=== PATIENT | female | born 1985 | race Two or more races ===

== ENCOUNTER 2017-11-27 10:20 | Emergency (ER) | payer MEDICAID ==
[~2017-11-27] VITALS: Ht 160 cm; Wt 77.1 kg
[2017-11-27 10:36] VITALS: BP 131/73
== END 2017-11-27 11:14 | disposition home or self-care (01) ==
LOC: ER 10:20
DX: N39.0 Urinary tract infection, site not specified (principal)
CPT/HCPCS: 81002

== ENCOUNTER 2022-09-22 18:03 | Emergency (ER) | payer MEDICAID ==
[~2022-09-22] VITALS: Ht 162.6 cm; Wt 77.3 kg
[~2022-09-22 18:03] MED LIST: PREN-96 PO
[2022-09-22 21:05] LABS: Urine Bacteria NONE SEEN /hpf (None Seen); Urine Blood Negative /uL (Negative); Urine Hyaline Cast FEW /lpf (0 - 2); Urine Mucus FEW (None Seen); Urine Specific Gravity 1.022 (1.001-1.035); Urine WBC 39 /hpf (0 - 5)
[2022-09-22] MEDS ORDERED: SULF400T11 PO ×3 (21:14→21:15)
[2022-09-22] MEDS ORDERED: cefTRIAXone SOD 1,000 MG VL IM ONE (21:30)
[2022-09-22] MEDS ORDERED: KETOROLAC TROMETH 60MG/2ML VIAL IM ONE (21:30)
[2022-09-22] MEDS ORDERED: SULFAMETHOX W/TRIMETH(800/160MG) DS TAB PO ONE (21:30)
[2022-09-22 21:49] VITALS: BP 137/86
== END 2022-09-22 21:59 | disposition home or self-care (01) ==
LOC: ER 18:03
DX: N39.0 Urinary tract infection, site not specified (principal); I10 Essential (primary) hypertension
CPT/HCPCS: 81001; 96372; 99284; J0696; J1885

== ENCOUNTER 2024-06-19 01:08 | Emergency (ER) | payer MEDICAID ==
[~2024-06-19] VITALS: Ht 160 cm; Wt 78.7 kg
[~2024-06-19 01:08] MED LIST changes: +SULF400T11 PO
[2024-06-19 02:30] VITALS: BP 148/84; PULSE 94; RESP 16; TEMP 98.1; O2SAT 97
--- NOTE | 2024-06-19 02:58 | ED.PDOC ---
Musculoskeletal HPI Comments 38-year-old female presents to ER with complaints of left knee pain x1 month. Patient with no PMH reports that she tripped and fell and landed on her left knee on cement one month ago and has since been experiencing pain/swelling /bruising to left knee with associated swelling/bruising to left lower leg. Den ies ever seeing a provider with regards to her symptoms. She rates her current pain a 10/10 to left anterior knee with radiation down posterior left leg. Denies use of medications for current symptoms. Patient presents to ER ambulatory on arrival, favoring right leg on ambulation with vitals stable. She states that bruising to left lower leg has improved but the swelling has not. Denies fever, body aches, chills, numbness/tingling, shortness of breath, calf pain, chest pain or any further symptoms/complaints Chief Complaint: Lower Extremity Time Seen by MD: 01:53 Primary Care Provider: UNKNOWN Reviewed Notes: Nurses Notes, Medications, Allergies Allergies: Coded Allergies: NO KNOWN ALLERGIES (Unverified , 11/27/17) Home Meds Active Scripts Sulfamethoxazole-Trimethoprim (Bactrim) 1 Tab Tab, 1 TAB PO BID for 5 Days, #10 TAB 0 Refills Prov:JUAN HAN 09/22/22 Reported Medications Vit W/ Ferrous Fumara ( One Daily) Daily Tab, 1 TAB PO DAILY, #90 TAB 3 Refills 04/01/19 Information Source: Patient Mode of Arrival: Ambulatory Past Medical History PAST MEDICAL HISTORY: HTN Surgical History: Denies all surgeries 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 [facility] 06-19-24 Family History Family History: Unknown Social History Smoker: Non-Smoker Alcohol: Denies ETOH Use Drugs: Denies Drug Use Lives In: Home Constitutional: denies: chills, diaphoresis, fatigue, fever, malaise, sweats, weakness, others EENTM: denies: blurred vision, double vision, ear bleeding, ear discharge, ear drainage, ear pain, ear ringing, eye pain, eye redness, hearing loss, mouth pain, mouth swelling, nasal discharge, nose bleeding, nose congestion, nose pain, photophobia, tearing, throat pain, throat swelling, voice changes, others Respiratory: denies: cough, hemoptysis, orthopnea, SOB at rest, shortness of breath, SOB with excertion, stridor, wheezing, others Cardiovascular: denies: chest pain, dizzy spells, diaphoresis, Dyspnea on exertion, edema, irregular heart beat, left arm pain, lightheadedness, palpitations, PND, syncope, others Gastrointestinal: denies: abdomen distended, abdominal pain, blood streaked bowels, constipated, diarrhea, dysphagia, difficulty swallowing, hematemesis, melena, nausea, poor appetite, poor fluid intake, rectal bleeding, rectal pain, vomiting, others Genitourinary: denies: abnormal vagina bleeding, burning, dyspareunia, dysuria, flank pain, frequency, hematuria, incontinence, pain, , vagina discharge, urgency, others Neurological: denies: dizziness, fainting, headache, left sided numbness, left sided weakness, numbness, paresthesia, pre-existing deficit, right sided numbness, right sided weakness, seizure, speech problems, tingling, tremors, weakness, others Musculoskeletal: reports: others (As stated in HPI) Integumetry: reports: others (As stated in HPI) Allergic/Immunocompromised: denies: Difficulty Healing, Frequent Infections, Hives, Itching, others Hematologic/Lymphatic: denies: anemia, blood clots, easy bleeding, easy bruising, swollen glands, others Endocrine: denies: excessive hunger, excessive sweating, excessive thirst, excessive urination, flushing, intolerance to cold, intolerance to heat, unexplained weight gain, unexplained weight loss, others Psychiatric: denies: anxiety, bipolar disorder, depression, hopeless, panic disorder, schizophrenia, sleepless, suicidal, others Physical Exam General Appearance: Mild Distress (Due to pain), Obese HEENT: PERRL/EOMI Neck: Full Range of Motion, Non-Tender, Normal Respiratory: Chest Non-Tender, Lungs Clear, No Accessory Muscle Use, No Respiratory Distress, Normal Breath Sounds Cardiovascular: No Murmur, No Gallop, Regular Rate/Rhythm Breast Exam: Deferred Gastrointestinal: NOT DONE Genitalia: Deferred Pelvic: Deferred Rectal: Deferred Extremities: Calf tenderness (Slight TTP to left posterior calf noted), Normal capillary refill, Normal range of motion, No pedal edema Musculoskeletal : Extremity Location: Knee (TTP/mild swelling/ecchymosis noted to left anterior knee. Positive anterior drawer test left knee. Negative Luis Miguel's test left knee. Slight swelling/ecchymosis also noted to left mid tib-fib. No deformities appreciated. Pulses intact. Patient favors right leg on ambulation due to pain localized to left anterior knee) Neurologic: Alert, No Motor Deficits, No Sensory Deficits Cerebellar Function: Normal Reflexes: Normal Skin: Dry, Warm Peripheral Pulses: 2+ femoral (R), 2+ femoral (L), 2+ dorsalis pedis (R), 2+ dorsalis pedis (L) Lymphatic: Inguinal Node Tender (L) Was a procedure done? Was a procedure done?: No Sedation Sedation?: No Differential Diagnosis EXT Differential Diagnosis: Deep Vein Thrombosis, Fracture, Dislocation, Neurovascular injury X-Ray, Labs, Meds, VS Vital Signs Date Time Temp Pulse Resp B/P (MAP) Pulse Ox O2 Delivery O2 Flow Rate FiO2 06/19/24 02:30 94 16 97 Room Air* 0 21 06/19/24 02:30 98.1 94 16 148/84 (105) 97 98.1 06/19/24 01:25 98.1 94 16 156/94 (114) 100 Current Medications Medications (Trade) Dose Ordered Sig/Dom Route Start Time Stop Time Status Last Admin Ketorolac Tromethamine (Toradol Injection) 60 mg ONCE ONCE IM 06/19/24 03:00 06/19/24 03:01 DC 06/19/24 03:18 PATIENT: MOLLY AJ ACCT: [id number] UNIT: [id number] : 1985 LOC: ER ROOM / BED: / AGE / SEX: 38 / F ADM STATUS: REG ER SERVICE 0151 ORDERING PHYSICIAN: KYM DE LA TORRE PROCEDURE(s): LLDVT - LT Lower DVT REASON: left leg pain ORDER NUMBER(s): [id number], ACCESSION NUMBER(s): [id number] Examination: LLDVT CLINICAL INDICATION: left leg pain COMPARISON: None. TECHNIQUE: Using real-time ultrasonic imaging and color Doppler, the deep venous system of the left lower extremity was studied carefully. FINDINGS: Examination of the left common femoral vein, deep femoral vein, proximal, middle and distal segments of the left superficial femoral vein, popliteal vein and left posterior tibial vein reveal normal phasicity, full compression and augmentation. No thrombus is visualized in the images submitted. An enlarged reactive left inguinal lymph node is identified 4.1 x 3.4 X 1.0 cm with a well-defined fatty hilum. IMPRESSION: 1. No evidence of deep venous thrombosis left lower extremity could be identified. 2. Mildly enlarged reactive left inguinal lymph node is identified. Electronically Signed 06/19/2024 03:09 Shimon Mcduffie ATED BY: RACHAEL SANCHEZ MD DICTATED DATE/TIME: 06/19/24308 SIGNED BY: RACHAEL SANCHEZ MD SIGNED DATE/TIME: 06/19/24308 CC: PATIENT: MOLLY AJ ACCT: [id number] UNIT: [id number] : 1985 LOC: ER ROOM / BED: / AGE / SEX: 38 / F ADM STATUS: REG ER SERVICE 4 ORDERING PHYSICIAN: KYM DE LA TORRE PROCEDURE(s): LKNE3 - L KNEE 3V XRAY REASON: left knee pain ORDER NUMBER(s): [id number], ACCESSION NUMBER(s): [id number] CLINICAL INDICATION: left knee pain TECHNIQUE: XY L KNEE 3V XRAY Comparison: None FINDINGS/IMPRESSION: There is no evidence of acute fracture or dislocation. Mild osteoarthrtiis. The alignment is anatomical. There is no radiopaque foreign body. ATED BY: KELBY NG MD DICTATED DATE/TIME: 06/19/24354 SIGNED BY: KELBY NG MD SIGNED DATE/TIME: 06/19/24354 CC: Left lower DVT ultrasound reviewed Left knee x-ray reviewed Patient neurovascularly intact Left knee immobilizer applied Crutches ordered, patient educated on proper use. Was advised to use at all times Toradol 60 mg IM ordered Advised on rest/ no strenuous activity, elevation and alternate ice on/off as needed for pain/swelling Patient provided information with regards to local PCPs and orthopedics and advised to follow up in 1-2 days Patient verbalized understanding and agreeable with current plan of care Advised to return to ER immediately if symptoms worsen Images Reviewed?: Images reviewed and evaluated by me Time of 1ST Reevaluation: 02:24 Reevaluation 1ST: N/A Patient Education/Counseling: Diagnosis, Treatment, Prognosis, Need For Follow Up Family Education/Counseling: No Family Present Departure 1 Departure Time of Disposition: 02:52 Impression: Primary Impression: Left knee sprain Qualified Codes: S83.92XA - Sprain of unspecified site of left knee, initial encounter Additional Impression: Contusion of lower limb, left Qualified Codes: S80.12XA - Contusion of left lower leg, initial encounter Disposition: 01 HOME / SELF CARE / HOMELESS Condition: Stable Discharged With: Friend Critical Care Note Critical Care Time?: No Stability Stability form required: No Heart Score Heart Score: Heart Score Response (Comments) Value History N/A 0 EKG N/A 0 Age N/A 0 Risk Factors N/A 0 Troponin N/A 0 Total 0 KYM DE LA TORRE Jun 19, 2024 02:58
[2024-06-19] MEDS: KETOROLAC TROMETH 60MG/2ML VIAL IM ONE (03:18)
--- NOTE | 2024-06-19 03:18 | DVH ---
Examination: LLDVT CLINICAL INDICATION: left leg pain COMPARISON: None. TECHNIQUE: Using real-time ultrasonic imaging and color Doppler, the deep venous system of the left lower extremity was studied carefully. FINDINGS: Examination of the left common femoral vein, deep femoral vein, proximal, middle and dista l segments of the left superficial femoral vein, popliteal vein and left posterior tibial vein reveal normal phasicity, full compression and augmentation. No thrombus is visualized in the images submit leonard. An enlarged reactive left inguinal lymph node is identified 4.1 x 3.4 X 1.0 cm with a well-defined fa tty hilum. IMPRESSION: 1. No evidence of deep venous thrombosis left lower extremity could be identified. 2. Mildly enlarged reactive left inguinal lymph node is identified. Electronically Signed 06/19/2024 03:09 Shimon Mcduffie
--- NOTE | 2024-06-19 03:57 | DVH ---
CLINICAL INDICATION: left knee pain TECHNIQUE: XY L KNEE 3V XRAY Comparison: None FINDINGS/IMPRESSION: There is no evidence of acute fracture or dislocation. Mild osteoarthrtiis. The alignment is anatomical. There is no radiopaque foreign body.
== END 2024-06-19 04:05 | disposition home or self-care (01) ==
LOC: ER 01:08
DX: S83.92XA Sprain of unspecified site of left knee, initial encounter (principal); S80.12XA Contusion of left lower leg, initial encounter; I10 Essential (primary) hypertension; W01.0XXA Fall on same level from slipping, tripping and stumbling without subsequent striking against object, initial encounter; Y93.89 Activity, other specified; Y92.89 Other specified places as the place of occurrence of the external cause; Y99.8 Other external cause status
CPT/HCPCS: 29505; 73562; 93971; 96372; 99285; J1885

== ENCOUNTER 2025-04-23 13:07 | Inpatient (IN) | payer SELFPAY ==
[~2025-04-23] VITALS: Ht 160 cm; Wt 67.8 kg
--- NOTE | 2025-04-23 13:48 | ED.PDOC ---
GI ASSESSMENT HPI Comments 39 y/o F, with PMHx of liver cirrhosis presents to the ED for CC of abdominal pain and distension. Patient states, that she has been experiencing abdominal pain with associated distension [id number]. Patient reports, that she has received x2 paracentesis in the past with the most recent being [id number] ago. Patient denies nausea, vomiting, diarrhea, constipation, or fever. No other symptoms or modifying factors are present at this time. Chief Complaint: Abdominal Pain Time Seen by MD: 13:40 Primary Care Provider: UNKNOWN Reviewed Notes: Nurses Notes, Medications, Allergies Allergies: Coded Allergies: NO KNOWN ALLERGIES (Unverified , 11/27/17) Home Meds Active Scripts Sulfamethoxazole-Trimethoprim (Bactrim) 1 Tab Tab, 1 TAB PO BID for 5 Days, #10 TAB 0 Refills Prov:JUAN HAN 09/22/22 Reported Medications Vit W/ Ferrous Fumara ( One Daily) Daily Tab, 1 TAB PO DAILY, #90 TAB 3 Refills 04/01/19 Information Source: Patient Mode of Arrival: Ambulatory Timing: Months Duration: Since onset Prehospital treatment: None Vomitus: None Stool: Normal Severity: Moderate Recent: None Recent Hx of: None Pain Location: Diffuse Modifying Factors: Nothing Associated sign and symptoms: Abdominal Pain Past Medical History PAST MEDICAL HISTORY: HTN, Liver Surgical History: Denies all surgeries BOTTOM FINISHER History: No Pertinent BOTTOM FINISHER History Family History Family History: Unknown Social History Smoker: Non-Smoker Alcohol: Denies ETOH Use Drugs: Denies Drug Use Lives In: Home Constitutional: denies: chills, diaphoresis, fatigue, fever, malaise, sweats, weakness, others EENTM: denies: blurred vision, double vision, ear bleeding, ear discharge, ear drainage, ear pain, ear ringing, eye pain, eye redness, hearing loss, mouth pain, mouth swelling, nasal discharge, nose bleeding, nose congestion, nose bailey n, photophobia, tearing, throat pain, throat swelling, voice changes, others Respiratory: denies: cough, hemoptysis, orthopnea, SOB at rest, shortness of breath, SOB with excertion, stridor, wheezing, others Cardiovascular: denies: chest pain, dizzy spells, diaphoresis, Dyspnea on exertion, edema, irregular heart beat, left arm pain, lightheadedness, palpitations, PND, syncope, others Gastrointestinal: reports: abdomen distended; denies: abdominal pain, blood streaked bowels, constipated, diarrhea, dysphagia, difficulty swallowing, hematemesis, melena, nausea, poor appetite, poor fluid intake, rectal bleeding, rectal pain, vomiting, others Genitourinary: denies: abnormal vagina bleeding, burning, dyspareunia, dysuria, flank pain, frequency, hematuria, incontinence, pain, , vagina discharge, urgency, others Neurological: denies: dizziness, fainting, headache, left sided numbness, left sided weakness, numbness, paresthesia, pre-existing deficit, right sided numbness, right sided weakness, seizure, speech problems, tingling, tremors, weakness, others Musculoskeletal: denies: back pain, gout, joint pain, joint swelling, muscle pain, muscle stiffness, neck pain, others Integumetry: denies: bruises, change in color, change in hair/nails, dryness, laceration, lesions, lumps, rash, wounds, others Allergic/Immunocompromised: denies: Difficulty Healing, Frequent Infections, Hives, Itching, others Hematologic/Lymphatic: denies: anemia, blood clots, easy bleeding, easy bruising, swollen glands, others Endocrine: denies: excessive hunger, excessive sweating, excessive thirst, excessive urination, flushing, intolerance to cold, intolerance to heat, unexplained weight gain, unexplained weight loss, others Psychiatric: denies: anxiety, bipolar disorder, depression, hopeless, panic disorder, schizophrenia, sleepless, suicidal, others All Other Systems: Reviewed and Negative Physical Exam General Appearance: No Apparent Distress, Normal HEENT: Normal ENT Inspection, Pharynx Normal Neck: Full Range of Motion, Non-Tender, Normal, Normal Inspection Respiratory: Chest Non-Tender, Lungs Clear, No Accessory Muscle Use, No Respiratory Distress, Normal Breath Sounds Cardiovascular: No Edema, No Murmur, No Gallop, Normal Peripheral Pulses, Regular Rate/Rhythm Breast Exam: Deferred Gastrointestinal: No Organomegaly, No Pulsatile Mass, Normal Bowel Sounds, Other (abdominal distension, purtubadent abdomine) Genitalia: Deferred Pelvic: Deferred Rectal: Deferred Extremities: No calf tenderness, Normal capillary refill, Normal inspection, Normal range of motion, Non-tender, No pedal edema Musculoskeletal : Apperance: Normal Neurologic: Alert, tube and rod straightener II-XII nml as Tested, No Motor Deficits, Normal Affect, Normal Mood, No Sensory Deficits Cerebellar Function: Normal Reflexes: Normal Skin: Dry, Normal Color, Warm Lymphatic: No Adenopathy Was a procedure done? Was a procedure done?: No GI differential Dx Differential Diagnosis: Gastritis/PUD, Gastroenteritis, Dehydration, Electrolyte Imbalance, Other (abdominal ascites, liver cirrhosis) X-Ray, Labs, Meds, VS Vital Signs Date Time Temp Pulse Resp B/P (MAP) Pulse Ox O2 Delivery O2 Flow Rate FiO2 04/23/25 13:08 97.7 100 18 127/74 100 97.7 Lab Test 04/23/25 13:57 Range/Units White Blood Count 3.4 L 4.4-10.8 10^3/uL Red Blood Count 3.46 L 4.0-5.20 10^6/uL Hemoglobin 8.5 L 12.2-16.2 g/dL Hematocrit 25.9 L 36.0-46.0 % Mean Corpuscular Volume 74.8 L 80.0-100.0 fL Mean Corpuscular Hemoglobin 24.5 L 28.0-32.0 pg Mean Corpuscular Hemoglobin Concent 32.7 32.0-36.0 g/dL Red Cell Distribution Width 24.9 H 11.8-14.3 % Platelet Count 123 L 140-450 10^3/uL Mean Platelet Volume 8.2 6.9-10.8 fL Neutrophils (%) (Auto) 60.9 37.0-80.0 % Lymphocytes (%) (Auto) 30.0 10.0-50.0 % Monocytes (%) (Auto) 5.9 0.0-12.0 % Eosinophils (%) (Auto) 2.4 0.0-7.0 % Basophils (%) (Auto) 0.8 0.0-2.0 % Neutrophils # (Auto) 2.1 1.6-8.6 10 ^3/uL Lymphocytes # (Auto) 1.0 0.4-5.4 10 ^3/uL Monocytes # (Auto) 0.2 0-1.3 10 ^3/uL Eosinophils # (Auto) 0.1 0-0.8 10 ^3/uL Basophils # (Auto) 0 0-0.2 10 ^3/uL Nucleated Red Blood Cells 0.1 % Prothrombin Time 11.9 H 9.3-11.8 sec Prothrombin Time INR 1.14 0.9-1.15 Activated Partial Thromboplast Time 29.0 24.5-34.5 SEC Sodium Level 137 136-145 mmol/L Potassium Level 3.7 3.5-5.1 mmol/L Chloride Level 106 98-107 mmol/L Carbon Dioxide Level 22 20-31 mmol/L Anion Gap 9 5-15 Blood Urea Nitrogen 10 9-23 mg/dL Creatinine 0.51 L 0.550-1.02 mg/dL Glomerular Filtration Rate Calc 120 >90 mL/min BUN/Creatinine Ratio 19.6 10.0-20.0 Serum Glucose 97 74-106 mg/dL Calcium Level 7.8 L 8.7-10.4 mg/dL Total Bilirubin 1.0 0.2-1.0 mg/dL Aspartate Amino Transferase (AST) 73 H 13-40 U/L Alanine Aminotransferase (ALT) 24 7-40 U/L Alkaline Phosphatase 190 H 46-116 U/L Ammonia < 10 L 11-32 umol/L Total Protein 7.7 5.7-8.2 g/dL Albumin 2.4 L 3.2-4.8 g/dL [place] [address] Ph: [phone] DIAGNOSTIC IMAGING Diagnostic Imaging Report : [id number] Signed PATIENT: MOLLY AJ ACCT: [id number] UNIT: [id number] : 1985 LOC: ER ROOM / BED: / AGE / SEX: 39 / F ADM STATUS: REG ER SERVICE 1343 ORDERING PHYSICIAN: TRINIDAD SPEAR MD PROCEDURE(s): ABPLIV - CT AB PEL WITH IV CON ONLY REASON: abdominal pain, cirrhosis ORDER NUMBER(s): [id number], ACCESSION NUMBER(s): [id number] Indication: abdominal pain, cirrhosis Technique: CT axial images of the abdomen and pelvis are obtained with intravenous contrast. Coronal and sagittal reformats were obtained. Radiation Dose Information: CTDI volume is 19.1 mGy. Dose-length product is 986 mGy*cm Comparison: CT ABD/PEL W - IV on DOS: 03/20/25 FINDINGS: Lung bases demonstrate atelectasis. Small right pleural effusion. Adrenal glands unremarkable. Spleen is enlarged measuring 15 cm AP hypodense lesions measuring up to 3 cm. Splenic varices. Pancreas unremarkable. Cirrhotic morphology liver. Numerous hepatic hypodensities. 2.2 cm left hepatic lobe hypervascular lesion. Mesenteric lymphadenopathy of the 2.[address] evidence for cholelithiasis. No hydronephrosis. Nonobstructing left renal calculi up to 3 mm. Moderate gastric distention. Small bowel loops are normal in caliber. Moderate volume stool in the colon. Normal appendix. Moderate volume of ascites fluid. Paraumbilical hernia containing ascites fluid and fat measuring 4.9 x 3.4 cm. Retroperitoneal lymphadenopathy up to 1.6 cm. Bladder partially distended. Soft tissue edema/anasarca. There is no aggressive osseous process. [id number] thoracolumbar degenerative disc disease most pronounced at L5-S1. Hypodense lesion in the uterus measuring 1.4 cm. IMPRESSION: Cirrhotic morphology liver with Massive splenomegaly. Volume ascites fluid. Splenic hypodense lesions up to 3 cm could represent infarcts. Recommend multiphasic MRI abdomen with and without contrast to further evaluate. 2.2 cm left hepatic lobe hypervascular lesion. Recommend multiphasic MRI abdomen with and without contrast to evaluate. Considerations including hepatic mass/neoplasm, portosystemic shunt. Numerous hepatic hypodensities, possibly regenerative nodules. Recommend correlation with alpha fetoprotein levels to exclude diffuse HCC. Multiphasic MRI abdomen with and without contrast can also be obtained to further evaluate. Paraumbilical hernia containing ascites fluid and fat measuring 4.9 cm. Mesenteric, retroperitoneal lymphadenopathy. Small right pleural effusion. Nonobstructing left renal calculi. 1.4 cm uterine hypodense lesion which can be further characterized with pelvic ultrasound. Other findings as detailed above. ATED BY: BOBBY MIDDLETON MD DICTATED DATE/TIME: 04/23/251617 SIGNED BY: BOBBY MIDDLETON MD SIGNED DATE/TIME: 04/23/251617 CC: Time of 1ST Reevaluation: 14:10 Reevaluation 1ST: Unchanged Patient Education/Counseling: Diagnosis, Treatment Family Education/Counseling: No Family Present SEPSIS Sepsis Screen Date sepsis recognized/suspect: Apr 23, 2025 Time Sepsis recognized/suspect: 1310 Recent Procedure: No On Antibiotic Therapy: No Respiratory Rate >20: No Heart Rate >90: Yes Temp<36 C (96.8 F) or >38.3 C: No SBP <90 or MAP <65 mmHG: No New Acute Mental Status Change: No Is the patient on CPAP, BIPAP,: No Physician Orders Ct Ab Pel With Iv Con Only (04/23/25 13:43) Vital Signs Date Time Temp Pulse Resp B/P (MAP) Pulse Ox O2 Delivery O2 Flow Rate FiO2 04/23/25 13:08 97.7 100 18 127/74 100 97.7 Laboratory Tests Test 04/23/25 13:57 White Blood Count 3.4 10^3/uL (4.4-10.8) L Departure 1 Departure Time of Disposition: 16:55 (Patient presented with abdominal pain that was concerning for possible appendicits, gastritis, cholecystitis, colitis, gastroenteritis, sbo, or orther possible surgical emergency. Data: 1. I ordered and reviewed the result of at least 3 labs including a CBC, BMP, and Urinalysis. 2. I independently interpreted the following tests: CT Abdomen and Pelvis is concerning for malignancy, cirrhosis, worsening ascites.Risk:This patient has a high risk of morbidity due to further diagnostic testing or treatment and may suffer from an acute abdominal process disorder. Workup reveals some for malignancy and worsening ascites with a intractable abdominal pain and patient should be admitted for further workup. and possible expert consultation. ) Impression: Primary Impression: Intractable abdominal pain Additional Impressions: Cirrhosis Qualified Codes: K74.60 - Unspecified cirrhosis of liver; R18.8 - Other ascites Ascites Qualified Codes: R18.8 - Other ascites Disposition: 09 ADMITTED INPATIENT Admit to: Med Surg Condition: Guarded Critical Care Note Critical Care Time?: Yes Critical care comment: Intractable abdominal pain Authorized and Performed by: Trinidad Spear MD Total critical care time: Approximately 38 minutes Due to a high probability of clinically significant, life threatening deterioration, the patient required my highest level of preparedness to intervene emergently and I personally spent this critical care time directly and personally managing the patient. This critical care time included obtaining a history; examining the patient; pulse oximetry; ordering and review of studies; arranging urgent treatment with development of a management plan; evaluation of patient's response to treatment; frequent reassessment; and, discussions with other providers. This critical care time was performed to assess and manage the high probability of imminent, life-threatening deterioration that could result in multi-organ failure. It was exclusive of separately billable procedures and treating other patients and teaching time. Please see my other sections and the rest of the note for further information on patient assessment and treatment. Stability Stability form required: No Heart Score Heart Score: Heart Score Response (Comments) Value History N/A 0 EKG N/A 0 Age N/A 0 Risk Factors N/A 0 Troponin N/A 0 Total 0 I personally scribed for TRINIDAD SPEAR MD ([email or web address]) on 04/23/25 at 13:48. Electronically submitted by Jagruti Brownlee ([email or web address]). I personally scribed for TRINIDAD SPEAR MD ([email or web address]) on 04/23/25 at 16:50. Electronically submitted by Jagruti Brownlee ([email or web address]). TRINIDAD SPEAR MD Apr 23, 2025 13:48
[2025-04-23 14:07] LABS: Hematocrit 25.9 % (36.0-46.0); Mean Corpuscular Volume 74.8 fL (80.0-100.0); Nucleated Red Blood Cells % 0.1 %
[2025-04-23 14:09] LABS: Hemoglobin 8.5 g/dL (12.2-16.2); Mean Corpuscular Hemoglobin 24.5 pg (28.0-32.0)
[2025-04-23 14:21] LABS: Alanine Aminotransferase 24 U/L (7-40); Anion Gap 9 (5-15); BUN/Creatinine Ratio 19.6 (10.0-20.0); Bilirubin, Total 1.0 mg/dL (0.2-1.0); Blood Urea Nitrogen 10 mg/dL (9-23); Carbon Dioxide 22 mmol/L (20-31); Chloride 106 mmol/L (98-107); Glucose 97 mg/dL (74-106); Potassium 3.7 mmol/L (3.5-5.1); Sodium 137 mmol/L (136-145); Total Protein 7.7 g/dL (5.7-8.2)
[2025-04-23 14:23] LABS: Albumin 2.4 g/dL (3.2-4.8); Alkaline Phosphatase 190 U/L (46-116); Calcium 7.8 mg/dL (8.7-10.4)
[2025-04-23 14:24] LABS: INR 1.14 (0.9-1.15); Partial Thromboplastin Time 29.0 SEC (24.5-34.5); Prothrombin Time 11.9 sec (9.3-11.8)
[2025-04-23] MEDS: IOHEXOL 300 MG/ML 100ML BOTTLE IJ ONE (15:33)
--- NOTE | 2025-04-23 16:17 | DVH ---
Indication: abdominal pain, cirrhosis Technique: CT axial images of the abdomen and pelvis are obtained with intravenous contrast. Coronal and sagittal reformats were obtained. Radiation Dose Information: CTDI volume is 19.1 mGy. Dose-length product is 986 mGy*cm Comparison: CT ABD/PEL W - IV on DOS: 03/20/25 FINDINGS: Lung bases demonstrate atelectasis. Small right pleural effusion. Adrenal glands unremarkable. Spleen is enlarged measuring 15 cm AP hypodense lesions measuring up to 3 cm. Splenic varices. Pancreas unremarkable. Cirrhotic morphology liver. Numerous hepatic hypodensities. 2.2 cm left hepatic lobe hypervascular l esion. Mesenteric lymphadenopathy of the 2.[address] evidence for cholelithiasis. No hydronephrosis. Nonobstructing left renal calculi up to 3 mm. Moderate gastric distention. Small bowel loops are normal in caliber. Moderate volume stool in the colon. Normal appendix. Moderate volume of ascites fluid. Paraumbilical hernia containing ascites fluid and fat measuring 4.9 x 3.4 cm. Retroperitoneal lymphadenopathy up to 1.6 cm. Bladder partially distended. Soft tissue edema/anasarca. There is no aggressive osseous process. [id number] thoracolumbar degenerative disc disease most pronounced at L5-S1. Hypodense lesion in the uterus measuring 1.4 cm. IMPRESSION: Cirrhotic morphology liver with Massive splenomegaly. Volume ascites fluid. Splenic hypodense lesions up to 3 cm could represent infarcts. Recommend multiphasic MRI abdomen wit h and without contrast to further evaluate. 2.2 cm left hepatic lobe hypervascular lesion. Recommend multiphasic MRI abdomen with and without co ntrast to evaluate. Considerations including hepatic mass/neoplasm, portosystemic shunt. Numerous hepatic hypodensities, possibly regenerative nodules. Recommend correlation with alpha feto protein levels to exclude diffuse HCC. Multiphasic MRI abdomen with and without contrast can also be obtained to further evaluate. Paraumbilical hernia containing ascites fluid and fat measuring 4.9 cm. Mesenteric, retroperitoneal lymphadenopathy. Small right pleural effusion. Nonobstructing left renal calculi. 1.4 cm uterine hypodense lesion which can be further characterized with pelvic ultrasound. Other findings as detailed above.
[2025-04-23] MEDS: CEFEPIME 2GM/50ML NS 50 ML IV ONE (18:13)
[2025-04-23] MEDS: MORPHINE SULFATE 4 MG/ML SYR/VIAL IV ONE (18:16)
[2025-04-23] MEDS: ONDANSETRON HCL 4 MG/2 ML VIAL IV ONE (18:16)
--- NOTE | 2025-04-23 19:10 | DVHHP2 ---
Admitting Diagnosis: Abdominal pain History of Present Illness 39 y/o F, with PMHx of liver cirrhosis presents to the ED for CC of abdominal pain and distension. Patient states, that she has been experiencing abdominal pain with associated distension [id number]. Patient reports, that she has received x2 paracentesis in the past with the most recent being g0daves ago. Patient denies nausea, vomiting, diarrhea, constipation, or fever. No other symptoms or modifying factors are present at this time. PAST MEDICAL HISTORY: HTN, Liver Surgical History: Denies all surgeries MARKETING OPERATIONS MANAGER History: No Pertinent MARKETING OPERATIONS MANAGER History Family History Family History: Unknown Social History Smoker: Non-Smoker Alcohol: Denies ETOH Use Drugs: Denies Drug Use Lives In: Home Patient Family History: Patient reports no known family medical history. Allergies: Coded Allergies: NO KNOWN ALLERGIES (Unverified , 11/27/17) Home Meds Active Scripts Sulfamethoxazole-Trimethoprim (Bactrim) 1 Tab Tab, 1 TAB PO BID for 5 Days, #10 TAB 0 Refills Prov:JUAN HAN 09/22/22 Reported Medications Vit W/ Ferrous Fumara ( One Daily) Daily Tab, 1 TAB PO DAILY, #90 TAB 3 Refills 04/01/19 Vital Signs Vital Signs Date Time Temp Pulse Resp B/P (MAP) Pulse Ox O2 Delivery O2 Flow Rate FiO2 04/23/25 18:16 94 16 123/123 04/23/25 18:00 100 04/23/25 13:08 97.7 97.7 Physical Exam Generally-39 years old woman, well nourished well developed. Mild distress HEENT-atraumatic normocephalic Heart-regular rate and rhythm Lungs clear to auscultate bilaterally Abdomen soft nontender nondistended Abdomen soft, tender to palpate, nondistended Musculoskeletal-plus two pedal edema Neuro-AO three, no focal deficits SEPSIS Sepsis Screen Date sepsis recognized/suspect: Apr 23, 2025 Time Sepsis recognized/suspect: 1310 Recent Procedure: No On Antibiotic Therapy: No Respiratory Rate >20: No Heart Rate >90: Yes Temp<36 C (96.8 F) or >38.3 C: No SBP <90 or MAP <65 mmHG: No New Acute Mental Status Change: No Is the patient on CPAP, BIPAP,: No Physician Orders Ct Ab Pel With Iv Con Only (04/23/25 13:43) Cefepime 2gm/50ml Ns (Maxipime 2gm/50ml) (04/23/25 17:00) Blood Culture (04/23/25 16:57) Erythrocyte Sedimentation Rate (04/23/25 19:04) Procalcitonin (04/23/25 19:04) Carcinoembryonic Antigen (04/23/25 19:04) Mri Abd & Plevis W/Wo Cont (04/23/25 19:04) (Nf) Vit W/ Ferrous Fumara (Pre (04/24/25 10:00) Furosemide Injection (Lasix Injection) (04/24/25 06:00) Comprehensive Metabolic Panel (04/24/25 05:00) Comprehensive Metabolic Panel (04/25/25 05:00) Comprehensive Metabolic Panel (04/26/25 05:00) Comprehensive Metabolic Panel (04/27/25 05:00) Comprehensive Metabolic Panel (04/28/25 05:00) Complete Blood Count (04/24/25 05:00) Complete Blood Count (04/25/25 05:00) Complete Blood Count (04/26/25 05:00) Complete Blood Count (04/27/25 05:00) Complete Blood Count (04/28/25 05:00) *Consult / (04/23/25 19:04) Afp Serum Tumor Marker (04/23/25 19:06) Vital Signs Date Time Temp Pulse Resp B/P (MAP) Pulse Ox O2 Delivery O2 Flow Rate FiO2 04/23/25 18:16 94 16 123/123 04/23/25 18:00 94 16 123/68 (86) 100 04/23/25 13:08 97.7 100 18 127/74 100 97.7 Laboratory Tests Test 04/23/25 13:57 04/23/25 17:06 White Blood Count 3.4 10^3/uL (4.4-10.8) L Lactic Acid Level 1.4 mmol/L (0.4-2.0) Medications Medications Dose Ordered Sig/Dom Route Start Time Stop Time Status Last Admin Dose Admin Cefepime HCl 50 ml @ 12.5 mls/hr ONCE ONCE IV 04/23/25 17:00 04/23/25 20:59 04/23/25 18:13 Morphine Sulfate 4 mg ONCE ONCE IV 04/23/25 17:00 04/23/25 17:18 DC 04/23/25 18:16 Ondansetron HCl 4 mg ONCE ONCE IV 04/23/25 17:00 04/23/25 17:18 DC 04/23/25 18:16 Results Labs Test 04/23/25 17:06 04/23/25 13:57 Range/Units Lactic Acid Level 1.4 0.4-2.0 mmol/L White Blood Count 3.4 L 4.4-10.8 10^3/uL Red Blood Count 3.46 L 4.0-5.20 10^6/uL Hemoglobin 8.5 L 12.2-16.2 g/dL Hematocrit 25.9 L 36.0-46.0 % Mean Corpuscular Volume 74.8 L 80.0-100.0 fL Mean Corpuscular Hemoglobin 24.5 L 28.0-32.0 pg Mean Corpuscular Hemoglobin Concent 32.7 32.0-36.0 g/dL Red Cell Distribution Width 24.9 H 11.8-14.3 % Platelet Count 123 L 140-450 10^3/uL Mean Platelet Volume 8.2 6.9-10.8 fL Neutrophils (%) (Auto) 60.9 37.0-80.0 % Lymphocytes (%) (Auto) 30.0 10.0-50.0 % Monocytes (%) (Auto) 5.9 0.0-12.0 % Eosinophils (%) (Auto) 2.4 0.0-7.0 % Basophils (%) (Auto) 0.8 0.0-2.0 % Neutrophils # (Auto) 2.1 1.6-8.6 10 ^3/uL Lymphocytes # (Auto) 1.0 0.4-5.4 10 ^3/uL Monocytes # (Auto) 0.2 0-1.3 10 ^3/uL Eosinophils # (Auto) 0.1 0-0.8 10 ^3/uL Basophils # (Auto) 0 0-0.2 10 ^3/uL Nucleated Red Blood Cells 0.1 % Prothrombin Time 11.9 H 9.3-11.8 sec Prothrombin Time INR 1.14 0.9-1.15 Activated Partial Thromboplast Time 29.0 24.5-34.5 SEC Sodium Level 137 136-145 mmol/L Potassium Level 3.7 3.5-5.1 mmol/L Chloride Level 106 98-107 mmol/L Carbon Dioxide Level 22 20-31 mmol/L Anion Gap 9 5-15 Blood Urea Nitrogen 10 9-23 mg/dL Creatinine 0.51 L 0.550-1.02 mg/dL Glomerular Filtration Rate Calc 120 >90 mL/min BUN/Creatinine Ratio 19.6 10.0-20.0 Serum Glucose 97 74-106 mg/dL Calcium Level 7.8 L 8.7-10.4 mg/dL Total Bilirubin 1.0 0.2-1.0 mg/dL Aspartate Amino Transferase (AST) 73 H 13-40 U/L Alanine Aminotransferase (ALT) 24 7-40 U/L Alkaline Phosphatase 190 H 46-116 U/L Ammonia < 10 L 11-32 umol/L Total Protein 7.7 5.7-8.2 g/dL Albumin 2.4 L 3.2-4.8 g/dL Primary Diagnosis Liver cirrhosis alcoholic Ascites Liver nodules Spleen lesion Uterine lesion Paramedial hernia Nonobstructing renal calculus Plan IV Lasix 40 mg b.i.d. Potassium greater than four, magnesium greater than two MRI abdomen and pelvis to assess for spine lesion and liver lesion and uterine lesion Check AFP, CEA Alcohol cessation Daily weight Fluid restriction Consult Otto for paracentesis. Medication reconciliation by pharmacy Full code SCD for DVT prophylaxis No GI prophylaxis needed Plan discussed with: Patient Date of Service: Apr 23, 2025 Billing Provider: CATRINA WEBB MD Common Visit Codes: [id number] INP/OBS CARE (HIGH) CATRINA WEBB MD Apr 23, 2025 19:10
[2025-04-23] MEDS ORDERED: ONDANSETRON HCL 4 MG/2 ML VIAL IV PRN (19:15)
[2025-04-23] MEDS ORDERED: ACETAMINOPHEN 325 MG TAB PO PRN (19:15)
[2025-04-23] MEDS: SODIUM CHLOR 0.9% PF (SALINE LOCK) 10ML VIAL/SYR IV SCH (21:39)
[2025-04-23] MEDS: HYDROcodone-ACET 5/325MG TAB PO PRN (22:04)
[2025-04-24] VITALS (9 sets, daily range): BP systolic 108–126; BP diastolic 72–85; PULSE 19–98; RESP 15–93; TEMP 97.3–98.7; O2SAT 94–97
[2025-04-24 04:44] LABS: Hematocrit 22.8 % (36.0-46.0); Hemoglobin 7.7 g/dL (12.2-16.2); Mean Corpuscular Hemoglobin 27.0 pg (28.0-32.0); Mean Corpuscular Volume 80.1 fL (80.0-100.0); Nucleated Red Blood Cells % 0.2 %
[2025-04-24 04:49] LABS: Alanine Aminotransferase 21 U/L (7-40); Anion Gap 8 (5-15); BUN/Creatinine Ratio 21.6 (10.0-20.0); Blood Urea Nitrogen 11 mg/dL (9-23); Carbon Dioxide 21 mmol/L (20-31); Chloride 106 mmol/L (98-107); Glucose 75 mg/dL (74-106); Potassium 4.1 mmol/L (3.5-5.1); Total Protein 6.9 g/dL (5.7-8.2)
[2025-04-24 04:51] LABS: Bilirubin, Total 0.9 mg/dL (0.2-1.0)
[2025-04-24 04:54] LABS: Albumin 2.1 g/dL (3.2-4.8); Alkaline Phosphatase 154 U/L (46-116); Calcium 7.7 mg/dL (8.7-10.4); Sodium 135 mmol/L (136-145)
[2025-04-24] MEDS: FUROSEMIDE 40 MG/4 ML VIAL IV SCH (05:21)
[2025-04-24] MEDS: diphenhdrAMINE HCL 50 MG/1 ML VL IV PRN (05:21)
[2025-04-24] MEDS: DOCUSATE SOD 100 MG CAP PO PRN (05:21)
[2025-04-24] MEDS: PRENATAL VITAMIN TAB PO SCH (09:18)
--- NOTE | 2025-04-24 11:56 | DVHPN2 ---
Subjective The patient is seen and examined at bedside. The patient complained of abdominal pain. Reviewed: Care Plan, H&P, Labs, Medications, Previous Orders Changes from previous H/P or p: No Changes Objective Vitals Vital Signs Date Time Temp Pulse Resp B/P (MAP) Pulse Ox O2 Delivery O2 Flow Rate FiO2 04/24/25 08:41 98.3 19 93 116/73 (87) 95 98.3 04/24/25 08:00 Room Air* 0 21 Intake/Output Intake and Output 04/24/25 06:59 Intake Total 0 ml Balance 0 ml Intake Oral 0 ml General Appearance: Alert, No acute distress HEENT: Atraumatic, PERRLA, EOMI, Mucous membr. moist/pink Neck: Supple Lungs: Clear to auscultation, Normal air movement Cardiovascular: Regular rate, Normal S1, Normal S2, No murmurs, Gallops, Rubs Abdomen: Normal bowel sounds, Other (Ascites, distended) Neuro: Cranial nerves 3-12 NL Psych/Mental Status: Mental status NL Medications Current Medications Medications Dose Ordered Sig/Dom Route Start Time Stop Time Status Last Admin Dose Admin Prenat Multivit/ [place]/Iron/Folic Ac 1 DAILY PO 04/24/25 10:00 04/24/25 09:18 1 Furosemide 40 mg BIDD IV 04/24/25 06:00 04/24/25 05:21 40 MG Ceftriaxone Sodium 50 ml @ 100 mls/hr DAILY@09 IV 04/24/25 09:00 04/24/25 09:17 100 MLS/HR Sodium Chloride 10 ml Q8HR IV 04/23/25 22:00 04/24/25 05:38 10 ML Docusate Sodium 100 mg BIDPRN PRN PO 04/23/25 19:15 04/24/25 05:21 100 MG Acetaminophen 650 mg Q6HP PRN PO 04/23/25 19:15 Acetaminophen/ Hydrocodone Bitart 1 tab Q4HP PRN PO 04/23/25 19:15 04/24/25 04:51 1 TAB Ondansetron HCl 4 mg Q4HP PRN IV 04/23/25 19:15 Diphenhydramine HCl 25 mg Q4HP PRN IV 04/24/25 05:15 04/24/25 09:39 25 MG Laboratory Results Laboratory Tests 04/24/25 04:07 Chemistry Test 04/23/25 13:57 04/24/25 04:07 Albumin 2.4 g/dL (3.2-4.8) L 2.1 g/dL (3.2-4.8) L Calcium Level 7.8 mg/dL (8.7-10.4) L 7.7 mg/dL (8.7-10.4) L Total Protein 7.7 g/dL (5.7-8.2) 6.9 g/dL (5.7-8.2) Coagulation Test 04/23/25 13:57 Prothrombin Time 11.9 sec (9.3-11.8) H Prothrombin Time INR 1.14 (0.9-1.15) Activated Partial Thromboplast Time 29.0 SEC (24.5-34.5) LFT Test 04/23/25 13:57 04/24/25 04:07 Alanine Aminotransferase (ALT) 24 U/L (7-40) 21 U/L (7-40) Alkaline Phosphatase 190 U/L (46-116) H 154 U/L (46-116) H Aspartate Amino Transferase (AST) 73 U/L (13-40) H 63 U/L (13-40) H Total Bilirubin 1.0 mg/dL (0.2-1.0) 0.9 mg/dL (0.2-1.0) Labs and/or images reviewed: Labs reviewed by me Assessment/Plan Assessment/Plan Liver cirrhosis alcoholic Ascites Liver nodules Spleen lesion Uterine lesion Paramedial hernia Nonobstructing renal calculus Plan IV Lasix 40 mg b.i.d. Potassium greater than four, magnesium greater than two MRI abdomen and pelvis to assess for spine lesion and liver lesion and uterine lesion Check AFP, CEA Alcohol cessation Daily weight Fluid restriction Consult Dr. Otto for paracentesis. This medical document was created using an electronic medical record system with [employer] direct computerized dictation system. Although this document has been carefully reviewed, there may still be some phonetic and typographical errors. These areas are purely typographical due to imperfections of the software programs, and do not reflect any compromise in the patient's medical care. Plan discussed with: Patient Date of Service: Apr 24, 2025 Billing Provider: EDDIE TO MD Common Visit Codes: [id number] INP/OBS CARE(HIGH) EDDIE TO MD Apr 24, 2025 11:56
--- NOTE | 2025-04-24 23:50 | DVHINCON2 ---
Date Seen: Apr 24, [address] Pennie Phelan Reason for Consultation Ascites History of Present Illness A 39-year-old woman with past medical history of liver cirrhosis and hypertension who presented to the ED on 04/23/25 with chief complaint of abdominal pain and distension. Patient stated that she has been experiencing abdominal pain with associated distension [id number]. Patient has received x2 paracenteses in the past with the most recent being 1 month ago. Patient denied nausea, vomiting, diarrhea, constipation, or fever. No other symptoms or modifying factors reported. Patient was admitted for further care. Pulmonary consultation is requested for evaluation and management due to ascites, for possible paracentesis. Review of Systems: 14-point review of systems negative unless otherwise noted above. Past Medical History: Liver cirrhosis and hypertension. Past Surgical History: Denies Medications: Reviewed. Allergies: No known drug allergies. Family History: No family history of premature CAD. No family history of lung disorders. Social History: Nonsmoker. No alcohol or illicit drug use. Family History: FH: CHF (congestive heart failure) G8 FATHER FH: heart attack G8 FATHER FH: prostate cancer G8 FATHER Hypertension G8 MOTHER Allergies: Coded Allergies: NO KNOWN ALLERGIES (Unverified , 11/27/17) Home Meds Active Scripts Sulfamethoxazole-Trimethoprim (Bactrim) 1 Tab Tab, 1 TAB PO BID for 5 Days, #10 TAB 0 Refills Prov:JUAN HAN 09/22/22 Reported Medications Vit W/ Ferrous Fumara ( One Daily) Daily Tab, 1 TAB PO DAILY, #90 TAB 3 Refills 04/01/19 Current Medications Current Medications Medications (Trade) Dose Ordered Sig/Dom Route PRN Reason Start Time Stop Time Status Last Admin Prenat Multivit/ [place]/Iron/Folic Ac (Prenavite Tablet) 1 DAILY PO 04/24/25 10:00 04/24/25 09:18 Furosemide (Lasix Injection) 40 mg BIDD IV 04/24/25 06:00 04/24/25 17:58 Ceftriaxone Sodium 50 ml @ 100 mls/hr DAILY@09 IV 04/24/25 09:00 04/24/25 09:17 Diphenhydramine HCl (Benadryl Injection) 25 mg Q4HP PRN IV FOR ITCHING 04/24/25 05:15 04/24/25 20:35 Vital Signs Vital Signs Date Time Temp Pulse Resp B/P (MAP) Pulse Ox O2 Delivery O2 Flow Rate FiO2 04/24/25 21:00 98.2 98 18 121/73 (89) 96 98.2 04/24/25 20:00 Room Air* 0 21 Physical Exam Gen.: Patient lying in bed in no apparent distress. Breathing on room air. Head: Normocephalic, atraumatic. Eyes: EOMI/PERRLA. Ears: Normal hearing. Normal anatomy. Neck/trachea: Trachea midline, supple. Nose: Normal external anatomy. Mouth: Moist mucous membranes. Chest: Decreased air entry bilaterally. No wheezing or rhonchi. Cardiovascular: Positive S1, positive S2. Regular rate and rhythm. Abdomen: Positive bowel sounds in all 4 quadrants. Soft, non-tender, non- distended. : Deferred. Rectal: Deferred. Skin: Warm, dry. Intact. Extremities: 2+ radial pulses bilaterally. No lower extremity edema. Neuro: Awake, alert, oriented x3. No gross motor or sensory deficits. Cranial nerves II through XII intact. Gait not assessed. Labs/Diagnostic Data Labs Test 04/24/25 04:07 04/23/25 17:06 04/23/25 13:57 Range/Units White Blood Count 2.9 L 4.4-10.8 10^3/uL Red Blood Count 2.85 L 4.0-5.20 10^6/uL Hemoglobin 7.7 L 12.2-16.2 g/dL Hematocrit 22.8 #L 36.0-46.0 % Mean Corpuscular Volume 80.1 # 80.0-100.0 fL Mean Corpuscular Hemoglobin 27.0 L 28.0-32.0 pg Mean Corpuscular Hemoglobin Concent 33.7 32.0-36.0 g/dL Red Cell Distribution Width 24.6 H 11.8-14.3 % Platelet Count 101 L 140-450 10^3/uL Mean Platelet Volume 8.3 6.9-10.8 fL Neutrophils (%) (Auto) 57.0 37.0-80.0 % Lymphocytes (%) (Auto) 32.3 10.0-50.0 % Monocytes (%) (Auto) 6.4 0.0-12.0 % Eosinophils (%) (Auto) 3.5 0.0-7.0 % Basophils (%) (Auto) 0.8 0.0-2.0 % Neutrophils # (Auto) 1.6 1.6-8.6 10 ^3/uL Lymphocytes # (Auto) 0.9 0.4-5.4 10 ^3/uL Monocytes # (Auto) 0.2 0-1.3 10 ^3/uL Eosinophils # (Auto) 0.1 0-0.8 10 ^3/uL Basophils # (Auto) 0 0-0.2 10 ^3/uL Nucleated Red Blood Cells 0.2 % Sodium Level 135 L 136-145 mmol/L Potassium Level 4.1 3.5-5.1 mmol/L Chloride Level 106 98-107 mmol/L Carbon Dioxide Level 21 20-31 mmol/L Anion Gap 8 5-15 Blood Urea Nitrogen 11 9-23 mg/dL Creatinine 0.51 L 0.550-1.02 mg/dL Glomerular Filtration Rate Calc 120 >90 mL/min BUN/Creatinine Ratio 21.6 H 10.0-20.0 Serum Glucose 75 74-106 mg/dL Calcium Level 7.7 L 8.7-10.4 mg/dL Total Bilirubin 0.9 0.2-1.0 mg/dL Aspartate Amino Transferase (AST) 63 H 13-40 U/L Alanine Aminotransferase (ALT) 21 7-40 U/L Alkaline Phosphatase 154 H 46-116 U/L Total Protein 6.9 5.7-8.2 g/dL Albumin 2.1 L 3.2-4.8 g/dL Lactic Acid Level 1.4 0.4-2.0 mmol/L Erythrocyte Sedimentation Rate 101 H 0-20 mm/hr Prothrombin Time 11.9 H 9.3-11.8 sec Prothrombin Time INR 1.14 0.9-1.15 Activated Partial Thromboplast Time 29.0 24.5-34.5 SEC Ammonia < 10 L 11-32 umol/L Carcinoembryonic Antigen < 0.50 <=5.0 ng/mL Microbiology Date/Time Source Procedure Growth Status 04/23/25 17:06 Blood Blood Culture - Preliminary NO GROWTH AFTER 24 HOURS OF INCUBATION. Resulted Assessment Impression: Liver cirrhosis Ascites Liver nodules Nephrolithiasis Plan: On room air Supplemental oxygen PRN. Titrate to keep O2 sats above 92%. Continue antibiotics Plan for limited abdominal ultrasound to assess for amenability for paracentesis. Diurese with Lasix as tolerated Follow up Nephrology recommendations Monitor renal function. Monitor electrolytes. Supplement as necessary. Monitor ins and outs. Pain control Avoid oversedation DVT prophylaxis. Prognosis: Poor given patient's multiple co-morbidities. Rest of plan per hospitalist and other consultants. Thank you, Dr. Phelan, for allowing me to participate in this patient's care. Further recommendations will depend on the patient's clinical course. Please do not hesitate to contact me if you have any questions or concerns. This medical document was created using an electronic medical record system with [employer] dictation system. Although these documentations are being carefully reviewed, there may still be some phonetic and typographical changes. The errors are purely typographical, due to imperfection on the software program, and do not reflect any compromise in the patient's medical care. Plan discussed with: Patient, Other (RN/Dr. Phelan) Date of Service: Apr 24, 2025 Billing Provider: KARIS FUNES MD Common Visit Codes: [id number] INP/OBS CARE (HIGH) KARIS FUNES MD Apr 24, 2025 23:50
[2025-04-25] VITALS (8 sets, daily range): BP systolic 106–127; BP diastolic 70–76; PULSE 89–101; RESP 16–18; TEMP 98.1–98.7; O2SAT 93–100
[2025-04-25 07:47] LABS: Hemoglobin 7.4 g/dL (12.2-16.2)
[2025-04-25 07:51] LABS: Hematocrit 21.7 % (36.0-46.0); Mean Corpuscular Hemoglobin 26.7 pg (28.0-32.0); Mean Corpuscular Volume 78.5 fL (80.0-100.0); Nucleated Red Blood Cells % 0.6 %
[2025-04-25 08:10] LABS: Alanine Aminotransferase 18 U/L (7-40); Anion Gap 8 (5-15); BUN/Creatinine Ratio 29.5 (10.0-20.0); Blood Urea Nitrogen 13 mg/dL (9-23); Carbon Dioxide 23 mmol/L (20-31); Chloride 105 mmol/L (98-107); Glucose 81 mg/dL (74-106); Potassium 4.0 mmol/L (3.5-5.1); Sodium 136 mmol/L (136-145); Total Protein 6.7 g/dL (5.7-8.2)
[2025-04-25 08:11] LABS: Bilirubin, Total 0.6 mg/dL (0.2-1.0)
[2025-04-25 08:14] LABS: Albumin 2.0 g/dL (3.2-4.8); Alkaline Phosphatase 158 U/L (46-116); Calcium 7.6 mg/dL (8.7-10.4)
[2025-04-25 09:27] LABS: Anisocytosis Slight
[2025-04-25 09:28] LABS: Ovalocytes FEW
[2025-04-25] MEDS ORDERED: GADOTERATE MEG 10 MMOL/20ml INJ (0.5MMOL/ml) IV ONE (14:19)
--- NOTE | 2025-04-25 14:21 | DVHPN2 ---
Subjective The patient is seen and examined at bedside. The patient complained of abdominal pain. Reviewed: Care Plan, H&P, Labs, Medications, Previous Orders Changes from previous H/P or p: No Changes Objective Vitals Vital Signs Date Time Temp Pulse Resp B/P (MAP) Pulse Ox O2 Delivery O2 Flow Rate FiO2 04/25/25 13:00 98.6 91 16 116/76 (89) 93 98.6 04/25/25 08:00 Room Air* 0 21 Intake/Output Intake and Output 04/25/25 07:00 Intake Total 1464 ml Balance 1464 ml Intake Oral 1464 ml # Voids 10 General Appearance: Alert, No acute distress HEENT: Atraumatic, PERRLA, EOMI, Mucous membr. moist/pink Neck: Supple Lungs: Clear to auscultation, Normal air movement Cardiovascular: Regular rate, Normal S1, Normal S2, No murmurs, Gallops, Rubs Abdomen: Normal bowel sounds, Other (Ascites, distended) Neuro: Cranial nerves 3-12 NL Psych/Mental Status: Mental status NL Medications Current Medications Medications Dose Ordered Sig/Dom Route Start Time Stop Time Status Last Admin Dose Admin Prenat Multivit/ [place]/Iron/Folic Ac 1 DAILY PO 04/24/25 10:00 04/25/25 08:42 1 Furosemide 40 mg BIDD IV 04/24/25 06:00 04/24/25 17:58 40 MG Ceftriaxone Sodium 50 ml @ 100 mls/hr DAILY@09 IV 04/24/25 09:00 04/25/25 08:42 100 MLS/HR Sodium Chloride 10 ml Q8HR IV 04/23/25 22:00 04/25/25 06:00 10 ML Docusate Sodium 100 mg BIDPRN PRN PO 04/23/25 19:15 04/24/25 18:38 100 MG Acetaminophen 650 mg Q6HP PRN PO 04/23/25 19:15 Acetaminophen/ Hydrocodone Bitart 1 tab Q4HP PRN PO 04/23/25 19:15 04/25/25 03:52 1 TAB Ondansetron HCl 4 mg Q4HP PRN IV 04/23/25 19:15 Diphenhydramine HCl 25 mg Q4HP PRN IV 04/24/25 05:15 04/25/25 08:42 25 MG Laboratory Results Laboratory Tests 04/25/25 05:27 Chemistry Test 04/25/25 05:27 Albumin 2.0 g/dL (3.2-4.8) L Calcium Level 7.6 mg/dL (8.7-10.4) L Total Protein 6.7 g/dL (5.7-8.2) LFT Test 04/25/25 05:27 Alanine Aminotransferase (ALT) 18 U/L (7-40) Alkaline Phosphatase 158 U/L (46-116) H Aspartate Amino Transferase (AST) 51 U/L (13-40) H Total Bilirubin 0.6 mg/dL (0.2-1.0) Microbiology Microbiology Date/Time Source Procedure Growth Status 04/23/25 17:06 Blood Blood Culture - Preliminary NO GROWTH AFTER 24 HOURS OF INCUBATION. Resulted Assessment/Plan Assessment/Plan Liver cirrhosis alcoholic Ascites Liver nodules Spleen lesion Uterine lesion Paramedial hernia Nonobstructing renal calculus Uterus lesion Plan IV Lasix 40 mg b.i.d. Potassium greater than four, magnesium greater than two Still waiting for MRI abdomen and pelvis to assess for spine lesion and liver lesion and uterine lesion Check AFP, CEA Alcohol cessation Daily weight Fluid restriction Consult Dr. Otto for thoracocentesis. will order US pelvis to further study of the uterus lesion. Will order US guide paracentesis if lots of ascites fluid This medical document was created using an electronic medical record system with [employer] direct computerized dictation system. Although this document has been carefully reviewed, there may still be some phonetic and typographical errors. These areas are purely typographical due to imperfections of the software programs, and do not reflect any compromise in the patient's medical care. Plan discussed with: Patient My Orders Orders - EDDIE TO MD Procedure Category Date Status Time Pelvic US 04/25/25 Verified 14:20 Date of Service: Apr 25, 2025 Billing Provider: EDDIE TO MD Common Visit Codes: [id number] INP/OBS CARE(HIGH) EDDIE TO MD Apr 25, 2025 14:21
[2025-04-25 14:57] LABS: Alanine Aminotransferase 21.0 U/L (7-40); Bilirubin, Total 0.5 mg/dL (0.2-1.0); Total Protein 6.4 g/dL (5.7-8.2)
[2025-04-25 15:04] LABS: Albumin 1.9 g/dL (3.2-4.8); Alkaline Phosphatase 160.0 U/L (46-116); Bilirubin, Direct 0.3 mg/dL (<0.3)
--- NOTE | 2025-04-25 16:09 | DVH ---
PROCEDURE: MRI MRI ABD PLEVIS W/WO CONT Indication: Evaluation COMPARISON: 04/23/2025 TECHNIQUE: Multiplanar multisequence images of the abdomen pelvis were obtained with and without cont rast. FINDINGS: Adrenal glands unremarkable. Spleen is enlarged measuring 15.4 cm AP. Small bilateral pleural effusions, [id number]. Left axillary nodes measuring up to 11 mm right axillary lymph nodes measuring up to 18 mm No evidence for cholelithiasis. No T2 hyperintense lesions in the liver. Left hepatic lobe portosystemic shunt measuring 1.9 cm betwe en the left portal vein in the left hepatic vein. No other enhancing lesion seen within the liver. Li jackson is enlarged measuring 19 cm craniocaudal. No hydronephrosis. Stomach is relatively nondistended. Small bowel wall edema. Cirrhotic morphology liver. Cervical nabothian cysts measures 15 mm. Other smaller nabothian cysts are noted. Retroperitoneal lymph nodes measuring up to 17 mm. Large volume ascites fluid. Paraumbilical hernia measuring 5.7 x 3.6 cm. IMPRESSION: Cirrhotic morphology liver with sequela of portal hypertension including hepatosplenomegaly, large vo lume ascites fluid. Left hepatic lobe portosystemic shunt measuring up to 1.9 cm in diameter. Small bowel wall edema which can be secondary to enteritis, inflammatory disease, portal hypertension . Small bilateral pleural effusions. Retroperitoneal lymphadenopathy. Axillary lymphadenopathy. Periumbilical hernia containing fat and fluid measuring 5.7 x 3.6 cm. Cervical nabothian cyst measuring 15 mm.
--- NOTE | 2025-04-25 16:45 | DVH ---
Technique: Real-time ultrasound images through the pelvis using a transabdominal transducer. Indication: uterus lesion Comparison: MRI abdomen/ pelvis from today. Findings: The uterus measures 7.7 cm. The endometrial stripe measures 6 mm. There are no focal masses. There is no abnormal flow in the endometrium. Cervical nabothian cyst measuring 2.2 cm. Right ovary measures 3 x 2 x 2.1 cm. Normal flow on color doppler images. No focal masses are identif ied. Left ovary measures 2.7 x 2.1 x 1.8 cm. Normal flow on color doppler images. No focal masses are nelda ntified. Large volume of ascites fluid extending to the pelvis. Impression: 2.2 cm cervical nabothian cysts. Large volume of ascites fluid.
--- NOTE | 2025-04-25 18:41 | DVHNC2 ---
Other Procedure Procedure Paracentesis Indication Ascites secondary to liver cirrhosis Anesthetic Lidocaine 1 % Informed consent obtained: Yes Risks, benefits, and alternati: Yes Notes Paracentesis Procedure Note INDICATION: Ascites secondary to liver cirrhosis PROCEDURE FOOD SANITARIAN: Dr Bolaños ATTENDING PHYSICIAN: Dr Otto Ultrasound used to [place] location: Y CONSENT: During the informed consent discussion regarding the procedure, or treatment, I explained the following to the patient a. Nature of the procedure or treatment and who will perform the procedure or treatment. b. Necessity for procedure and the possible benefits. c. Risks and complications (most common and serious). d. Alternative treatments and the risks, benefits and side effects of each (including no treatment). e. Likelihood of the patient achieving his/her goals without this procedure and surgery treatment. f. Problems that might occur during the recuperation. g. Conflicts of interest, if any PROCEDURE SUMMARY: A time-out was performed. My hands were washed immediately prior to the procedure. I wore a surgical cap, mask with protective eyewear, sterile gown and sterile gloves throughout the procedure. The area was cleansed and draped in usual sterile fashion using chlorhexidine scrub. Anesthesia was achieved with 1% lidocaine. The Rt of the abdomen was prepped and draped in a sterile fashion using chlorhexidine scrub. 1% lidocaine was used to numb the skin, soft tissue and peritoneum. The paracentesis catheter was inserted and advanced with negative pressure until straw colored fluid was aspirated. Approximately 60 mL of ascitic fluid was collected and sent for laboratory analysis. The catheter was then connected to the vaccutainer and 3.1L liters of additional ascitic fluid were drained. The catheter was removed and no leaking was noted. A bandaid was placed over the puncture wound. The patient tolerated the procedure well without any immediate complications. Estimated blood loss was <1ml. Date of Service: Apr 25, 2025 Billing Provider: KARIS OTTO MD Common Visit Codes: PROCEDURE ONLY VERONIQUE BOLAÑOS RESIDENT Apr 25, 2025 18:41
--- NOTE | 2025-04-25 19:58 | DVHPN2 ---
Subjective DOS: 04/25/2025 Patient seen and examined at bedside. Breathing comfortably on room air. Overnight events reviewed. Reviewed: Care Plan, H&P, Labs, Medications, Previous Orders Changes from previous H/P or p: No Changes Objective Vitals Vital Signs Date Time Temp Pulse Resp B/P (MAP) Pulse Ox O2 Delivery O2 Flow Rate FiO2 04/25/25 18:00 127/72 04/25/25 17:00 98.6 89 18 100 98.6 04/25/25 08:00 Room Air* 0 21 Intake/Output Intake and Output 04/25/25 07:00 Intake Total 1464 ml Balance 1464 ml Intake Oral 1464 ml # Voids 10 General Appearance: Alert, No acute distress HEENT: Atraumatic, PERRLA, EOMI, Mucous membr. moist/pink Neck: Supple Lungs: Clear to auscultation, Normal air movement Cardiovascular: Regular rate, Normal S1, Normal S2, No murmurs, Gallops, Rubs Abdomen: Normal bowel sounds, Other (Ascites, distended) Neuro: Cranial nerves 3-12 NL Psych/Mental Status: Mental status NL Medications Current Medications Medications Dose Ordered Sig/Dom Route Start Time Stop Time Status Last Admin Dose Admin Prenat Multivit/ [place]/Iron/Folic Ac 1 DAILY PO 04/24/25 10:00 04/25/25 08:42 1 Furosemide 40 mg BIDD IV 04/24/25 06:00 04/25/25 18:00 40 MG Ceftriaxone Sodium 50 ml @ 100 mls/hr DAILY@09 IV 04/24/25 09:00 04/25/25 08:42 100 MLS/HR Sodium Chloride 10 ml Q8HR IV 04/23/25 22:00 04/25/25 14:00 10 ML Docusate Sodium 100 mg BIDPRN PRN PO 04/23/25 19:15 04/24/25 18:38 100 MG Acetaminophen 650 mg Q6HP PRN PO 04/23/25 19:15 Acetaminophen/ Hydrocodone Bitart 1 tab Q4HP PRN PO 04/23/25 19:15 04/25/25 03:52 1 TAB Ondansetron HCl 4 mg Q4HP PRN IV 04/23/25 19:15 Diphenhydramine HCl 25 mg Q4HP PRN IV 04/24/25 05:15 04/25/25 08:42 25 MG Laboratory Results Laboratory Tests 04/25/25 05:27 Chemistry Test 04/25/25 05:27 Albumin 1.9 g/dL (3.2-4.8) L Calcium Level 7.6 mg/dL (8.7-10.4) L Total Protein 6.4 g/dL (5.7-8.2) LFT Test 04/25/25 05:27 Alanine Aminotransferase (ALT) 21 U/L (7-40) Alkaline Phosphatase 160 U/L (46-116) H Aspartate Amino Transferase (AST) 53 U/L (13-40) H Direct Bilirubin 0.3 mg/dL (<0.3) Total Bilirubin 0.5 mg/dL (0.2-1.0) Microbiology Microbiology Date/Time Source Procedure Growth Status 04/23/25 17:06 Blood Blood Culture - Preliminary NO GROWTH AFTER 48 HOURS OF INCUBATION. Resulted Assessment/Plan Assessment/Plan Impression: Liver cirrhosis Ascites Liver nodules Nephrolithiasis Events: Breathing on room air Supplemental oxygen PRN Patient is s/p paracentesis today - drained 3.1 liters of ascitic fluid Improved symptoms, breathing comfortably. Follow up ascitic fluid cultures Continue antibiotics Continue diuresis with Lasix Monitor renal function. Monitor electrolytes. Supplement as necessary Labs and imaging reviewed. Rest of plan as noted below. Plan: Supplemental oxygen PRN. Titrate to keep O2 sats above 92%. Continue antibiotics Diurese with Lasix as tolerated Follow up Nephrology recommendations Monitor renal function. Monitor electrolytes. Supplement as necessary. Monitor ins and outs. Pain control Avoid oversedation DVT prophylaxis. Prognosis: Poor given patient's multiple co-morbidities. Rest of plan per hospitalist and other consultants. Thank you, Dr. Phelan, for allowing me to participate in this patient's care. Further recommendations will depend on the patient's clinical course. Please do not hesitate to contact me if you have any questions or concerns. This medical document was created using an electronic medical record system with [employer] system. Although these documentations are being carefully reviewed, there may still be some phonetic and typographical changes. The errors are purely typographical, due to imperfection on the software program, and do not reflect any compromise in the patient's medical care. Plan discussed with: Patient, Other (RN) My Orders Orders - KARIS FUNES MD Procedure Category Date Status Time Obtain Consent For: ORDERS 04/25/25 Transmitted 16:58 Obtain Consent For JONATHAN 04/25/25 In Process Anesthesia 16:58 Body Fluid Culture W/ KINJAL 04/25/25 Logged GS 19:55 Body Fluid Ph LAB 04/25/25 Logged 19:55 Body Fluids, Diff. LAB 04/25/25 Logged Cell Count 19:55 Glucose Body Fluid LAB 04/25/25 Logged 19:55 Protein, Body Fluid LAB 04/25/25 Logged 19:55 Albumin; Body Fluid LAB 04/25/25 Logged 19:55 Date of Service: Apr 25, 2025 Billing Provider: KARIS FUNES MD Common Visit Codes: [id number] INP/OBS CARE(HIGH) Procedure Codes: [id number] W/IMAGING KARIS FUNES MD Apr 25, 2025 19:58
[2025-04-26 01:00] VITALS: BP 114/75; PULSE 101; RESP 16; TEMP 98.6; O2SAT 96
[2025-04-26 05:00] VITALS: BP 105/69; PULSE 86; RESP 17; TEMP 98.3; O2SAT 96
[2025-04-26 05:38] LABS: Hemoglobin 7.6 g/dL (12.2-16.2); Mean Corpuscular Hemoglobin 27.0 pg (28.0-32.0)
[2025-04-26 05:41] LABS: Hematocrit 22.3 % (36.0-46.0); Mean Corpuscular Volume 78.9 fL (80.0-100.0); Nucleated Red Blood Cells % 0.4 %
[2025-04-26 05:50] LABS: Alanine Aminotransferase 19 U/L (7-40); Anion Gap 8 (5-15); BUN/Creatinine Ratio 27.1 (10.0-20.0); Bilirubin, Total 0.5 mg/dL (0.2-1.0); Blood Urea Nitrogen 13 mg/dL (9-23); Carbon Dioxide 24 mmol/L (20-31); Chloride 106 mmol/L (98-107); Glucose 84 mg/dL (74-106); Potassium 3.8 mmol/L (3.5-5.1); Sodium 138 mmol/L (136-145); Total Protein 6.6 g/dL (5.7-8.2)
[2025-04-26 05:52] LABS: Albumin 2.0 g/dL (3.2-4.8); Alkaline Phosphatase 164 U/L (46-116); Calcium 7.7 mg/dL (8.7-10.4)
[2025-04-26 09:00] VITALS: BP 103/65; PULSE 90; RESP 19; TEMP 98.2; O2SAT 97
--- NOTE | 2025-04-26 12:11 | DVHPN2 ---
Subjective The patient is seen and examined at bedside. The patient complained of abdominal pain. Reviewed: Care Plan, H&P, Labs, Medications, Previous Orders Objective Vitals Vital Signs Date Time Temp Pulse Resp B/P (MAP) Pulse Ox O2 Delivery O2 Flow Rate FiO2 04/26/25 09:00 98.2 90 19 103/65 (78) 97 98.2 04/26/25 08:05 Room Air* 0 21 Intake/Output Intake and Output 04/26/25 07:00 Intake Total 1325 ml Balance 1325 ml Intake Oral 1275 ml IV Total 50 ml # Voids 9 General Appearance: Alert, No acute distress HEENT: Atraumatic, PERRLA, EOMI, Mucous membr. moist/pink Neck: Supple Lungs: Clear to auscultation, Normal air movement Cardiovascular: Regular rate, Normal S1, Normal S2, No murmurs, Gallops, Rubs Abdomen: Normal bowel sounds, Other (Ascites, distended) Neuro: Cranial nerves 3-12 NL Psych/Mental Status: Mental status NL Medications Current Medications Medications Dose Ordered Sig/Dom Route Start Time Stop Time Status Last Admin Dose Admin Prenat Multivit/ [place]/Iron/Folic Ac 1 DAILY PO 04/24/25 10:00 04/26/25 09:50 1 Furosemide 40 mg BIDD IV 04/24/25 06:00 04/26/25 05:17 40 MG Ceftriaxone Sodium 50 ml @ 100 mls/hr DAILY@09 IV 04/24/25 09:00 04/26/25 09:51 100 MLS/HR Sodium Chloride 10 ml Q8HR IV 04/23/25 22:00 04/26/25 05:16 10 ML Docusate Sodium 100 mg BIDPRN PRN PO 04/23/25 19:15 04/24/25 18:38 100 MG Acetaminophen 650 mg Q6HP PRN PO 04/23/25 19:15 Acetaminophen/ Hydrocodone Bitart 1 tab Q4HP PRN PO 04/23/25 19:15 04/26/25 05:16 1 TAB Ondansetron HCl 4 mg Q4HP PRN IV 04/23/25 19:15 Diphenhydramine HCl 25 mg Q4HP PRN IV 04/24/25 05:15 04/26/25 09:59 25 MG Laboratory Results Laboratory Tests 04/26/25 05:02 Chemistry Test 04/26/25 05:02 Albumin 2.0 g/dL (3.2-4.8) L Calcium Level 7.7 mg/dL (8.7-10.4) L Total Protein 6.6 g/dL (5.7-8.2) LFT Test 04/26/25 05:02 Alanine Aminotransferase (ALT) 19 U/L (7-40) Alkaline Phosphatase 164 U/L (46-116) H Aspartate Amino Transferase (AST) 59 U/L (13-40) H Total Bilirubin 0.5 mg/dL (0.2-1.0) Microbiology Microbiology Date/Time Source Procedure Growth Status 04/25/25 19:08 Peritoneal Fluid Gram Stain Pending Resulted 04/25/25 19:08 Peritoneal Fluid Body Fluid Culture - Preliminary Resulted 04/23/25 17:06 Blood Blood Culture - Preliminary NO GROWTH AFTER 48 HOURS OF INCUBATION. Resulted Assessment/Plan Assessment/Plan Liver cirrhosis alcoholic Ascites Liver nodules Spleen lesion Uterine lesion Paramedial hernia Nonobstructing renal calculus Uterus lesion Plan IV Lasix 40 mg b.i.d. Potassium greater than four, magnesium greater than two Still waiting for MRI abdomen and pelvis to assess for spine lesion and liver lesion and uterine lesion Check AFP, CEA Alcohol cessation Daily weight Fluid restriction Consult Dr. Otto for thoracocentesis. will order US pelvis to further study of the uterus lesion. Will order US guide paracentesis if lots of ascites fluid This medical document was created using an electronic medical record system with [employer] direct computerized dictation system. Although this document has been carefully reviewed, there may still be some phonetic and typographical errors. These areas are purely typographical due to imperfections of the software programs, and do not reflect any compromise in the patient's medical care. My Orders Orders - EDDIE TO MD Procedure Category Date Status Time Pelvic US 04/25/25 Resulted 14:20 Comprehensive LAB 04/25/25 In Process Hepatitis Panel 14:31 EDDIE TO MD Apr 26, 2025 12:11
[2025-04-26 13:00] VITALS: BP 112/74; PULSE 95; RESP 19; TEMP 98.3; O2SAT 96
[2025-04-26 13:44] VITALS: BP 105/69
--- NOTE | 2025-04-26 14:20 | DVH ---
Left lower extremity venous duplex Clinical History: R/O DVT Comparison: US PELVIC on DOS: 04/25/25, MRI MRI ABD PLEVIS W/WO CONT on DOS: 04/25/25, CT CT AB PEL W ITH IV CON ONLY on DOS: 04/23/25, CT ABD/PEL on DOS: 03/30/25, CT ABD/PEL W - IV on DOS: 03/20/25 Findings: Duplex Doppler evaluation of the deep venous system of the left lower extremity from the common femor al vein to the popliteal vein including color Doppler and spectral/pulsed waveform analysis was perfo rmed. The common femoral vein demonstrates appropriate compressibility and waveform variability. There is compressibility/patency of the great saphenous vein at the proximal thigh. The femoral vein demonstrates appropriate compressibility and waveform variability. The deep femoral vein demonstrates appropriate compressibility and waveform variability. The popliteal vein demonstrates appropriate compressibility and waveform variability. There is normal compressibility at the tibioperoneal trunk. Incidental note is made of a 3 cm left groin lymph node. Impression: 1. No left femoropopliteal venous thrombosis. 2. If clinical concern/symptoms persist or worsen, short-interval follow-up study is suggested.
--- NOTE | 2025-04-27 01:17 | DVHDS2 ---
Discharge Summary Date of Admission Apr 23, 2025 at 19:10 Date of Discharge: Apr 26, 2025 Admitting Diagnosis Liver cirrhosis alcoholic Ascites Liver nodules Spleen lesion Uterine lesion Paramedial hernia Nonobstructing renal calculus Labs/Diagnostic Data: Laboratory Results Test 04/26/25 05:02 04/25/25 19:08 04/25/25 05:27 04/23/25 17:06 White Blood Count 3.3 10^3/uL (4.4-10.8) Red Blood Count 2.82 10^6/uL (4.0-5.20) Hemoglobin 7.6 g/dL (12.2-16.2) Hematocrit 22.3 % (36.0-46.0) Mean Corpuscular Volume 78.9 fL (80.0-100.0) Mean Corpuscular Hemoglobin 27.0 pg (28.0-32.0) Mean Corpuscular Hemoglobin Concent 34.3 g/dL (32.0-36.0) Red Cell Distribution Width 25.1 % (11.8-14.3) Platelet Count 94 10^3/uL (140-450) Mean Platelet Volume 8.5 fL (6.9-10.8) Neutrophils (%) (Auto) 60.4 % (37.0-80.0) Lymphocytes (%) (Auto) 31.8 % (10.0-50.0) Monocytes (%) (Auto) 4.6 % (0.0-12.0) Eosinophils (%) (Auto) 2.3 % (0.0-7.0) Basophils (%) (Auto) 0.9 % (0.0-2.0) Neutrophils # (Auto) 2.0 10 ^3/uL (1.6-8.6) Lymphocytes # (Auto) 1.0 10 ^3/uL (0.4-5.4) Monocytes # (Auto) 0.2 10 ^3/uL (0-1.3) Eosinophils # (Auto) 0.1 10 ^3/uL (0-0.8) Basophils # (Auto) 0 10 ^3/uL (0-0.2) Nucleated Red Blood Cells 0.4 % Sodium Level 138 mmol/L (136-145) Potassium Level 3.8 mmol/L (3.5-5.1) Chloride Level 106 mmol/L (98-107) Carbon Dioxide Level 24 mmol/L (20-31) Anion Gap 8 (5-15) Blood Urea Nitrogen 13 mg/dL (9-23) Creatinine 0.48 mg/dL (0.550-1.02) Glomerular Filtration Rate Calc 122 mL/min (>90) BUN/Creatinine Ratio 27.1 (10.0-20.0) Serum Glucose 84 mg/dL (74-106) Calcium Level 7.7 mg/dL (8.7-10.4) Total Bilirubin 0.5 mg/dL (0.2-1.0) Aspartate Amino Transferase (AST) 59 U/L (13-40) Alanine Aminotransferase (ALT) 19 U/L (7-40) Alkaline Phosphatase 164 U/L (46-116) Total Protein 6.6 g/dL (5.7-8.2) Albumin 2.0 g/dL (3.2-4.8) Body Fluid Source Peritoneal fluid Body Fluid pH 8.0 Body Fluid WBC (Manual) 142 CUMM (0-200) Body Fluid RBC (Manual) 152 CUMM (0-2000) Body Fluid Mononuclear Cells 95 % Body Fluid Polymorphonuclear Cells 5 % (0-25) Platelet Estimate Decreased Anisocytosis (manual) Slight Microcytosis Slight Ovalocytes Few Oj Cells Direct Bilirubin 0.3 mg/dL (<0.3) Lactic Acid Level 1.4 mmol/L (0.4-2.0) Test 04/23/25 13:57 Erythrocyte Sedimentation Rate 101 mm/hr (0-20) Prothrombin Time 11.9 sec (9.3-11.8) Prothrombin Time INR 1.14 (0.9-1.15) Activated Partial Thromboplast Time 29.0 SEC (24.5-34.5) Ammonia < 10 umol/L (11-32) Tumor Marker Alpha Fetoprotein 3.9 ng/mL (0.0-6.4) Carcinoembryonic Antigen < 0.50 ng/mL (<=5.0) Other Laboratory Tests 04/26/25 05:02 Brief Hx & Hospital Course: This is a 39 years old female with past medical history of liver cirrhosis come to emergency department with chief complaint of severe abdominal pain and distention. The patient stated that she had experience abdominal pain associated with distention for one month. She reports that she received two paracentesis. The most recent one was one month ago. Patient denied any nausea, vomiting, diarrhea, constipation. The patient was admitted. Paracentesis was done yesterday. 3.1 L of peritoneal fluid removed. CT abdomen and pelvis showed: Cirrhotic morphology liver with Massive splenomegaly.Volume ascites fluid.Splenic hypodense lesions up to 3 cm could represent infarcts. Recommend multiphasic MRI abdomen with and without contrast to further evaluate. 2.2 cm left hepatic lobe hypervascular lesion. Recommend multiphasic MRI abdomen with and without contrast to evaluate. Considerations including hepatic mass/neoplasm, portosystemic shunt. Numerous hepatic hypodensities, possibly regenerative nodules. Recommend correlation with alpha fetoprotein levels to exclude diffuse HCC. Multiphasic MRI abdomen with and without contrast can also be obtained to further evaluate. Paraumbilical hernia containing ascites fluid and fat measuring 4.9 cm. Mesenteric, retroperitoneal lymphadenopathy. Small right pleural effusion. Nonobstructing left renal calculi. 1.4 cm uterine hypodense lesion which can be further characterized with pelvic ultrasound. Subsequently, she has a pelvic US done, which showed: 2.2 cm cervical nabothian cysts. Large volume of ascites fluid. The patient subsequently had MRI of abdomen pelvis done which showed Cirrhotic morphology liver with sequela of portal hypertension including hepatosplenomegaly, large volume ascites fluid.Left hepatic lobe portosystemic shunt measuring up to 1.9 cm in diameter. No T2 hyperintense lesions in the liver. Left hepatic lobe portosystemic shunt measuring 1.9 cm between the left portal vein in the left hepatic vein. No other enhancing lesion seen within the liver. Liver is enlarged measuring 19 cm craniocaudal. Small bowel wall edema which can be secondary to enteritis, inflammatory disease, portal hypertension.Small bilateral pleural effusions.Retroperitoneal lymphadenopathy.Axillary lymphadenopathy.Periumbilical hernia containing fat and fluid measuring 5.7 x 3.6 cm. Cervical nabothian cyst measuring 15 mm. The patient doing better today. Less abdominal pain. Advised the patient to follow up with primary care physician 1- 2 weeks. The patient may need the repeat MRI of abdomen with and without contrast in within six months to one year to re-evaluate lymphadenopathy. The patient verbally understand and she will discussed the matter with her primary care physician. Follow up with primary care physician 1-2 weeks. Activity as tolerated. Diet low protein low-salt diet. Paracentesis PRN when patient had ascites. Physical exam: HEENT: Normocephalic atraumatic pupils equal react to light and accommodation. Extraocular muscles intact, conjunctiva pink, oropharynx moist, no thrush, no exudate. Lymphatic: No lymphadenopathy Cardiovascular exam: S1, S2 was heard. No murmurs, rubs, gallops Lung: Clear on auscultation bilaterally, no wheeze, rale, rhonchi. GI: Abdominal soft, nondistended, nontenderness, positive bowel sounds. Extremity: No crepitus, cyanosis, edema. Pedal pulses present bilateral. Full range of motion. Skin: Normal turgor, no rash. Psych: Alert, oriented x3. Neurology: No focal deficits, cranial nerve II to XII grossly intact. This medical document was created using an electronic medical record system with [employer] direct computerized dictation system. Although this document has been carefully reviewed, there may still be some phonetic and typographical errors. These areas are purely typographical due to imperfections of the software programs, and do not reflect any compromise in the patient's medical care. Condition at Discharge: Stable Final Diagnosis/Problems List Liver cirrhosis alcoholic Ascites Liver nodules Spleen lesion Uterine lesion Paramedial hernia Nonobstructing renal calculus Uterus lesion, ultrasound of pelvis showed :2.2 cm cervical nabothian cysts Discharge Disposition: Home Discharge Instruct/Medications Diet: Regular Activity: No Restrictions, As Tolerated Follow Up/Referral: pcp 1-2 weeks Medications: resume home meds Levaquin 500mg PO qday x 10 days Scheduled Vit W/ Ferrous Fumara ( One Daily), 1 TAB PO DAILY, (Reported) Sulfamethoxazole-Trimethoprim (Bactrim), 1 TAB PO BID Discharge Statement: "Patient was advised to return to the ER or call 911 if any headaches, dizziness, shortness of breath, chest pain, abdominal pain, bleeding, fevers, or worsening of medical condition. Patient was counseled about treatment plan, medications, possible side effects, patientverbalized understanding. All questions were answered to the best of my ability. This discharge took greater then 30 minutes in planning, reviewing documentation, counseling the patient, and discussing with other team members." ASSESSMENT ASSESSMENT Assessment ascites Date of Service: Apr 26, 2025 Billing Provider: EDDIE TO MD Common Visit Codes: [id number] DISCH DAY >30min EDDIE TO MD Apr 27, 2025 01:17
--- NOTE | 2025-04-27 08:20 | DVHPN2 ---
Subjective DOS: 04/26/2025 Patient seen and examined at bedside. Breathing comfortably on room air. Overnight events reviewed. Reviewed: Care Plan, H&P, Labs, Medications, Previous Orders Changes from previous H/P or p: No Changes Objective Vitals Vital Signs Date Time Temp Pulse Resp B/P (MAP) Pulse Ox O2 Delivery O2 Flow Rate FiO2 04/26/25 13:00 98.3 95 19 112/74 (87) 96 98.3 04/26/25 08:05 Room Air* 0 21 Intake/Output Intake and Output 04/27/25 07:00 Intake Total 100 ml Balance 100 ml IV Total 100 ml General Appearance: Alert, No acute distress HEENT: Atraumatic, PERRLA, EOMI, Mucous membr. moist/pink Neck: Supple Lungs: Clear to auscultation, Normal air movement Cardiovascular: Regular rate, Normal S1, Normal S2, No murmurs, Gallops, Rubs Abdomen: Normal bowel sounds, Other (Ascites, distended) Neuro: Cranial nerves 3-12 NL Psych/Mental Status: Mental status NL Laboratory Results Laboratory Tests 04/26/25 05:02 Microbiology Microbiology Date/Time Source Procedure Growth Status 04/25/25 19:08 Peritoneal Fluid Gram Stain - Final Resulted 04/25/25 19:08 Peritoneal Fluid Body Fluid Culture - Preliminary Resulted 04/23/25 17:06 Blood Blood Culture - Preliminary NO GROWTH AFTER 72 HOURS OF INCUBATION. Resulted Assessment/Plan Assessment/Plan Impression: Liver cirrhosis Ascites Liver nodules Nephrolithiasis Events: Breathing on room air Supplemental oxygen PRN Patient is s/p paracentesis on 04/25/25 - drained 3.1 liters of ascitic fluid Improved symptoms, breathing comfortably. Follow up ascitic fluid cultures Continue antibiotics Continue diuresis with Lasix Monitor renal function. Monitor electrolytes. Supplement as necessary Patient is stable for discharge from the pulmonary standpoint. Labs and imaging reviewed. Rest of plan as noted below. Plan: Supplemental oxygen PRN. Titrate to keep O2 sats above 92%. Continue antibiotics Diurese with Lasix as tolerated Follow up Nephrology recommendations Monitor renal function. Monitor electrolytes. Supplement as necessary. Monitor ins and outs. Pain control Avoid oversedation DVT prophylaxis. Prognosis: Guarded given patient's multiple co-morbidities. Rest of plan per hospitalist and other consultants. Thank you, Dr. Phelan, for allowing me to participate in this patient's care. Further recommendations will depend on the patient's clinical course. Please do not hesitate to contact me if you have any questions or concerns. This medical document was created using an electronic medical record system with [email or web address] dictation system. Although these documentations are being carefully reviewed, there may still be some phonetic and typographical changes. The errors are purely typographical, due to imperfection on the software program, and do not reflect any compromise in the patient's medical care. Plan discussed with: Patient, Other (RN) Date of Service: Apr 26, 2025 Billing Provider: KARIS FUNES MD Common Visit Codes: [id number] INP/OBS CARE(HIGH) KARIS FUNES MD Apr 27, 2025 08:19
[2025-04-27 17:25] LABS: Hepatitis A Total Antibody Positive (Negative)
[2025-04-27 17:26] LABS: Hepatitis B Surface Antigen Negative (Negative); Hepatitis C Antibody Negative (Negative)
== END 2025-04-26 16:20 | disposition home or self-care (01) | DRG 433 ==
LOC: ER 13:09 → OVERFLOW 19:10 → EAST 04-24 04:28
PROVIDERS: ADMIT Internal Medicine; ATTEND Internal Medicine
PROC: 0W9G3ZX Drainage of Peritoneal Cavity, Percutaneous Approach, Diagnostic (ICD-10-PCS; principal; 2025-04-25)
DX: K70.31 Alcoholic cirrhosis of liver with ascites (principal); K76.6 Portal hypertension; I10 Essential (primary) hypertension; D73.89 Other diseases of spleen; N88.8 Other specified noninflammatory disorders of cervix uteri; N20.0 Calculus of kidney; R16.2 Hepatomegaly with splenomegaly, not elsewhere classified; K42.9 Umbilical hernia without obstruction or gangrene; Z82.49 Family history of ischemic heart disease and other diseases of the circulatory system; Z79.899 Other long term (current) drug therapy; Z80.42 Family history of malignant neoplasm of prostate
CPT/HCPCS: 36415; 49083; 72195; 74177; 74181; 76856; 80053; 80076; 82105; 82140; 82378; 83605; 83986; 85025; 85610; 85652; 85730; 86704; 86706; 86708; 86803; 87040; 87071; 87205; 87340; 89051; 93971; 96374; 99291; G0378; J0692; J2405

== ENCOUNTER 2025-05-06 10:58 | Emergency (ER) | payer MEDICAID, OTHER ==
[~2025-05-06] VITALS: Ht 30.5 cm; Wt 69.7 kg
[2025-05-06 10:59] VITALS: TEMP 98.6
--- NOTE | 2025-05-06 11:28 | ED.PDOC ---
GI ASSESSMENT HPI Comments 39y F who presents to the ED for chief complaint of abdominal pain. Pt states she was at PCP office today and told to come to the ED for further evaluation of her abdominal pain. Pt states she has history of liver cirrhosis dx in March 2025 and states since, she has had 1x paracentesis procedure at 2x weeks prior and sent now today for the same. Pt states she was heavy ETOH drinker and states last drink was in March 2025 Pt states in the ED, states she is having diffuse abdominal pain, rating the pain 7/10, constant, with no noted exacerbating or relieving factors. Pt otherwise denies any other symptoms at this time. Chief Complaint: Abdominal Pain Time Seen by MD: 11:22 Primary Care Provider: UNKNOWN Reviewed Notes: Medications, Allergies Allergies: Coded Allergies: NO KNOWN ALLERGIES (Unverified , 11/27/17) Home Meds Active Scripts Sulfamethoxazole-Trimethoprim (Bactrim) 1 Tab Tab, 1 TAB PO BID for 5 Days, #10 TAB 0 Refills Prov:JUAN HAN 09/22/22 Reported Medications Vit W/ Ferrous Fumara ( One Daily) Daily Tab, 1 TAB PO DAILY, #90 TAB 3 Refills 04/01/19 Information Source: Patient, Relative Mode of Arrival: Ambulatory Brought in by: daughter Timing: Hours Duration: Since onset Prehospital treatment: None Quality: None (fullness) Vomitus: None Stool: Normal Severity: Moderate Recent: Ingestion of ETOH Recent Hx of: Liver Disease Pain Location: Diffuse Modifying Factors: Nothing Associated sign and symptoms: Abdominal Pain Past Medical History PAST MEDICAL HISTORY: HTN, Liver Surgical History (Other): ruptured ovarian cyst L ovary MANAGER FORMS History: No Pertinent MANAGER FORMS History Family History Family History: Family hx of heart monica Social History Smoker: Non-Smoker Alcohol: Heavy Drugs: Denies Drug Use Lives In: Home Constitutional: denies: chills, diaphoresis, fatigue, fever, malaise, sweats, weakness, others EENTM: denies: blurred vision, double vision, ear bleeding, ear discharge, ear drainage, ear pain, ear ringing, eye pain, eye redness, hearing loss, mouth pain, mouth swelling, nasal discharge, nose bleeding, nose congestion, nose pain, photophobia, tearing, throat pain, throat swelling, voice changes, others Respiratory: denies: cough, hemoptysis, orthopnea, SOB at rest, shortness of breath, SOB with excertion, stridor, wheezing, others Cardiovascular: denies: chest pain, dizzy spells, diaphoresis, Dyspnea on exertion, edema, irregular heart beat, left arm pain, lightheadedness, palpitations, PND, syncope, others Gastrointestinal: reports: abdominal pain; denies: abdomen distended, blood streaked bowels, constipated, diarrhea, dysphagia, difficulty swallowing, hematemesis, melena, nausea, poor appetite, poor fluid intake, rectal bleeding, rectal pain, vomiting, others Genitourinary: denies: abnormal vagina bleeding, burning, dyspareunia, dysuria, flank pain, frequency, hematuria, incontinence, pain, , vagina discharge, urgency, others Neurological: denies: dizziness, fainting, headache, left sided numbness, left sided weakness, numbness, paresthesia, pre-existing deficit, right sided numbness, right sided weakness, seizure, speech problems, tingling, tremors, weakness, others Musculoskeletal: denies: back pain, gout, joint pain, joint swelling, muscle pain, muscle stiffness, neck pain, others Integumetry: denies: bruises, change in color, change in hair/nails, dryness, laceration, lesions, lumps, rash, wounds, others Allergic/Immunocompromised: denies: Difficulty Healing, Frequent Infections, H rika, Itching, others Hematologic/Lymphatic: denies: anemia, blood clots, easy bleeding, easy bruising, swollen glands, others Endocrine: denies: excessive hunger, excessive sweating, excessive thirst, excessive urination, flushing, intolerance to cold, intolerance to heat, unexplained weight gain, unexplained weight loss, others Psychiatric: denies: anxiety, bipolar disorder, depression, hopeless, panic disorder, schizophrenia, sleepless, suicidal, others All Other Systems: Reviewed and Negative Physical Exam General Appearance: Moderate Distress HEENT: Pharynx Normal, Scleral Icterus (L), Scleral Icterus (R), TMs Normal Neck: Full Range of Motion, Non-Tender, Normal, Normal Inspection Respiratory: Chest Non-Tender, Lungs Clear, No Accessory Muscle Use, No Respiratory Distress, Normal Breath Sounds Cardiovascular: No Edema, No JVD, No Murmur, No Gallop, Normal Peripheral Pulses, Regular Rate/Rhythm Breast Exam: Deferred Gastrointestinal: Distended, Hepatomegaly, No Pulsatile Mass, Normal Bowel Sounds Genitalia: Deferred Pelvic: Deferred Rectal: Deferred Extremities: No calf tenderness, Normal capillary refill, No pedal edema Musculoskeletal : Apperance: Normal Neurologic: Alert, gse mechanic II-XII nml as Tested, Motor Weakness, Normal Affect, Normal Mood, No Sensory Deficits Cerebellar Function: Normal Reflexes: Normal Skin: Dry, Jaundice, Warm Lymphatic: No Adenopathy Was a procedure done? Was a procedure done?: No GI differential Dx Differential Diagnosis: Pancreatitis, Dehydration, Food Poisoning, Stress Ulcer Other Differential Diagnosis liver disease, cirrhosis, ascites, X-Ray, Labs, Meds, VS Vital Signs Date Time Temp Pulse Resp B/P (MAP) Pulse Ox O2 Delivery O2 Flow Rate FiO2 05/06/25 16:27 94 17 124/78 05/06/25 14:23 91 14 129/78 (95) 98 05/06/25 10:59 98.6 97 18 136/88 98 98.6 Lab Test 05/06/25 15:15 05/06/25 11:25 Range/Units Body Fluid Source Pending Body Fluid pH Pending Body Fluid WBC (Manual) Pending Body Fluid RBC (Manual) Pending Body Fluid Mononuclear Cells Pending Body Fluid Polymorphonuclear Cells Pending Body Fluid Glucose Pending Body Fluid Total Protein Pending Body Fluid Lactate Dehydrogenase Pending White Blood Count 3.4 L 4.4-10.8 10^3/uL Red Blood Count 3.49 L 4.0-5.20 10^6/uL Hemoglobin 9.3 L 12.2-16.2 g/dL Hematocrit 27.5 L 36.0-46.0 % Mean Corpuscular Volume 78.9 L 80.0-100.0 fL Mean Corpuscular Hemoglobin 26.7 L 28.0-32.0 pg Mean Corpuscular Hemoglobin Concent 33.8 32.0-36.0 g/dL Red Cell Distribution Width 25.3 H 11.8-14.3 % Platelet Count 105 L 140-450 10^3/uL Mean Platelet Volume 8.3 6.9-10.8 fL Neutrophils (%) (Auto) 55.7 37.0-80.0 % Lymphocytes (%) (Auto) 33.3 10.0-50.0 % Monocytes (%) (Auto) 6.4 0.0-12.0 % Eosinophils (%) (Auto) 3.4 0.0-7.0 % Basophils (%) (Auto) 1.2 0.0-2.0 % Neutrophils # (Auto) 1.9 1.6-8.6 10 ^3/uL Lymphocytes # (Auto) 1.1 0.4-5.4 10 ^3/uL Monocytes # (Auto) 0.2 0-1.3 10 ^3/uL Eosinophils # (Auto) 0.1 0-0.8 10 ^3/uL Basophils # (Auto) 0 0-0.2 10 ^3/uL Nucleated Red Blood Cells 0.3 % Platelet Estimate Decreased Large Platelets Few Anisocytosis (manual) Moderate Microcytosis Slight Ovalocytes Schistocytes Few Prothrombin Time 11.9 H 9.3-11.8 sec Prothrombin Time INR 1.14 0.9-1.15 Activated Partial Thromboplast Time 30.0 24.5-34.5 SEC Sodium Level 137 136-145 mmol/L Potassium Level 3.4 L 3.5-5.1 mmol/L Chloride Level 105 98-107 mmol/L Carbon Dioxide Level 22 20-31 mmol/L Anion Gap 10 5-15 Blood Urea Nitrogen 10 9-23 mg/dL Creatinine 0.59 0.550-1.02 mg/dL Glomerular Filtration Rate Calc 116 >90 mL/min BUN/Creatinine Ratio 16.9 10.0-20.0 Serum Glucose 84 74-106 mg/dL Calcium Level 7.9 L 8.7-10.4 mg/dL Total Bilirubin 1.0 0.2-1.0 mg/dL Aspartate Amino Transferase (AST) 77 H 13-40 U/L Alanine Aminotransferase (ALT) 21 7-40 U/L Alkaline Phosphatase 185 H 46-116 U/L Ammonia 11 11-32 umol/L Total Protein 8.2 5.7-8.2 g/dL Albumin 2.5 L 3.2-4.8 g/dL Current Medications Medications (Trade) Dose Ordered Sig/Dom Route Start Time Stop Time Status Last Admin Ondansetron HCl (Zofran) 4 mg ONCE ONCE IV 05/06/25 14:45 05/06/25 14:46 DC 05/06/25 16:27 Morphine Sulfate 2 mg ONCE ONCE IV 05/06/25 16:15 101/25 16:16 DC 05/06/25 16:27 PROCEDURE(s): ABDL - ABDOMEN LIMITED FINDINGS:/IMPRESSION: 1. Large volume ascites. The patient had the procedure done where approximately 4.2 L removed by paracentesis. The patient tolerated the procedure well. The patient did have some abdominal pain so was given morphine 2 mg IV push for the pain The patient was also given Zofran 4 mg IV push for the nausea Patient's CBC shows anemia with a hemoglobin of 9.3 and hematocrit of 27.5 The chemistry panel is within normal limits except for hypocalcemia 7.9 After the procedure, the patient is being given morphine 2 mg IV push for the pain and the patient is being discharged Images Reviewed?: Images reviewed and evaluated by me Time of 1ST Reevaluation: 12:00 Reevaluation 1ST: Unchanged Patient Education/Counseling: Diagnosis, Treatment, Prognosis Family Education/Counseling: Diagnosis, Treatment, Prognosis SEPSIS Sepsis Screen Date sepsis recognized/suspect: May 06, 2025 Time Sepsis recognized/suspect: 1101 Recent Procedure: No On Antibiotic Therapy: No Respiratory Rate >20: No Heart Rate >90: Yes Temp<36 C (96.8 F) or >38.3 C: No SBP <90 or MAP <65 mmHG: No New Acute Mental Status Change: No Is the patient on CPAP, BIPAP,: No Physician Orders Heplock Iv (05/06/25 11:15) Paracentesis (05/06/25 11:15) Paracentesis (05/06/25 11:15) Abdomen Limited (05/06/25 ) Lactate Dehydrogenase, Fluid (05/06/25 15:30) Protein, Body Fluid (05/06/25 15:30) Body Fluid Culture W/ Gs (05/06/25 15:30) Glucose Body Fluid (05/06/25 15:30) Body Fluid Ph (05/06/25 15:30) Gram Stain (05/06/25 15:30) Body Fluids, Diff. Cell Count (05/06/25 15:30) Vital Signs Date Time Temp Pulse Resp B/P (MAP) Pulse Ox O2 Delivery O2 Flow Rate FiO2 05/06/25 16:27 94 17 124/78 05/06/25 14:23 91 14 129/78 (95) 98 05/06/25 10:59 98.6 97 18 136/88 98 98.6 Laboratory Tests Test 05/06/25 11:25 White Blood Count 3.4 10^3/uL (4.4-10.8) L Medications Medications Dose Ordered Sig/Dom Route Start Time Stop Time Status Last Admin Dose Admin Morphine Sulfate 2 mg ONCE ONCE IV 05/06/25 16:15 05/06/25 16:16 DC 05/06/25 16:27 Ondansetron HCl 4 mg ONCE ONCE IV 05/06/25 14:45 05/06/25 14:46 DC 05/06/25 16:27 Departure 1 Departure Time of Disposition: 17:11 Impression: Primary Impression: Ascites Qualified Codes: K70.31 - Alcoholic cirrhosis of liver with ascites Additional Impression: Cirrhosis Qualified Codes: K70.31 - Alcoholic cirrhosis of liver with ascites Disposition: 01 HOME / SELF CARE / HOMELESS Condition: Fair Discharged With: Self Critical Care Note Critical Care Time?: No Stability Stability form required: No Heart Score Heart Score: Heart Score Response (Comments) Value History N/A 0 EKG N/A 0 Age N/A 0 Risk Factors N/A 0 Troponin N/A 0 Total 0 I personally scribed for SOLANGE VILLARREAL MD ([email or web address]) on 05/06/25 at 11:28. Electronically submitted by Lucy Guerra ([email or web address]). I personally scribed for SOLANGE VILLARREAL MD ([email or web address]) on 05/06/25 at 13:29. Electronically submitted by Lucy Guerra ([email or web address]). SOLANGE VILLARREAL MD May 06, 2025 11:28
--- NOTE | 2025-05-06 11:44 | DVH ---
[employer]. INDICATION: ASCITES TECHNIQUE: Targeted multiple real-time sonographic images of the abdomen for ascites were obtained. COMPARISON: None. FINDINGS:/IMPRESSION: 1. Large volume ascites.
[2025-05-06 11:48] LABS: Hemoglobin 9.3 g/dL (12.2-16.2)
[2025-05-06 11:50] LABS: Hematocrit 27.5 % (36.0-46.0); Mean Corpuscular Hemoglobin 26.7 pg (28.0-32.0); Mean Corpuscular Volume 78.9 fL (80.0-100.0); Nucleated Red Blood Cells % 0.3 %
[2025-05-06 12:04] LABS: INR 1.14 (0.9-1.15); Partial Thromboplastin Time 30.0 SEC (24.5-34.5); Prothrombin Time 11.9 sec (9.3-11.8)
[2025-05-06 12:07] LABS: Alanine Aminotransferase 21 U/L (7-40); Anion Gap 10 (5-15); BUN/Creatinine Ratio 16.9 (10.0-20.0); Bilirubin, Total 1.0 mg/dL (0.2-1.0); Blood Urea Nitrogen 10 mg/dL (9-23); Carbon Dioxide 22 mmol/L (20-31); Chloride 105 mmol/L (98-107); Glucose 84 mg/dL (74-106); Sodium 137 mmol/L (136-145); Total Protein 8.2 g/dL (5.7-8.2)
[2025-05-06 12:09] LABS: Albumin 2.5 g/dL (3.2-4.8); Alkaline Phosphatase 185 U/L (46-116); Calcium 7.9 mg/dL (8.7-10.4); Potassium 3.4 mmol/L (3.5-5.1)
[2025-05-06 12:26] LABS: Anisocytosis Moderate
[2025-05-06 15:34] VITALS: PULSE 88; RESP 18; O2SAT 98
--- NOTE | 2025-05-06 15:44 | DVH ---
US PARACENTESIS, HISTORY: pain PROCEDURE: Informed consent was obtained. The patient was placed in supine position. A limited locali zation ultrasound of the abdomen was obtained, and the skin site over the largest pocket of fluid was marked and entry site was prepped with chlorhexidine which was allowed to dry and draped in the usua l sterile fashion. Time out was performed. Following administration of 1% lidocaine local anesthetic, a 5 Danish centesis needle catheter was percutaneously inserted into the peritoneal collection until fluid was aspirated. The catheter was advanced into the fluid collection and the needle removed. Abo ut 4000 cc of fluid was aspirated and specimen sent for appropriate cultures/cytology/cultures and cy tology. The catheter was then removed and a sterile dressing applied. No immediate complication was identified. FINDINGS: Limited ultrasound imaging demonstrates moderate ascites. Aspirated fluid was clear and ser ous. IMPRESSION: US-guided paracentesis with approximately 4L removed.
[2025-05-06 16:00] VITALS: O2SAT 97
[2025-05-06] MEDS: MORPHINE SULFATE INJ 2 MG/ml SYRG IV ONE (16:26)
[2025-05-06] MEDS: MORPHINE SULFATE 4 MG/ML SYR/VIAL IV ONE ×2 (16:27→18:30)
[2025-05-06] MEDS: ONDANSETRON HCL 4 MG/2 ML VIAL IV ONE ×2 (16:27→18:30)
[2025-05-06] MEDS ORDERED: MORPHINE SULFATE INJ 2 MG/ml SYRG IV ONE (17:15)
[2025-05-06 18:30] VITALS: BP 114/70; PULSE 91; RESP 16
== END 2025-05-06 17:13 | disposition home or self-care (01) ==
LOC: ER 11:01
DX: R18.8 Other ascites (principal); K74.60 Unspecified cirrhosis of liver; I10 Essential (primary) hypertension; F10.90 Alcohol use, unspecified, uncomplicated; Z79.899 Other long term (current) drug therapy; Y90.9 Presence of alcohol in blood, level not specified
CPT/HCPCS: 36415; 49083; 76705; 76942; 80053; 82140; 83986; 85025; 85610; 85730; 87071; 87205; 89051; 96374; 96375; 96376; 99285; C1729; J2270; J2405

== ENCOUNTER 2025-05-12 12:55 | Inpatient (IN) | payer MEDICAID ==
[~2025-05-12] VITALS: Ht 157.5 cm; Wt 68.7 kg
--- NOTE | 2025-05-12 13:34 | ED.PDOC ---
GI ASSESSMENT HPI Comments 39 y/o F, with PMhx of liver cirrhosis and HTN presents to the ED for CC of abdominal pain. Patient states, she has been experiencing abdominal distension with associated symptoms of nausea and vomiting x4days. Patient reports further PMHx of abdominal ascites; endorses last paracentesis to have been on 05/06/25. Patient denies diarrhea, constipation, hematemesis, fatigue, or weakness. No other symptoms or modifying factors are present at this time. Chief Complaint: Abdominal Pain Time Seen by MD: 13:40 Primary Care Provider: UNKNOWN Reviewed Notes: Nurses Notes, Medications, Allergies Allergies: Coded Allergies: NO KNOWN ALLERGIES (Unverified , 11/27/17) Home Meds Active Scripts Sulfamethoxazole-Trimethoprim (Bactrim) 1 Tab Tab, 1 TAB PO BID for 5 Days, #10 TAB 0 Refills Prov:JUAN HAN 09/22/22 Reported Medications Vit W/ Ferrous Fumara ( One Daily) Daily Tab, 1 TAB PO DAILY, #90 TAB 3 Refills 04/01/19 Information Source: Patient Mode of Arrival: Ambulatory Timing: Days Duration: Since onset Prehospital treatment: None Vomitus: Watery Stool: Normal Severity: Moderate Recent: None Recent Hx of: None Pain Location: Diffuse Associated sign and symptoms: Nausea, Vomiting, Abdominal Pain Past Medical History PAST MEDICAL HISTORY: HTN, Liver VISUAL EDUCATOR History: No Pertinent VISUAL EDUCATOR History Family History Family History: Family hx of heart monica Social History Smoker: Non-Smoker Alcohol: Heavy Drugs: Denies Drug Use Lives In: Home Constitutional: denies: chills, diaphoresis, fatigue, fever, malaise, sweats, weakness, others EENTM: denies: blurred vision, double vision, ear bleeding, ear discharge, ear drainage, ear pain, ear ringing, eye pain, eye redness, hearing loss, mouth pain, mouth swelling, nasal discharge, nose bleeding, nose congestion, nose pain, photophobia, tearing, throat pain, throat swelling, voice changes, others Respiratory: denies: cough, hemoptysis, orthopnea, SOB at rest, shortness of breath, SOB with excertion, stridor, wheezing, others Cardiovascular: denies: chest pain, dizzy spells, diaphoresis, Dyspnea on exertion, edema, irregular heart beat, left arm pain, lightheadedness, palpitations, PND, syncope, others Gastrointestinal: reports: abdominal pain, nausea, vomiting; denies: abdomen distended, blood streaked bowels, constipated, diarrhea, dysphagia, difficulty swallowing, hematemesis, melena, poor appetite, poor fluid intake, rectal bleeding, rectal pain, others Genitourinary: denies: abnormal vagina bleeding, burning, dyspareunia, dysuria, flank pain, frequency, hematuria, incontinence, pain, , vagina discharge, urgency, others Neurological: denies: dizziness, fainting, headache, left sided numbness, left sided weakness, numbness, paresthesia, pre-existing deficit, right sided numbness, right sided weakness, seizure, speech problems, tingling, tremors, weakness, others Musculoskeletal: denies: back pain, gout, joint pain, joint swelling, muscle pain, muscle stiffness, neck pain, others Integumetry: denies: bruises, change in color, change in hair/nails, dryness, laceration, lesions, lumps, rash, wounds, others Allergic/Immunocompromised: denies: Difficulty Healing, Frequent Infections, Hives, Itching, others Hematologic/Lymphatic: denies: anemia, blood clots, easy bleeding, easy bruising, swollen glands, others Endocrine: denies: excessive hunger, excessive sweating, excessive thirst, excessive urination, flushing, intolerance to cold, intolerance to heat, unexplained weight gain, unexplained weight loss, others Psychiatric: denies: anxiety, bipolar disorder, depression, hopeless, panic disorder, schizophrenia, sleepless, suicidal, others All Other Systems: Reviewed and Negative Physical Exam General Appearance: No Apparent Distress, Normal HEENT: Normal ENT Inspection, Pharynx Normal, TMs Normal Neck: Full Range of Motion, Non-Tender, Normal, Normal Inspection Respiratory: Chest Non-Tender, Lungs Clear, No Accessory Muscle Use, No Respiratory Distress, Normal Breath Sounds Cardiovascular: No Edema, No JVD, No Murmur, No Gallop, Normal Peripheral Pulses, Regular Rate/Rhythm Breast Exam: Deferred Gastrointestinal: No Organomegaly, Non Tender, No Pulsatile Mass, Normal Bowel Sounds, Soft, Other (abdominal ascites) Genitalia: Deferred Pelvic: Deferred Rectal: Deferred Extremities: No calf tenderness, Normal capillary refill, Normal inspection, Normal range of motion, Non-tender, No pedal edema Musculoskeletal : Apperance: Normal Neurologic: Alert, court interpreter II-XII nml as Tested, No Motor Deficits, Normal Affect, Normal Mood, No Sensory Deficits Cerebellar Function: Normal Reflexes: Normal Skin: Dry, Normal Color, Warm Lymphatic: No Adenopathy Was a procedure done? Was a procedure done?: No GI differential Dx Differential Diagnosis: Cholangitis, Constipation, Gastritis/PUD, Gastroenteritis, Inflammatory BD, Other (Ascites, peritonitis) X-Ray, Labs, Meds, VS Vital Signs Date Time Temp Pulse Resp B/P (MAP) Pulse Ox O2 Delivery O2 Flow Rate FiO2 05/12/25 12:56 98.0 90 16 138/75 98 98.0 Time of 1ST Reevaluation: 14:10 Reevaluation 1ST: Unchanged Patient Education/Counseling: Diagnosis, Treatment Family Education/Counseling: No Family Present Comments This is a patient who has ascites from cirrhosis. She frequents the hospital for routine paracentesis. Patient states she is back because her abdominal distention has worsened again she has no pain no fever. She is requesting for paracentesis. I have consulted the hospitalist she will be admitted for para centesis in the hospital. Additional Information Reviewed patient's previous visit(s): 05/06/25 Dx: Abdominal Distension, Admitted 04/23/25 Dx:Intractable Abdominal Pain The following tests were ordered, and results were reviewed by me: Additional information was gathered from interviewing the following independent historian: I reviewed and agreed with the following test results read by other provider: I discussed treatments and results with medical personnel and: PATIENT Comprehensive systems review obtained and negative except for what is stated in the HPI. SEPSIS Sepsis Screen Date sepsis recognized/suspect: May 12, 2025 Time Sepsis recognized/suspect: 1256 Recent Procedure: No On Antibiotic Therapy: No Respiratory Rate >20: No Heart Rate >90: Yes Temp<36 C (96.8 F) or >38.3 C: No SBP <90 or MAP <65 mmHG: No New Acute Mental Status Change: No Is the patient on CPAP, BIPAP,: No Physician Orders Complete Blood Count (05/12/25 13:56) Basic Metabolic Panel (05/12/25 13:56) PTPTT (05/12/25 13:56) Vital Signs Date Time Temp Pulse Resp B/P (MAP) Pulse Ox O2 Delivery O2 Flow Rate FiO2 05/12/25 12:56 98.0 90 16 138/75 98 98.0 Departure 1 Departure Time of Disposition: 14:01 Impression: Primary Impression: Ascites Qualified Codes: K70.31 - Alcoholic cirrhosis of liver with ascites Disposition: LEFT AWOL/ELOPED Condition: Stable Discharged With: Self Critical Care Note Critical Care Time?: No Stability Stability form required: No Heart Score Heart Score: Heart Score Response (Comments) Value History N/A 0 EKG N/A 0 Age N/A 0 Risk Factors N/A 0 Troponin N/A 0 Total 0 I personally scribed for CLAUDIA WILCOX MD ([email or web address]) on 05/12/25 at 13:34. Electronically submitted by Jagruti Brownlee ([email or web address]). I personally scribed for CLAUDIA WILCOX MD ([email or web address] on 05/12/25 at 13:42. Electronically submitted by Jagruti Brownlee ([email or web address]). I personally scribed for CLAUDIA WILCOX MD ([facility] on 05/12/25 at 13:49. Electronically submitted by Jagruti Brownlee ([email or web address]). CLAUDIA WILCOX MD May 12, 2025 13:34
[2025-05-12 14:37] LABS: Mean Corpuscular Hemoglobin 26.7 pg (28.0-32.0)
[2025-05-12 14:38] LABS: Hematocrit 25.5 % (36.0-46.0); Hemoglobin 8.5 g/dL (12.2-16.2); Mean Corpuscular Volume 80.3 fL (80.0-100.0); Nucleated Red Blood Cells % 0.1 %
[2025-05-12 14:44] LABS: Chloride 105 mmol/L (98-107); Potassium 3.6 mmol/L (3.5-5.1); Sodium 136 mmol/L (136-145)
[2025-05-12 14:45] LABS: Anion Gap 7 (5-15); Carbon Dioxide 24 mmol/L (20-31)
[2025-05-12 14:50] LABS: BUN/Creatinine Ratio 19.2 (10.0-20.0); Blood Urea Nitrogen 10 mg/dL (9-23); Glucose 102 mg/dL (74-106)
[2025-05-12 14:51] LABS: Calcium 7.8 mg/dL (8.7-10.4)
[2025-05-12 14:53] LABS: INR 1.19 (0.9-1.15); Partial Thromboplastin Time 29.9 SEC (24.5-34.5); Prothrombin Time 12.4 sec (9.3-11.8)
[2025-05-12 15:33] VITALS: PULSE 94; RESP 18; O2SAT 97
[2025-05-12] MEDS ORDERED: LACTULOSE 20Gm/30ML SOLN PO PRN (16:15)
[2025-05-12 16:42] LABS: Alanine Aminotransferase 18 U/L (7-40); Anion Gap 10 (5-15); BUN/Creatinine Ratio 13.8 (10.0-20.0); Blood Urea Nitrogen 9 mg/dL (9-23); Carbon Dioxide 22 mmol/L (20-31); Chloride 106 mmol/L (98-107); Potassium 3.8 mmol/L (3.5-5.1); Sodium 138 mmol/L (136-145); Total Protein 7.5 g/dL (5.7-8.2)
[2025-05-12 16:43] LABS: Bilirubin, Total 0.6 mg/dL (0.2-1.0)
[2025-05-12] MEDS: PANTOPRAZOLE 40 MG/10 ML VIAL INJ IV ONE (16:57)
[2025-05-12] MEDS: HYDROcodone-ACET 5/325MG TAB PO PRN (17:08)
[2025-05-12] MEDS: FUROSEMIDE 20 MG/2 ML VIAL IV SCH (17:13)
--- NOTE | 2025-05-12 17:22 | DVHHPRES ---
History of Present Illness Resident Creating Document: ANUPAMA IVEY RESIDENT History of Present Illness 39-year-old with a past medical history of cirrhosis of the liver diagnosed in April this year, ascites, liver nodules, spleen lesion, uterine lesion, paramedial hernia, nonobstructing recurrent renal stones, uterine lesion- cervical Nabothian cyst came to the emergency today with chief complaint of abdominal pain and distention which has been ongoing for the past few days. Patient states that the pain increased to 10/10 in intensity today morning, and she was unable to keep down any food or drinks yesterday which prompted the emergency room visit. The pain is generalized and her abdomen is tense dis tended, and she reports that the pain is more in the right upper quadrant and paraumbilical region. It is associated with shortness of breath on movement and generalized body pruritus but she denies any fever, chills, chest pain, palpitations, GERD symptoms. Last bowel movement was 2 days ago and she reports that she saw blood in her stool which was little in the amount, as per patient she has history of hemorrhoids. Patient reports that she has had multiple paracentesis and the last one was done on 05/06/2025 where 4.2 L of fluid was removed. In the last 6 days however the abdomen has increasingly become distended again. Patient is being admitted for further workup and for possible paracentesis. Past medical history- as stated in HPI past surgical history ruptured ovarian cyst on the right which was repaired Family history: Father had liver disease and enlarged heart Social history: Patient denies ever smoking or taking illicit drugs but admits to drinking alcohol vodka 2 and half bottles per day for many years. She states her last alcohol intake was in March( 2 months ago) when she was hospitalized and diagnosed of cirrhosis OBGYN history: Last LMP was at the end of February and since diagnosis of cirrhosis patient has not had a period Allergies: None PCP: does not have one Code status: full code Review of Systems Constitutional: No: Fever, Chills, Sweats, Weakness, Malaise, Other Eyes: No: Pain, Vision change, Conjunctivae inflammation, Eyelid inflammation, Other, Redness ENT: No: Ear pain, Ear discharge, Nose pain, Nose discharge, Nose congestion, M outh pain, Mouth swelling, Throat pain, Throat swelling, Other Gastrointestinal: Vomiting, Abdominal Pain; No: Nausea, Diarrhea, Constipation, Melena, Hematochezia, Other Genitourinary: No Dysuria, No Frequency, No Incontinence, No Hematuria, No Retention, No Other Musculoskeletal: No: other, neck pain, shoulder pain, arm pain, back pain, hand pain, leg pain, foot pain Skin: No: Rash, Lesions, Jaundice, Bruising, Other Neurological: No: Weakness, Numbness, Incoordination, Change in speech, Confusion, Seizures, Other Allergies: Coded Allergies: NO KNOWN ALLERGIES (Unverified , 11/27/17) Medications Current Medications Medications Dose Ordered Sig/Dom Route Start Time Stop Time Status Last Admin Dose Admin Lactulose 30 ml Q8HR PRN PO 05/12/25 16:15 Pantoprazole Sodium 40 mg DAILY IV 05/13/25 10:00 Ceftriaxone Sodium 50 ml @ 100 mls/hr DAILY@09 IV 05/12/25 16:15 05/12/25 16:57 100 MLS/HR Furosemide 20 mg DAILY IV 05/12/25 16:15 05/12/25 17:13 20 MG Spironolactone 100 mg DAILY PO 05/13/25 10:00 Acetaminophen/ Hydrocodone Bitart 1 tab Q8HPRN PRN PO 05/12/25 16:30 05/12/25 17:08 1 TAB Exam Vital Signs Vital Signs Date Time Temp Pulse Resp B/P (MAP) Pulse Ox O2 Delivery O2 Flow Rate FiO2 05/12/25 17:13 107/60 05/12/25 15:33 94 18 97 Room Air* 0 21 05/12/25 15:00 98.0 98.0 Exam Pt is lying on bed General Appearance: Alert, Oriented X3, Cooperative, Not in acute distress HEENT: Atraumatic, Mucous membranes moist/pink Respiratory: Clear to auscultation, Normal air movement, No added sounds Cardiovascular: Regular rate, Normal S1, Normal S2, No murmurs Abdominal: Active bowel sounds, shifting dullness present, tense, markedly distended, tender to palpation on all quadrants more in the right upper quadrant and periumbilical region, presence of protruding periumbilical hernia Extremities: No edema, Normal pulses, No tenderness/swelling Skin: No Significant rash, except past surgical scars Neuro: Normal speech, sensorimotor deficits none Psych/Mental Status: Mental status NL, Mood NL Nurse was there as motor tester during examination Labs/Xrays Labs Test 05/12/25 14:07 Range/Units White Blood Count 3.4 L 4.4-10.8 10^3/uL Red Blood Count 3.17 L 4.0-5.20 10^6/uL Hemoglobin 8.5 L 12.2-16.2 g/dL Hematocrit 25.5 L 36.0-46.0 % Mean Corpuscular Volume 80.3 80.0-100.0 fL Mean Corpuscular Hemoglobin 26.7 L 28.0-32.0 pg Mean Corpuscular Hemoglobin Concent 33.3 32.0-36.0 g/dL Red Cell Distribution Width 24.1 H 11.8-14.3 % Platelet Count 102 L 140-450 10^3/uL Mean Platelet Volume 8.6 6.9-10.8 fL Neutrophils (%) (Auto) 63.8 37.0-80.0 % Lymphocytes (%) (Auto) 28.5 10.0-50.0 % Monocytes (%) (Auto) 4.6 0.0-12.0 % Eosinophils (%) (Auto) 2.3 0.0-7.0 % Basophils (%) (Auto) 0.8 0.0-2.0 % Neutrophils # (Auto) 2.2 1.6-8.6 10 ^3/uL Lymphocytes # (Auto) 1.0 0.4-5.4 10 ^3/uL Monocytes # (Auto) 0.2 0-1.3 10 ^3/uL Eosinophils # (Auto) 0.1 0-0.8 10 ^3/uL Basophils # (Auto) 0 0-0.2 10 ^3/uL Nucleated Red Blood Cells 0.1 % Prothrombin Time 12.4 H 9.3-11.8 sec Prothrombin Time INR 1.19 H 0.9-1.15 Activated Partial Thromboplast Time 29.9 24.5-34.5 SEC SEPSIS Sepsis Screen Date sepsis recognized/suspect: May 12, 2025 Time Sepsis recognized/suspect: 1255 Recent Procedure: No On Antibiotic Therapy: No Respiratory Rate >20: No Heart Rate >90: Yes Temp<36 C (96.8 F) or >38.3 C: No SBP <90 or MAP <65 mmHG: No New Acute Mental Status Change: No Is the patient on CPAP, BIPAP,: No Physician Orders Admit (05/12/25 16:06) Code Status (05/12/25 16:06) Oxygen Per Hour (05/12/25 16:06) Complete Blood Count (05/13/25 04:00) Comprehensive Metabolic Panel (05/13/25 04:00) Condition: Unstable (05/12/25 16:06) Clear Liq Diet (05/12/25 Dinner) Sequential Compression Device (05/12/25 ) Oxygen By Nasal Cannula (05/12/25 16:06) Stat Ekg For Chest Pain (05/12/25 16:06) Notify Md Of Changes From Base (05/12/25 16:06) Dry Cell Assembly Machine Tender For 24 Hours (05/12/25 16:06) Emergency Dysrhythmia Protocol (05/12/25 16:06) Rhythm Strips Once Every Shift (05/12/25 16:06) Strict I & O QSHIFT (05/12/25 16:06) Comprehensive Metabolic Panel (05/12/25 16:06) Maintain Fluid Restrictions QSHIFT (05/12/25 16:06) Lactulose Oral (05/12/25 16:15) Pantoprazole (Protonix) (05/13/25 10:00) Ceftriaxone 1gm/50ml (Rocephin) (05/12/25 16:15) Furosemide Injection (Lasix Injection) (05/12/25 16:15) Spironolactone (Aldactone) (05/13/25 10:00) Hydrocodone-Acet 5/325mg Tab ([place] 5/32 (05/12/25 16:30) Vital Signs Date Time Temp Pulse Resp B/P (MAP) Pulse Ox O2 Delivery O2 Flow Rate FiO2 05/12/25 17:13 107/60 05/12/25 15:33 94 18 97 Room Air* 0 21 05/12/25 15:00 98.0 89 14 131/81 (98) 99 98.0 05/12/25 12:56 98.0 90 16 138/75 98 98.0 Laboratory Tests Test 05/12/25 14:07 White Blood Count 3.4 10^3/uL (4.4-10.8) L Medications Medications Dose Ordered Sig/Dom Route Start Time Stop Time Status Last Admin Dose Admin Acetaminophen/ Hydrocodone Bitart 1 tab Q8HPRN PRN PO 05/12/25 16:30 05/12/25 17:08 1 TAB Ceftriaxone Sodium 50 ml @ 100 mls/hr DAILY@09 IV 05/12/25 16:15 05/12/25 16:57 100 MLS/HR Furosemide 20 mg DAILY IV 05/12/25 16:15 05/12/25 17:13 20 MG Pantoprazole Sodium 40 mg ONCE ONCE IV 05/12/25 16:15 05/12/25 16:45 DC 05/12/25 16:57 40 MG Assessment/Plan Assessment/Plan # alcoholic Liver cirrhosis causing ascites #Liver nodules #pancytopenia possible due to above -pt/inr: high 12.4/1.19 -pantoprazole 40mg iv daily -stict I/O measurement -Fluid restriction -Spiranolactone 100mg po daily dom -furosemide 20mg iv daily -hydrocodone 5/325mg po q8 prn -ceftriazone 1g iv flor dom -lactulose 30ml po q8 prn -clear liquid diet -tele #Spleen lesion #Paraumbilical hernia #Nonobstructing renal calculus #Mesenteric, retroperitoneal lymphadenopathy #Uterine lesion #Uterus lesion, ultrasound of pelvis showed :2.2 cm cervical nabothian cysts -as seen in CT scan abd and pelvis and MRI done on 04/23/25 and 04/25/25 -outpatient followup recommended GI prophylaxis: Protonix 40 mg IV daily DVT prophylaxis: serial compression device Diet: clear liquid diet Goals of care discussed with the patient for more than 27 minutes: Full code status Case discussed with Dr. Blanc, patient and nurse. Plan discussed with: Patient Date of Service: May 12, 2025 Billing Provider: CHANTAL BLANC MD Common Visit Codes: [id number] INP/OBS CARE (HIGH) ANUPAMA IVEY RESIDENT May 12, 2025 17:22 CHANTAL BLANC MD May 13, 2025 17:37
[2025-05-12 17:36] LABS: Albumin 2.3 g/dL (3.2-4.8); Alkaline Phosphatase 166 U/L (46-116); Calcium 7.6 mg/dL (8.7-10.4); Glucose 102 mg/dL (74-106)
[2025-05-12 18:16] VITALS: RESP 18
[2025-05-12] MEDS ORDERED: DIPH25CA51 PO (18:22)
[2025-05-12 20:00] VITALS: PULSE 80; PULSE 82; RESP 17; O2SAT 100
[2025-05-12 21:00] VITALS: BP 123/81; PULSE 80; RESP 17; TEMP 97.9; O2SAT 100
[2025-05-12] MEDS ORDERED: FURO40TA4 PO (22:04)
[2025-05-13] VITALS (8 sets, daily range): BP systolic 109–120; BP diastolic 66–83; PULSE 70–89; RESP 16–20; TEMP 97.8–99.4; O2SAT 96–100
[2025-05-13 06:56] LABS: Hematocrit 22.8 % (36.0-46.0); Hemoglobin 7.8 g/dL (12.2-16.2); Mean Corpuscular Hemoglobin 28.2 pg (28.0-32.0); Mean Corpuscular Volume 81.9 fL (80.0-100.0); Nucleated Red Blood Cells % 0.5 %
[2025-05-13 07:11] LABS: Alanine Aminotransferase 17 U/L (7-40); Anion Gap 9 (5-15); BUN/Creatinine Ratio 19.2 (10.0-20.0); Blood Urea Nitrogen 10 mg/dL (9-23); Carbon Dioxide 23 mmol/L (20-31); Potassium 3.8 mmol/L (3.5-5.1); Sodium 140 mmol/L (136-145); Total Protein 6.3 g/dL (5.7-8.2)
[2025-05-13 07:13] LABS: Albumin 1.9 g/dL (3.2-4.8); Alkaline Phosphatase 122 U/L (46-116); Bilirubin, Total 0.7 mg/dL (0.2-1.0); Calcium 7.2 mg/dL (8.7-10.4); Chloride 108 mmol/L (98-107); Glucose 72 mg/dL (74-106)
[2025-05-13 08:27] LABS: Anisocytosis Slight
[2025-05-13] MEDS: SPIRONOLACTONE 25 MG TAB PO SCH (11:54)
[2025-05-13] MEDS: PANTOPRAZOLE 40 MG/10 ML VIAL INJ IV SCH (11:57)
--- NOTE | 2025-05-13 13:56 | DVHPNRES ---
Progress Note Date Seen: May 13, 2025 Resident Creating Document: ANUPAMA IVEY RESIDENT Has the PT tested + for MRSA If YES, has PT been informed?: No Medical Necessity Reason Pt with a Central, PICC or Fol: No Subjective Review of Systems 39-year-old with a past medical history of cirrhosis of the liver diagnosed in April this year, ascites, liver nodules, spleen lesion, uterine lesion, paramedial hernia, nonobstructing recurrent renal stones, uterine lesion- cervical Nabothian cyst came to the emergency today with chief complaint of abdominal pain and distention which has been ongoing for the past few days. Patient states that the pain increased to 10/10 in intensity today morning, and she was unable to keep down any food or drinks yesterday which prompted the emergency room visit. The pain is generalized and her abdomen is tense distended, and she reports that the pain is more in the right upper quadrant and paraumbilical region. It is associated with shortness of breath on movement and generalized body pruritus but she denies any fever, chills, chest pain, palpitations, GERD symptoms. Last bowel movement was 2 days ago and she reports that she saw blood in her stool which was little in the amount, as per patient she has history of hemorrhoids. Patient reports that she has had multiple paracentesis and the last one was done on 05/06/2025 where 4.2 L of fluid was removed. In the last 6 days however the abdomen has increasingly become distended again. Patient is being admitted for further workup and for possible paracentesis. Past medical history- as stated in HPI past surgical history ruptured ovarian cyst on the right which was repaired Family history: Father had liver disease and enlarged heart Social history: Patient denies ever smoking or taking illicit drugs but admits to drinking alcohol vodka 2 and half bottles per day for many years. She states her last alcohol intake was in March( 2 months ago) when she was hospitalized and diagnosed of cirrhosis OBGYN history: Last LMP was at the end of February and since diagnosis of cirrhosis patient has not had a period Allergies: None PCP: does not have one Code status: full code ROS: 05/13/2025: Patient was seen and examined by me at the bedside. we did an ascitic fluid tap and removed 3.2 L of fluid. We have sent the fluid for LDH, albumin, PTH, culture, Gram staining, glucose, protein as well as serum albumin and lactate dehydrogenase. Results are pending. After removal of fluid patient reported feeling slightly better. We are going to continue monitoring her. Objective vital signs Vital Sign Date Time Temp Pulse Resp B/P (MAP) Pulse Ox O2 Delivery O2 Flow Rate FiO2 05/13/25 11:56 129/76 05/13/25 09:00 98.2 72 16 99 98.2 05/12/25 20:00 Room Air* 0 21 Total Intake and Output 05/12/25 05/12/25 05/13/25 15:00 23:00 07:00 Intake Total 400 ml Balance 400 ml medications Current Medications Medications Dose Ordered Sig/Dom Route Start Time Stop Time Status Last Admin Dose Admin Lactulose 30 ml Q8HR PRN PO 05/12/25 16:15 Pantoprazole Sodium 40 mg DAILY IV 05/13/25 10:00 05/13/25 11:57 40 MG Ceftriaxone Sodium 50 ml @ 100 mls/hr DAILY@09 IV 05/12/25 16:15 05/13/25 12:07 100 MLS/HR Furosemide 20 mg DAILY IV 05/12/25 16:15 05/13/25 11:56 20 MG Spironolactone 100 mg DAILY PO 05/13/25 10:00 05/13/25 11:54 100 MG Acetaminophen/ Hydrocodone Bitart 1 tab Q8HPRN PRN PO 05/12/25 16:30 05/13/25 10:00 1 TAB Examination Pt is lying on bed General Appearance: Alert, Oriented X3, Cooperative, Not in acute distress HEENT: Atraumatic, Mucous membranes moist/pink Respiratory: Clear to auscultation, Normal air movement, No added sounds Cardiovascular: Regular rate, Normal S1, Normal S2, No murmurs Abdominal: Active bowel sounds, mildly distended, tender to palpation on all quadrants more in the right upper quadrant and periumbilical region, presence of protruding periumbilical hernia Extremities: No edema, Normal pulses, No tenderness/swelling Skin: No Significant rash, except past surgical scars Neuro: Normal speech, sensorimotor deficits none Psych/Mental Status: Mental status NL, Mood NL Nurse was there as administrative aide during examination laboratory and microbiology Laboratory Tests 05/13/25 06:10 Test 05/13/25 06:10 Range/Units Serum Glucose 72 L 74-106 mg/dL Labs and/or images reviewed: Labs reviewed by me, Image(s) reviewed by me Problem List/Assessment/Plan Problem List/Assessment/Plan # alcoholic Liver cirrhosis causing ascites #Liver nodules #pancytopenia possibly due to above -pt/inr: high 12.4/1.19 -pantoprazole 40mg iv daily -stict I/O measurement -Fluid restriction -Spiranolactone 100mg po daily dom -furosemide 20mg iv daily -hydrocodone 5/325mg po q8 prn -ceftriazone 1g iv flor dom -lactulose 30ml po q8 prn -clear liquid diet -tele-ascitic tab done on 05/13- 3.2 liters fluid removed -serum albumin, LDH pending -ascitic fluid culture, gram stain, albumin, ldh, ph, albumin,protein,glucose- pending #Spleen lesion #Paraumbilical hernia #Nonobstructing renal calculus #Mesenteric, retroperitoneal lymphadenopathy #Uterine lesion #Uterus lesion, ultrasound of pelvis showed :2.2 cm cervical nabothian cysts -as seen in CT scan abd and pelvis and MRI done on 04/23/25 and 04/25/25 -outpatient followup recommended GI prophylaxis: Protonix 40 mg IV daily DVT prophylaxis: serial compression device Diet: clear liquid diet Goals of care discussed with the patient for more than 27 minutes: Full code status Case discussed with Dr. Blanc, patient and nurse. Plan discussed with: Patient Date of Service: May 13, 2025 Billing Provider: CHANTAL BLANC MD Common Visit Codes: [id number] INP/OBS CARE(HIGH) ANUPAMA IVEY May 13, 2025 13:56 CHANTAL BLANC MD May 13, 2025 17:43
[2025-05-14 01:00] VITALS: BP 125/78; PULSE 83; RESP 20; TEMP 98.1; O2SAT 98
[2025-05-14 05:00] VITALS: BP 118/67; PULSE 82; RESP 20; TEMP 98.2; O2SAT 97
[2025-05-14 06:54] LABS: Hemoglobin 8.3 g/dL (12.2-16.2); Nucleated Red Blood Cells % 0.3 %
[2025-05-14 06:57] LABS: Hematocrit 24.4 % (36.0-46.0); Mean Corpuscular Hemoglobin 28.1 pg (28.0-32.0); Mean Corpuscular Volume 83.0 fL (80.0-100.0)
[2025-05-14 07:16] LABS: Anion Gap 8 (5-15); Carbon Dioxide 23 mmol/L (20-31); Potassium 3.8 mmol/L (3.5-5.1); Sodium 139 mmol/L (136-145)
[2025-05-14 07:22] LABS: BUN/Creatinine Ratio 16.9 (10.0-20.0); Blood Urea Nitrogen 10 mg/dL (9-23); Glucose 88 mg/dL (74-106)
[2025-05-14 07:24] LABS: Calcium 7.2 mg/dL (8.7-10.4); Chloride 108 mmol/L (98-107)
--- NOTE | 2025-05-14 07:27 | DVHNC2 ---
Other Procedure Procedure Ultrasound-guided paracentesis Indication Symptomatic ascites for diagnostic and therapeutic relief Anesthetic Local anesthesia achieved with 1% lidocaine to the skin, subcutaneous tissue and peritoneal lining. Prep Patient identified verifying using 2 identifiers. Patient was placed supine with head of bed elevated 20-30 degrees. Bedside ultrasound was used to localize the largest fluid pocket Success Clear, straw-colored ascitic fluid was aspirated. Catheters acute, and total of 3.5 L of ascitic fluid was drained slowly under sterile condition. Sample collected and sent for cell count and differential, albumin and total protein, Gram stain and culture, cytology, glucose LDH and amylase. Catheter removed and insertion site dressed with sterile gauze and Tegaderm. Home hemostasis achieved, no immediate complication noted. The patient tolerated the procedure well. Postprocedural vital signs including BP HR SpO2 were monitored. They were stable. Informed consent obtained: Yes Risks, benefits, and alternati: Yes UTO Consent Informed consent obtained after discussing the indications, risks including bleeding, infection, bowel injury, hypotension, benefits and alternatives. The patient verbalized understanding and agreed to procedure. Notes PROCEDURE HEALTH INFORMATICS ADVISOR: Dr Chantal Blanc Ultrasound used to [place] location: Yes CONSENT: Consent was obtained from the patient prior to the procedure. Indications, risks, and benefits were explained at length. Time out time: Patient medications and allergies reviewed. The risks and benefits of the procedure and the sedation options and risk were discussed with the patient's healthcare proxy. All questions were answered and informed consent was obtained. Patient identification and proposed procedure were verified prior to the procedure by the physician, and a nurse in the patient's room. The heart rate, respiratory rate, oxygen saturations, blood pressure, adequacy of pulmonary ventilation, and response to care were monitored throughout the procedure. The physical status of the patient was reassessed after the procedure. PROCEDURE SUMMARY: A time-out was performed. My hands were washed immediately prior to the procedure. I wore a surgical cap, mask with protective eyewear, sterile gown and sterile gloves throughout the procedure. The area was cleansed and draped in usual sterile fashion using chlorhexidine scrub. Anesthesia was achieved with 1% lidocaine. The _ of the abdomen was prepped and draped in a sterile fashion using chlorhexidine scrub. 1% lidocaine was used to numb the skin, soft tissue and peritoneum. The paracentesis catheter was inserted and advanced with negative pressure until _ colored fluid was aspirated. Approximately 60 mL of ascitic fluid was collected and sent for laboratory analysis. The catheter was then connected to the vaccutainer and 3.5 L liters of additional ascitic fluid were drained. The catheter was removed and no leaking was noted. A bandaid was placed over the puncture wound. The patient tolerated the procedure well without any immediate complications. Estimated blood loss was less than 5 mL. CPT 29369 Date of Service: May 13, 2025 Billing Provider: CHANTAL BLANC MD Common Visit Codes: PROCEDURE ONLY Procedure Codes: [id number] W/IMAGING VEE SALEEM RESIDENT May 14, 2025 07:27 CHANTAL BLANC MD May 14, 2025 20:13
[2025-05-14 08:00] VITALS: PULSE 82
[2025-05-14 08:10] VITALS: PULSE 80; RESP 17; O2SAT 100
[2025-05-14 09:00] VITALS: BP 117/77; PULSE 86; RESP 18; TEMP 98.3; O2SAT 96
[2025-05-14 09:14] LABS: Anisocytosis Moderate
[2025-05-14] MEDS: FUROSEMIDE 20 MG TAB PO SCH (11:23)
[2025-05-14] MEDS: SPIRONOLACTONE 25 MG TAB PO SCH (11:24)
[2025-05-14] MEDS ORDERED: SPIR100T4 PO (12:00)
--- NOTE | 2025-05-14 12:12 | DVHDSRES ---
Discharge Summary Date of Admission Resident Creating Document: ANUPAMA IVEY RESIDENT May 12, 2025 at 16:06 Date of Discharge: May 14, 2025 Admitting Diagnosis Alcoholic liver disease Labs/Diagnostic Data: Laboratory Results Test 05/14/25 05:42 05/13/25 10:30 05/13/25 06:10 05/12/25 14:07 White Blood Count 2.9 10^3/uL (4.4-10.8) Red Blood Count 2.94 10^6/uL (4.0-5.20) Hemoglobin 8.3 g/dL (12.2-16.2) Hematocrit 24.4 % (36.0-46.0) Mean Corpuscular Volume 83.0 fL (80.0-100.0) Mean Corpuscular Hemoglobin 28.1 pg (28.0-32.0) Mean Corpuscular Hemoglobin Concent 33.9 g/dL (32.0-36.0) Red Cell Distribution Width 24.1 % (11.8-14.3) Platelet Count 94 10^3/uL (140-450) Mean Platelet Volume 8.3 fL (6.9-10.8) Neutrophils (%) (Auto) 51.0 % (37.0-80.0) Lymphocytes (%) (Auto) 41.6 % (10.0-50.0) Monocytes (%) (Auto) 4.8 % (0.0-12.0) Eosinophils (%) (Auto) 1.6 % (0.0-7.0) Basophils (%) (Auto) 1.0 % (0.0-2.0) Neutrophils # (Auto) 1.5 10 ^3/uL (1.6-8.6) Lymphocytes # (Auto) 1.2 10 ^3/uL (0.4-5.4) Monocytes # (Auto) 0.1 10 ^3/uL (0-1.3) Eosinophils # (Auto) 0 10 ^3/uL (0-0.8) Basophils # (Auto) 0 10 ^3/uL (0-0.2) Nucleated Red Blood Cells 0.3 % Platelet Estimate Decreased Large Platelets Few Anisocytosis (manual) Moderate Schistocytes Few Sodium Level 139 mmol/L (136-145) Potassium Level 3.8 mmol/L (3.5-5.1) Chloride Level 108 mmol/L (98-107) Carbon Dioxide Level 23 mmol/L (20-31) Anion Gap 8 (5-15) Blood Urea Nitrogen 10 mg/dL (9-23) Creatinine 0.59 mg/dL (0.550-1.02) Glomerular Filtration Rate Calc 116 mL/min (>90) BUN/Creatinine Ratio 16.9 (10.0-20.0) Serum Glucose 88 mg/dL (74-106) Calcium Level 7.2 mg/dL (8.7-10.4) Body Fluid Source Peritoneal fluid Body Fluid pH 7.0 Body Fluid WBC (Manual) 101 CUMM (0-200) Body Fluid RBC (Manual) 372 CUMM (0-2000) Body Fluid Mononuclear Cells 97 % Body Fluid Polymorphonuclear Cells 3 % (0-25) Total Bilirubin 0.7 mg/dL (0.2-1.0) Aspartate Amino Transferase (AST) 58 U/L (13-40) Alanine Aminotransferase (ALT) 17 U/L (7-40) Alkaline Phosphatase 122 U/L (46-116) Lactate Dehydrogenase 200 U/L (120-246) Total Protein 6.3 g/dL (5.7-8.2) Albumin 1.9 g/dL (3.2-4.8) Prothrombin Time 12.4 sec (9.3-11.8) Prothrombin Time INR 1.19 (0.9-1.15) Activated Partial Thromboplast Time 29.9 SEC (24.5-34.5) Other Laboratory Tests 05/14/25 05:42 Brief Hx & Hospital Course: 39-year-old with a past medical history of cirrhosis of the liver diagnosed in April this year, ascites, liver nodules, spleen lesion, uterine lesion, paramedial hernia, nonobstructing recurrent renal stones, uterine lesion- cervical Nabothian cyst came to the emergency today with chief complaint of abdominal pain and distention which has been ongoing for the past few days. Patient states that the pain increased to 10/10 in intensity today morning, and she was unable to keep down any food or drinks yesterday which prompted the emergency room visit. The pain is generalized and her abdomen is tense distended, and she reports that the pain is more in the right upper quadrant and paraumbilical region. It is associated with shortness of breath on movement and generalized body pruritus but she denies any fever, chills, chest pain, palpitations, GERD symptoms. Last bowel movement was 2 days ago and she reports that she saw blood in her stool which was little in the amount, as per patient she has history of hemorrhoids. Patient reports that she has had multiple paracentesis and the last one was done on 05/06/2025 where 4.2 L of fluid was removed. In the last 6 days however the abdomen has increasingly become distended again. Patient is being admitted for further workup and for possible paracentesis. Past medical history- as stated in HPI past surgical history ruptured ovarian cyst on the right which was repaired Family history: Father had liver disease and enlarged heart Social history: Patient denies ever smoking or taking illicit drugs but admits to drinking alcohol vodka 2 and half bottles per day for many years. She states her last alcohol intake was in March( 2 months ago) when she was hospitalized and diagnosed of cirrhosis OBGYN history: Last LMP was at the end of February and since diagnosis of cirrhosis patient has not had a period Allergies: None PCP: does not have one Code status: full code Brief history of hospitalization: Patient Came in due to abdominal distention and pain. She has a history of alcoholic liver disease and multiple ascitic taps been done in the past. In the hospital we did an ascitic fluid tap and removed 3.2 L of fluid after which the patient reported feeling better. fluid analysis was done which came back with no significant infection seen. We gave the patient furosemide 20mg IV and spironolactone 100 mg per orally. The patient has been feeling better and we observed her overnight. She has no new active complaints and says that she feels much better. She is stable for discharge and we have adjusted her medication to furosemide 40 per orally and spironolactone 100 mg per orally. Patient has been counseled regarding adherence to medication and she is stable for discharge. Patient has agreed to the discharge plan. She is to follow up at [facility] next Sunday and meet her primary care physician within 10 days Pt is lying on bed General Appearance: Alert, Oriented X3, Cooperative, Not in acute distress HEENT: Atraumatic, Mucous membranes moist/pink Respiratory: Clear to auscultation, Normal air movement, No added sounds Cardiovascular: Regular rate, Normal S1, Normal S2, No murmurs Abdominal: Active bowel sounds, mildly distended, tender to palpation on all quadrants more in the right upper quadrant and periumbilical region, presence of protruding periumbilical hernia Extremities: No edema, Normal pulses, No tenderness/swelling Skin: No Significant rash, except past surgical scars Neuro: Normal speech, sensorimotor deficits none Psych/Mental Status: Mental status NL, Mood NL Nurse was there as television repairman during examination Condition at Discharge: Stable Final Diagnosis/Problems List #alcoholic Liver cirrhosis decompensated with ascites #Liver nodules #pancytopenia possibly due to above #Spleen lesion #Paraumbilical hernia #Nonobstructing renal calculus #Mesenteric, retroperitoneal lymphadenopathy #Uterine lesion #Uterus lesion, ultrasound of pelvis showed :2.2 cm cervical nabothian cysts Discharge Disposition: Home Discharge Instruct/Medications Diet: Consistent carbohydrate, Cardiac 2g Na,low cholest Activity: No Restrictions, As Tolerated Follow Up/Referral: Follow up with PCP in 10 days Follow up at discharge clinic with Dr Tyler on Sunday05/22/2025 a.m. clinic Follow up with Gastroenterology after referral from PCP Medications: Spironolactone 100 mg per orally daily continue Furosemide 40 mg per orally daily continue Resume all other home medications Scheduled Diphenhydramine Hcl (Benadryl Capsule), 25 MG PO PRN, (Reported) Furosemide (Furosemide), 1 TAB PO DAILY, (Reported) Vit W/ Ferrous Fumara ( One Daily), 1 TAB PO DAILY, (Reported) Spironolactone (Spironolactone), 1 TAB PO DAILY Sulfamethoxazole-Trimethoprim (Bactrim), 1 TAB PO BID Discharge Statement: "Patient was advised to return to the ER or call 911 if any headaches, dizziness, shortness of breath, chest pain, abdominal pain, bleeding, fevers, or worsening of medical condition. Patient was counseled about treatment plan, medications, possible side effects, patientverbalized understanding. All questions were answered to the best of my ability. This discharge took greater then 30 minutes in planning, reviewing documentation, counseling the patient, and discussing with other team members." ASSESSMENT ASSESSMENT Assessment Alcoholic liver cirrhosis causing ascites Date of Service: May 14, 2025 Billing Provider: CHANTAL BLANC MD Date of Service: May 14, 2025 Billing Provider: CHANTAL BLANC MD Common Visit Codes: 47541-RWE/OBS DISCH DAY >30min ANUPAMA IVEY May 14, 2025 12:12 CHANTAL BLANC MD May 14, 2025 20:01
[2025-05-14 14:47] VITALS: BP 109/72; PULSE 75; RESP 18; TEMP 36.8; O2SAT 98
[2025-05-15 13:07] LABS: Albumin, Body Fluid 0.5 g/dL (Not Estab.); Glucose, Body Fluid 89.0 mg/dL (.); LD, Body Fluid 42.0 IU/L (.)
== END 2025-05-14 16:35 | disposition home or self-care (01) | DRG 280 ==
LOC: ER 12:55 → OVERFLOW 16:06 → TELE-CENTR 17:54
PROVIDERS: ADMIT Student in an Organized Health Care Education/Training Program; ATTEND Student in an Organized Health Care Education/Training Program
PROC: 0W9G3ZX Drainage of Peritoneal Cavity, Percutaneous Approach, Diagnostic (ICD-10-PCS; principal; 2025-05-13)
DX: K70.31 Alcoholic cirrhosis of liver with ascites (principal); D61.818 Other pancytopenia; K42.9 Umbilical hernia without obstruction or gangrene; N20.0 Calculus of kidney; I10 Essential (primary) hypertension; N88.8 Other specified noninflammatory disorders of cervix uteri; R59.0 Localized enlarged lymph nodes; Z79.899 Other long term (current) drug therapy
CPT/HCPCS: 36415; 49083; 80048; 80053; 83615; 83986; 85025; 85610; 85730; 87071; 87081; 87205; 89051; 96365; G0378; J2470

== ENCOUNTER 2025-05-20 15:46 | Inpatient (IN) | payer MEDICAID ==
[~2025-05-20] VITALS: Ht 160 cm; Wt 68.5 kg
[~2025-05-20 15:46] MED LIST changes: +DIPH25CA51 PO; +FURO40TA4 PO; +SPIR100T4 PO
--- NOTE | 2025-05-20 16:38 | ED.PDOC ---
GI ASSESSMENT HPI Comments 39y F who presents to the ED via EMS for chief complaint of abdominal pain. Pt states she has been having diffuse abdominal pain, pressure like in nature, rating the pain 9/10, with no noted exacerbating or relieving factors. Pt has no associated symptoms. Pt has noted history of liver disease and ascites with noted distended abdomen. Pt states she did have paracentesis 2x weeks prior. Pt otherwise was discharged from [facility] 05/14/25 after being given medications for her liver disease. Pt states she is complaint with her medications. Chief Complaint: Abdominal Pain Time Seen by MD: 16:28 Primary Care Provider: UNKNOWN Reviewed Notes: Medications, Allergies Allergies: Coded Allergies: NO KNOWN ALLERGIES (Unverified , 11/27/17) Home Meds Active Scripts Spironolactone (Spironolactone) 100 Mg Tab, 1 TAB PO DAILY, #90 TAB 3 Refills Prov:SAMANTHA MCDONALD RESIDENT 05/14/25 Sulfamethoxazole-Trimethoprim (Bactrim) 1 Tab Tab, 1 TAB PO BID for 5 Days, #10 TAB 0 Refills Prov:JUAN HAN 09/22/22 Reported Medications Furosemide (Furosemide) 40 Mg Tab, 1 TAB PO DAILY 05/12/25 Diphenhydramine Hcl (BENADRYL CAPSULE) 25 Mg Cp, 25 MG PO PRN for ITCHING, CAP 05/12/25 Vit W/ Ferrous Fumara ( One Daily) Daily Tab, 1 TAB PO DAILY, #90 TAB 3 Refills 04/01/19 Information Source: Patient Mode of Arrival: EMS Past Medical History PAST MEDICAL HISTORY: HTN, Liver ARMED GUARD History: No Pertinent ARMED GUARD History Family History Family History: Family hx of heart monica Social History Smoker: Non-Smoker Alcohol: Heavy Drugs: Denies Drug Use Lives In: Home Constitutional: denies: chills, diaphoresis, fatigue, fever, malaise, sweats, w eakness, others EENTM: denies: blurred vision, double vision, ear bleeding, ear discharge, ear drainage, ear pain, ear ringing, eye pain, eye redness, hearing loss, mouth pain, mouth swelling, nasal discharge, nose bleeding, nose congestion, nose pain, photophobia, tearing, throat pain, throat swelling, voice changes, others Respiratory: denies: cough, hemoptysis, orthopnea, SOB at rest, shortness of breath, SOB with excertion, stridor, wheezing, others Cardiovascular: denies: chest pain, dizzy spells, diaphoresis, Dyspnea on exertion, edema, irregular heart beat, left arm pain, lightheadedness, palpitations, PND, syncope, others Gastrointestinal: reports: abdominal pain; denies: abdomen distended, blood streaked bowels, constipated, diarrhea, dysphagia, difficulty swallowing, hematemesis, melena, nausea, poor appetite, poor fluid intake, rectal bleeding, rectal pain, vomiting, others Genitourinary: denies: abnormal vagina bleeding, burning, dyspareunia, dysuria, flank pain, frequency, hematuria, incontinence, pain, , vagina discharge, urgency, others Neurological: denies: dizziness, fainting, headache, left sided numbness, left sided weakness, numbness, paresthesia, pre-existing deficit, right sided numbness, right sided weakness, seizure, speech problems, tingling, tremors, weakness, others Musculoskeletal: denies: back pain, gout, joint pain, joint swelling, muscle pain, muscle stiffness, neck pain, others Integumetry: denies: bruises, change in color, change in hair/nails, dryness, laceration, lesions, lumps, rash, wounds, others Allergic/Immunocompromised: denies: Difficulty Healing, Frequent Infections, Hives, Itching, others Hematologic/Lymphatic: denies: anemia, blood clots, easy bleeding, easy bruising, swollen glands, others Endocrine: denies: excessive hunger, excessive sweating, excessive thirst, excessive urination, flushing, intolerance to cold, intolerance to heat, unexplained weight gain, unexplained weight loss, others Psychiatric: denies: anxiety, bipolar disorder, depression, hopeless, panic disorder, schizophrenia, sleepless, suicidal, others All Other Systems: Reviewed and Negative Physical Exam General Appearance: Moderate Distress, Obese HEENT: Normal ENT Inspection, PERRL/EOMI Neck: Full Range of Motion, Non-Tender, Normal, Normal Inspection Respiratory: Chest Non-Tender, Lungs Clear, No Accessory Muscle Use, No Respiratory Distress, Normal Breath Sounds Cardiovascular: No Edema, No JVD, No Murmur, No Gallop, Normal Peripheral Pulses, Regular Rate/Rhythm Breast Exam: Deferred Gastrointestinal: Distended, No Organomegaly, No Pulsatile Mass, Normal Bowel Sounds, Soft, Tenderness, Other (Large ascites) Genitalia: Deferred Pelvic: Deferred Rectal: Deferred Extremities: No calf tenderness, Normal capillary refill, Normal inspection, Normal range of motion, Non-tender, No pedal edema Neurologic: Alert, material control associate II-XII nml as Tested, No Motor Deficits, Normal Affect, Normal Mood, No Sensory Deficits Cerebellar Function: Normal Reflexes: Normal Skin: Dry, Normal Color, Warm Peripheral Pulses: 1+ carotid (R), 1+ carotid (L) Lymphatic: No Adenopathy Was a procedure done? Was a procedure done?: No GI differential Dx Differential Diagnosis: Gastritis/PUD, Gastroenteritis, Hernia, Hepatitis, Pancreatitis, UTI, Dehydration, Electrolyte Imbalance Other Differential Diagnosis liver disease, cirrhosis, ascites X-Ray, Labs, Meds, VS Vital Signs Date Time Temp Pulse Resp B/P (MAP) Pulse Ox O2 Delivery O2 Flow Rate FiO2 05/20/25 18:33 98.0 85 18 122/81 (95) 100 98.0 05/20/25 18:31 84 18 122/81 05/20/25 17:04 88 18 132/86 (101) 99 05/20/25 17:04 88 18 99 Room Air 05/20/25 15:56 98.5 91 18 148/91 98 98.5 Lab Test 05/20/25 17:44 05/20/25 16:47 Range/Units Urine Color Yellow Yellow Urine Clarity Turbid H Clear Urine pH 6.5 5.0-9.0 Urine Specific [place] 1.023 1.001-1.035 Urine Protein 1+ H Negative Urine Ketones Trace Negative Urine Blood 2+ H Negative /uL Urine Nitrite Negative Negative Urine Bilirubin Negative Negative Urine Urobilinogen 4 H Negative mg/dL Urine Leukocyte Esterase Negative Negative /uL Urine RBC 22 0 - 4 /hpf Urine Microscopic WBC 3 0-5 /HPF Urine Squamous Epithelial Cells Few <5 /hpf Urine Bacteria None seen None Seen /hpf Urine Mucus Few None Seen Urine Glucose Normal Normal mg/dL White Blood Count 3.6 L 4.4-10.8 10^3/uL Red Blood Count 3.18 L 4.0-5.20 10^6/uL Hemoglobin 8.3 L 12.2-16.2 g/dL Hematocrit 25.5 L 36.0-46.0 % Mean Corpuscular Volume 80.3 80.0-100.0 fL Mean Corpuscular Hemoglobin 26.0 L 28.0-32.0 pg Mean Corpuscular Hemoglobin Concent 32.4 32.0-36.0 g/dL Red Cell Distribution Width 22.6 H 11.8-14.3 % Platelet Count 101 L 140-450 10^3/uL Mean Platelet Volume 8.1 6.9-10.8 fL Neutrophils (%) (Auto) 63.3 37.0-80.0 % Lymphocytes (%) (Auto) 27.0 10.0-50.0 % Monocytes (%) (Auto) 6.8 0.0-12.0 % Eosinophils (%) (Auto) 0.8 0.0-7.0 % Basophils (%) (Auto) 2.1 H 0.0-2.0 % Neutrophils # (Auto) 2.3 1.6-8.6 10 ^3/uL Lymphocytes # (Auto) 1.0 0.4-5.4 10 ^3/uL Monocytes # (Auto) 0.2 0-1.3 10 ^3/uL Eosinophils # (Auto) 0 0-0.8 10 ^3/uL Basophils # (Auto) 0.1 0-0.2 10 ^3/uL Nucleated Red Blood Cells 0.1 % Prothrombin Time 11.7 9.3-11.8 sec Prothrombin Time INR 1.12 0.9-1.15 Activated Partial Thromboplast Time 28.1 24.5-34.5 SEC Sodium Level 139 136-145 mmol/L Potassium Level 3.5 3.5-5.1 mmol/L Chloride Level 107 98-107 mmol/L Carbon Dioxide Level 26 20-31 mmol/L Anion Gap 6 5-15 Blood Urea Nitrogen 9 9-23 mg/dL Creatinine 0.57 0.550-1.02 mg/dL Glomerular Filtration Rate Calc 117 >90 mL/min BUN/Creatinine Ratio 15.8 10.0-20.0 Serum Glucose 95 74-106 mg/dL Calcium Level 8.0 L 8.7-10.4 mg/dL Magnesium Level 1.9 1.6-2.6 mg/dL Total Bilirubin 0.6 0.2-1.0 mg/dL Aspartate Amino Transferase (AST) 75 H 13-40 U/L Alanine Aminotransferase (ALT) 26 7-40 U/L Alkaline Phosphatase 171 H 46-116 U/L Total Protein 7.3 5.7-8.2 g/dL Albumin 2.4 L 3.2-4.8 g/dL Lipase 78 H 12-53 U/L Current Medications Medications (Trade) Dose Ordered Sig/Dom Route Start Time Stop Time Status Last Admin Metoclopramide HCl (Reglan Injection) 10 mg ONCE ONCE IV 05/20/25 16:45 05/20/25 16:46 DC 05/20/25 18:28 Hydromorphone HCl (Dilaudid Injection) 0.5 mg ONCE ONCE IV 05/20/25 16:45 05/20/25 16:46 DC 05/20/25 18:31 Sodium Chloride 1,000 ml @ 30 mls/hr Q24H ONCE IV 05/20/25 16:45 05/21/25 16:44 05/20/25 17:01 [place] [address] Ph: [phone] DIAGNOSTIC IMAGING Diagnostic Imaging Report : [id number] Signed PATIENT: MOLLY AJ ACCT: [id number] UNIT: [id number] : 1985 LOC: ER ROOM / BED: / AGE / SEX: 39 / F ADM STATUS: [facility] ER SERVICE 04 ORDERING PHYSICIAN: BART HERNÁNDEZ MD PROCEDURE(s): LRIBS - L RIB X RAY REASON: Fall at home ORDER NUMBER(s): [id number], ACCESSION NUMBER(s): [id number] CHEST RADIOGRAPH Indication: Fall at home Technique: XY L RIB X RAY Comparison: None FINDINGS: The cardiac silhouette is unremarkable. The lungs demonstrate no pulmonary airs pace consolidation. The pulmonary vasculature is unremarkable. There is no pleural effusion. There is no pneumothorax. No radiographic evidence for left rib fracture. IMPRESSION: No pulmonary airspace consolidation. ATED BY: BOBBY MIDDLETON MD DICTATED DATE/TIME: 05/20/251699 SIGNED BY: BOBBY MIDDLETON MD SIGNED DATE/TIME: 05/20/251699 CC: [place] [address] Ph: [phone] DIAGNOSTIC IMAGING Diagnostic Imaging Report : [id number] Signed PATIENT: MOLLY AJ ACCT: [id number] UNIT: [id number] : 1985 LOC: ER ROOM / BED: / AGE / SEX: 39 / F ADM STATUS: [facility] ER SERVICE 1638 ORDERING PHYSICIAN: BART HERNÁNDEZ MD PROCEDURE(s): ABPLIV - CT AB PEL WITH IV CON ONLY REASON: Acute abdominal pain severe ascites ORDER NUMBER(s): [id number], ACCESSION NUMBER(s): [id number] COMPUTERIZED TOMOGRAPHY ABDOMEN AND PELVIS WITH CONTRAST REASON FOR EXAM: Acute abdominal pain. Severe ascites COMPARISON: US ABDOMEN LIMITED on DOS: 05/06/25, US PELVIC on DOS: 04/25/25, MRI MRI ABD PLEVIS W/WO CONT on DOS: 04/25/25, CT CT AB PEL WITH IV CON ONLY on DOS: 04/23/25, CT ABD/PEL on DOS: 03/30/25 TECHNIQUE: The exam was performed on a Multidetector scanner. Spiral scans were acquired from the diaphragm to the symphysis pubis after administration of IV contrast. 2-D coronal and sagittal reformatted images were provided. Radiation optimization: All CT scans at this facility use at least one of these dose optimization techniques: Automated exposure control mA and/or kV adjustment per patient size (includes targeted exams where dose is matched to clinical in dication) or iterative reconstruction. CONTRAST ADMINISTRATION: 100 mL omnipaque 300 intravenously RADIATION DOSE: CTDI: 14.41 mGy DLP: 803.16 mGy-cm FINDINGS: There is mild dependent atelectasis at the lung bases. There is trace right pleural effusion. There is no pericardial effusion. The spleen is enlarged at 15.6 cm in length. The liver is borderline enlarged at 17.8 cm in length. There is nodular appearance of the liver surface consistent with cirrhosis. The portal vein is patent. The gallbladder is not distended. There is gallbladder wall thickening. No calcified gallstone is identified. The pancreas is within normal limits. The adrenal glands are normal. The kidneys enhance symmetrically. No solid renal mass is identified. There are several 1-2 mm nonobstructive calculi throughout the left kidney. There is no hydronephrosis of either kidney. There is no abdominal aortic aneurysm. There is a small to moderate amount of ascites. The majority of the abdominal distention is secondary to intra-abdominal fat. The uterus and ovaries are within normal limits. The urinary bladder is grossly unremarkable. The colonic stool burden is small. The appendix is normal. There is no pathologic distention of the small bowel. There is a umbilical hernia containing fat and fluid. No acute osseous abnormality is identified. IMPRESSION: Cirrhotic liver morphology. Splenomegaly consistent with portal hypertension. Nonobstructive left nephrolithiasis. Small to moderate ascites. The majority of the abdominal distention is secondary to intra-abdominal fat. ATED BY: FLO BAKER MD DICTATED DATE/TIME: 05/20/251936 SIGNED BY: FLO BAKER MD SIGNED DATE/TIME: 05/20/251936 CC: [place] [address] Ph: [phone] DIAGNOSTIC IMAGING Diagnostic Imaging Report : [id number] Signed PATIENT: MOLLY AJ ACCT: [id number] UNIT: [id number] : 1985 LOC: ER ROOM / BED: / AGE / SEX: 39 / F ADM STATUS: REG ER SERVICE 37 ORDERING PHYSICIAN: BART HERNÁNDEZ MD PROCEDURE(s): CXR2 - CHEST TWO VIEWS ROUTINE REASON: sob ORDER NUMBER(s): [id number], ACCESSION NUMBER(s): [id number] CHEST TWO VIEWS ROUTINE CLINICAL HISTORY: sob COMPARISON: None TECHNIQUE: Frontal and lateral view of the chest was obtained FINDINGS: Lines and Tubes: None Lungs: No focal consolidation. Pleura: No effusion. No pneumothorax. Cardiomediastinal contours: Unremarkable Bones: No acute osseous abnormality. IMPRESSION: 1. No acute cardiopulmonary disease. ATED BY: BERNIE ADORNO Jr., DO DICTATED DATE/TIME: 05/20/251941 SIGNED BY: BERNIE ADORNO Jr., DO SIGNED DATE/TIME: 10/15/25 1942 CC: X-Ray, Labs, Meds, VS Comment Course in the emergency department eventful patient came in because of severe abdominal pain and ascites patient has cirrhosis CBC 3600 with 63% neutrophils H&H 8.3 and 25.5 Urine shows 2+ blood 1+ protein INR 1.12 Magnesium 1.9 [address]ase [address] abdomen and pelvis shows the patient to have portal hypertension and cirrhosis and also abdominal fat Patient will be admitted for possible paracentesis by Radiology Time of 1ST Reevaluation: 16:38 Reevaluation 1ST: Unchanged Time of 2ND Reevaluation: 20:30 Reevaluation 2ND: Unchanged Patient Education/Counseling: Diagnosis, Treatment, Prognosis Family Education/Counseling: Diagnosis, Treatment, Prognosis, No Family Present SEPSIS Sepsis Screen Date sepsis recognized/suspect: May 20, 2025 Time Sepsis recognized/suspect: 1544 Recent Procedure: No On Antibiotic Therapy: No Respiratory Rate >20: No Heart Rate >90: Yes Temp<36 C (96.8 F) or >38.3 C: No SBP <90 or MAP <65 mmHG: No New Acute Mental Status Change: No Is the patient on CPAP, BIPAP,: No Physician Orders L Rib X Ray (05/20/25 16:05) Ct Ab Pel With Iv Con Only (05/20/25 16:38) Heplock Iv (05/20/25 16:38) Blood Pressure (05/20/25 16:38) Chest Two Views Routine (05/20/25 16:38) Sodium Chloride 0.9% (05/20/25 16:45) Ammonia (05/20/25 20:33) Vital Signs Date Time Temp Pulse Resp B/P (MAP) Pulse Ox O2 Delivery O2 Flow Rate FiO2 05/20/25 18:33 98.0 85 18 122/81 (95) 100 98.0 05/20/25 18:31 84 18 122/81 05/20/25 17:04 88 18 132/86 (101) 99 05/20/25 17:04 88 18 99 Room Air 05/20/25 15:56 98.5 91 18 148/91 98 98.5 Laboratory Tests Test 05/20/25 16:47 White Blood Count 3.6 10^3/uL (4.4-10.8) L Medications Medications Dose Ordered Sig/Dom Route Start Time Stop Time Status Last Admin Dose Admin Hydromorphone HCl 0.5 mg ONCE ONCE IV 05/20/25 16:45 05/20/25 16:46 DC 05/20/25 18:31 Metoclopramide HCl 10 mg ONCE ONCE IV 05/20/25 16:45 05/20/25 16:46 DC 05/20/25 18:28 Sodium Chloride 1,000 ml @ 30 mls/hr Q24H ONCE IV 05/20/25 16:45 05/21/25 16:44 05/20/25 17:01 Departure 1 Departure Time of Disposition: 20:30 Impression: Primary Impression: Diffuse abdominal pain Additional Impressions: Cirrhosis of liver with ascites Qualified Codes: K70.31 - Alcoholic cirrhosis of liver with ascites Anemia Qualified Codes: D64.9 - Anemia, unspecified Acute pancreatitis Disposition: ADMITTED INPATIENT Admit to: Tele Condition: Serious Critical Care Note Critical Care Time?: No Stability Stability form required: Yes Unstable for transfer: Telemetry monitoring (Telemetry monitoring required), Requires medication (Requires Med for stabilization) Heart Score Heart Score: Heart Score Response (Comments) Value History N/A 0 EKG N/A 0 Age <45 0 Risk Factors 1 or 2 risk factors 1 Troponin N/A 0 Total 1 I personally scribed for BART HERNÁNDEZ MD ([email or web address]) on 05/20/25 at 16:38. Electronically submitted by Lucy Guerra [facility] I personally scribed for BART HERNÁNDEZ MD ([email or web address]) on 05/20/25 at 17:39. Electronically submitted by Lucy Geurra ([facility] I personally scribed for BART HERNÁNDEZ MD ([email or web address]) on 05/20/25 at 19:59. Electronically submitted by Lucy Guerra ([facility] BART HERNÁNDEZ MD May 20, 2025 16:38
--- NOTE | 2025-05-20 16:58 | DVH ---
CHEST RADIOGRAPH Indication: Fall at home Technique: XY L RIB X RAY Comparison: None FINDINGS: The cardiac silhouette is unremarkable. The lungs demonstrate no pulmonary airspace consolidation. Th e pulmonary vasculature is unremarkable. There is no pleural effusion. There is no pneumothorax. No radiographic evidence for left rib fracture. IMPRESSION: No pulmonary airspace consolidation.
[2025-05-20] MEDS: SODIUM CHLORIDE 0.9% 1,000 ML IV ONE (17:01)
[2025-05-20 17:11] LABS: Hematocrit 25.5 % (36.0-46.0); Hemoglobin 8.3 g/dL (12.2-16.2); Mean Corpuscular Hemoglobin 26.0 pg (28.0-32.0); Mean Corpuscular Volume 80.3 fL (80.0-100.0); Nucleated Red Blood Cells % 0.1 %
[2025-05-20 17:22] LABS: INR 1.12 (0.9-1.15); Partial Thromboplastin Time 28.1 SEC (24.5-34.5); Prothrombin Time 11.7 sec (9.3-11.8)
[2025-05-20 17:24] LABS: Alanine Aminotransferase 26 U/L (7-40); Anion Gap 6 (5-15); BUN/Creatinine Ratio 15.8 (10.0-20.0); Bilirubin, Total 0.6 mg/dL (0.2-1.0); Carbon Dioxide 26 mmol/L (20-31); Chloride 107 mmol/L (98-107); Glucose 95 mg/dL (74-106); Magnesium 1.9 mg/dL (1.6-2.6); Potassium 3.5 mmol/L (3.5-5.1); Sodium 139 mmol/L (136-145); Total Protein 7.3 g/dL (5.7-8.2)
[2025-05-20 18:08] LABS: Albumin 2.4 g/dL (3.2-4.8); Alkaline Phosphatase 171 U/L (46-116); Blood Urea Nitrogen 9 mg/dL (9-23); Calcium 8.0 mg/dL (8.7-10.4); Lipase 78 U/L (12-53)
[2025-05-20 18:09] LABS: Urine Protein, UAD 1+ (Negative)
[2025-05-20] MEDS: METOCLOPRAMIDE HCL 5MG/ml INJ 2ml VIAL IV ONE (18:28)
[2025-05-20] MEDS: HYDROmorphone HCL 2 MG/ML VL/or syr IV ONE (18:31)
--- NOTE | 2025-05-20 19:40 | DVH ---
COMPUTERIZED TOMOGRAPHY ABDOMEN AND PELVIS WITH CONTRAST REASON FOR EXAM: Acute abdominal pain. Severe ascites COMPARISON: US ABDOMEN LIMITED on DOS: 05/06/25, US PELVIC on DOS: 04/25/25, MRI MRI ABD PLEVIS W/WO CONT on DOS: 04/25/25, CT CT AB PEL WITH IV CON ONLY on DOS: 04/23/25, CT ABD/PEL on DOS: 03/30/25 TECHNIQUE: The exam was performed on a Multidetector scanner. Spiral scans were acquired from the francia phragm to the symphysis pubis after administration of IV contrast. 2-D coronal and sagittal reformatt ed images were provided. Radiation optimization: All CT scans at this facility use at least one of th trinity dose optimization techniques: Automated exposure control mA and/or kV adjustment per patient size (includes targeted exams where dose is matched to clinical indication) or iterative reconstruction. CONTRAST ADMINISTRATION: 100 mL omnipaque 300 intravenously RADIATION DOSE: CTDI: 14.41 mGy DLP: 803.16 mGy-cm FINDINGS: There is mild dependent atelectasis at the lung bases. There is trace right pleural effusion. There i s no pericardial effusion. The spleen is enlarged at 15.6 cm in length. The liver is borderline enlarged at 17.8 cm in length. T here is nodular appearance of the liver surface consistent with cirrhosis. The portal vein is patent. The gallbladder is not distended. There is gallbladder wall thickening. No calcified gallstone is id entified. The pancreas is within normal limits. The adrenal glands are normal. The kidneys enhance symmetrically. No solid renal mass is identified. There are several 1-2 mm nonobstructive calculi thr oughout the left kidney. There is no hydronephrosis of either kidney. There is no abdominal aortic aneurysm. There is a small to moderate amount of ascites. The majority of the abdominal distention i s secondary to intra-abdominal fat. The uterus and ovaries are within normal limits. The urinary blad bonnie is grossly unremarkable. The colonic stool burden is small. The appendix is normal. There is no p athologic distention of the small bowel. There is a umbilical hernia containing fat and fluid. No acu te osseous abnormality is identified. IMPRESSION: Cirrhotic liver morphology. Splenomegaly consistent with portal hypertension. Nonobstructive left nephrolithiasis. Small to moderate ascites. The majority of the abdominal distention is secondary to intra-abdominal fat.
--- NOTE | 2025-05-20 19:44 | DVH ---
XY CHEST TWO VIEWS ROUTINE CLINICAL HISTORY: sob COMPARISON: None TECHNIQUE: Frontal and lateral view of the chest was obtained FINDINGS: Lines and Tubes: None Lungs: No focal consolidation. Pleura: No effusion. No pneumothorax. Cardiomediastinal contours: Unremarkable Bones: No acute osseous abnormality. IMPRESSION: 1. No acute cardiopulmonary disease.
[2025-05-20 21:18] LABS: Amphetamine Screen, Urine Neg (NEGATIVE); Cannabinoid Screen, Urine Pos (NEGATIVE); Opiate Scree,Urine Neg (NEGATIVE)
[2025-05-20 21:20] LABS: Barbiturate Scree,Urine Neg (NEGATIVE); Benzodiazephine Screen, Urine Neg (NEGATIVE); Cocaine Screen, Urine Neg (NEGATIVE); Phencyclidine Screen, Urine Neg (NEGATIVE)
[2025-05-20] MEDS ORDERED: ONDANSETRON HCL 4 MG/2 ML VIAL IV PRN (21:30)
--- NOTE | 2025-05-20 21:51 | DVHHPRES ---
History of Present Illness Resident Creating Document: ROBERT OLIVEROS RESIDENT History of Present Illness Ms. Anderson is a 39 year old female with PMHx of alcoholic liver cirrhosis, umbilical hernia, nephrolithiasis, and ovarian cysts, who presents today with chief complaint of abdominal pain. She reports the pain began around mid day today and is described as sharp and pressure, generalized, 9/10 intensity, without aggravating or relieving factors, associated with nausea, vomiting, generalized pruritus, and shortness of breath. She denies chest pain, palpitations, fever, diarrhea, hematemesis, jaundice, and disorientation. She was discharged from this institution on 05/13/2025 where she presented for similar symptoms and require paracentesis. Due to persistence of pain, the patient sought medical attention in the emergency department. On evaluation in the ED, the patient was in moderate distress, with stable vitals. Initial labs significant for pancytopenia, AST 75, ALP 171, albumin 2.4, and lipase 78. UDS positive for cannabis. UA without significant finding. abdominal CT shows cirrhotic liver morphology, splenomegaly consistent with portal hypertension, with small to moderate ascites. Abdominal ultrasound for ascites check shows moderate abdominal and pelvic ascites. Chest x-ray shows no acute cardiopulmonary disease. She was admitted for further workup and monitoring. Prior Medical History: Umbilical Hernia, Surgical history ovarian cyst removal Allergies: Denies Social: denies drugs and tobacco use, states she drinks 3 bottles of vodka a day for 15 years with cessation in March 2025 Review of Systems Review of Systems Constitutional: Denies weight loss, fever and chills. HEENT: Denies changes in vision and hearing. Respiratory: Refers shortness of breath, denies cough Cardiovascular: Denies chest discomfort or palpitations GI: Refers abdominal pain, abdominal distention, nausea, vomiting, denies diarrhea : Denies dysuria and urinary frequency. Musculoskeletal: Denies symptoms Skin: Denies rash and pruritus. Neurological: denies dizziness headache vision or hearing problems Allergies: Coded Allergies: NO KNOWN ALLERGIES (Unverified , 11/27/17) Medications Current Medications Medications Dose Ordered Sig/Dom Route Start Time Stop Time Status Last Admin Dose Admin Diphenhydramine HCl 25 mg PRN PO 05/20/25 21:30 UNV Furosemide 40 mg DAILY PO 05/21/25 10:00 UNV Ondansetron HCl 4 mg Q6HPRN PRN IV 05/20/25 21:30 UNV Exam Vital Signs Vital Signs Date Time Temp Pulse Resp B/P (MAP) Pulse Ox O2 Delivery O2 Flow Rate FiO2 05/20/25 20:46 98.0 85 18 124/82 (96) 99 98.0 05/20/25 17:04 Room Air Exam General: The patient alert and oriented in person place and time. Patient following commands HEENT: Normocephalic, atraumatic, normal reactive pupils, EOM intact, pink conjunctiva, pink moist mucous membrane Respiratory/pulmonary: Bilateral chest expansion, no pain on palpation of chest wall, clear lungs bilaterally, vesicular murmurs present in almost all lung herman, no associated crackles or wheezes. Cardiovascular: Normal RRR, normal S1 and S2, no murmurs Abdomen: Abdomen distended, normal bowel sounds, shifting dullness to percussion, soft, generalized pain to palpation of abdominal quadrants, no palpable masses. Extremities: No deformities bilateral pitting edema +1, normal pulses Skin: No rashes or pruritus, there is no sacral edema present at this time. Neurological: Intact cranial nerves with no focal neurologic deficits Labs/Xrays Labs Test 05/20/25 20:51 05/20/25 17:44 05/20/25 16:47 Range/Units Ammonia < 10 L 11-32 umol/L Urine Color Yellow Yellow Urine Clarity Turbid H Clear Urine pH 6.5 5.0-9.0 Urine Specific [place] 1.023 1.001-1.035 Urine Protein 1+ H Negative Urine Ketones Trace Negative Urine Blood 2+ H Negative /uL Urine Nitrite Negative Negative Urine Bilirubin Negative Negative Urine Urobilinogen 4 H Negative mg/dL Urine Leukocyte Esterase Negative Negative /uL Urine RBC 22 0 - 4 /hpf Urine Microscopic WBC 3 0-5 /HPF Urine Squamous Epithelial Cells Few <5 /hpf Urine Bacteria None seen None Seen /hpf Urine Mucus Few None Seen Urine Glucose Normal Normal mg/dL Urine Opiates Screen Neg NEGATIVE Urine Fentanyl Screen Neg NEGATIVE Urine Barbiturates Screen Neg NEGATIVE Urine Phencyclidine Screen Neg NEGATIVE Urine Amphetamines Screen Neg NEGATIVE Urine Benzodiazepines Screen Neg NEGATIVE Urine Cocaine Screen Neg NEGATIVE Urine Cannabinoids Screen Pos NEGATIVE White Blood Count 3.6 L 4.4-10.8 10^3/uL Red Blood Count 3.18 L 4.0-5.20 10^6/uL Hemoglobin 8.3 L 12.2-16.2 g/dL Hematocrit 25.5 L 36.0-46.0 % Mean Corpuscular Volume 80.3 80.0-100.0 fL Mean Corpuscular Hemoglobin 26.0 L 28.0-32.0 pg Mean Corpuscular Hemoglobin Concent 32.4 32.0-36.0 g/dL Red Cell Distribution Width 22.6 H 11.8-14.3 % Platelet Count 101 L 140-450 10^3/uL Mean Platelet Volume 8.1 6.9-10.8 fL Neutrophils (%) (Auto) 63.3 37.0-80.0 % Lymphocytes (%) (Auto) 27.0 10.0-50.0 % Monocytes (%) (Auto) 6.8 0.0-12.0 % Eosinophils (%) (Auto) 0.8 0.0-7.0 % Basophils (%) (Auto) 2.1 H 0.0-2.0 % Neutrophils # (Auto) 2.3 1.6-8.6 10 ^3/uL Lymphocytes # (Auto) 1.0 0.4-5.4 10 ^3/uL Monocytes # (Auto) 0.2 0-1.3 10 ^3/uL Eosinophils # (Auto) 0 0-0.8 10 ^3/uL Basophils # (Auto) 0.1 0-0.2 10 ^3/uL Nucleated Red Blood Cells 0.1 % Prothrombin Time 11.7 9.3-11.8 sec Prothrombin Time INR 1.12 0.9-1.15 Activated Partial Thromboplast Time 28.1 24.5-34.5 SEC Sodium Level 139 136-145 mmol/L Potassium Level 3.5 3.5-5.1 mmol/L Chloride Level 107 98-107 mmol/L Carbon Dioxide Level 26 20-31 mmol/L Anion Gap 6 5-15 Blood Urea Nitrogen 9 9-23 mg/dL Creatinine 0.57 0.550-1.02 mg/dL Glomerular Filtration Rate Calc 117 >90 mL/min BUN/Creatinine Ratio 15.8 10.0-20.0 Serum Glucose 95 74-106 mg/dL Calcium Level 8.0 L 8.7-10.4 mg/dL Magnesium Level 1.9 1.6-2.6 mg/dL Total Bilirubin 0.6 0.2-1.0 mg/dL Aspartate Amino Transferase (AST) 75 H 13-40 U/L Alanine Aminotransferase (ALT) 26 7-40 U/L Alkaline Phosphatase 171 H 46-116 U/L Total Protein 7.3 5.7-8.2 g/dL Albumin 2.4 L 3.2-4.8 g/dL Lipase 78 H 12-53 U/L SEPSIS Sepsis Screen Date sepsis recognized/suspect: May 20, 2025 Time Sepsis recognized/suspect: 1544 Recent Procedure: No On Antibiotic Therapy: No Respiratory Rate >20: No Heart Rate >90: Yes Temp<36 C (96.8 F) or >38.3 C: No SBP <90 or MAP <65 mmHG: No New Acute Mental Status Change: No Is the patient on CPAP, BIPAP,: No Physician Orders L Rib X Ray (05/20/25 16:05) Ct Ab Pel With Iv Con Only (05/20/25 16:38) Heplock Iv (05/20/25 16:38) Blood Pressure (05/20/25 16:38) Chest Two Views Routine (05/20/25 16:38) Sodium Chloride 0.9% (05/20/25 16:45) Blood Alcohol (05/20/25:25) Magnesium (05/20/25:25) Lactate Dehydrogenase (05/20/25:25) Phosphorus (05/20/25 21:25) Thyroid Stimulating Hormone (05/20/25:25) Vitamin D, 25-Hydroxy (05/20/25:25) Vitamin B12 (05/20/25 21:25) Abdomen Limited (05/20/25:25) Complete Blood Count (05/21/25 04:00) Comprehensive Metabolic Panel (05/21/25 04:00) Admit (05/20/25:25) Allergies (05/20/25:25) Code Status (05/20/25:) Condition: Stable (05/20/25:25) Clear Liq Diet (05/21/25 Breakfast) Sequential Compression Device (05/20/25 ) Stat Ekg For Chest Pain (05/20/25:25) Notify Of Changes From Base (05/20/25 21:25) Emergency Dysrhythmia Protocol (10/15/25 21:25) Rhythm Strips Once Every Shift (05/20/25 21:25) Diphenhdramine Capsule (Benadryl Capsule (05/20/25 21:30) Furosemide Tablet (Lasix Tablet) (05/21/25 10:00) Test, Urine (05/20/25 21:25) Ondansetron Hcl (Zofran) (05/20/25 21:30) Ondansetron Hcl (Zofran) (05/20/25 21:30) Sodium Chloride 0.9% (05/20/25 21:30) Vital Signs Date Time Temp Pulse Resp B/P (MAP) Pulse Ox O2 Delivery O2 Flow Rate FiO2 05/20/25 20:46 98.0 85 18 124/82 (96) 99 98.0 05/20/25 18:33 98.0 85 18 122/81 (95) 100 98.0 05/20/25 18:31 84 18 122/81 05/20/25 17:04 88 18 132/86 (101) 99 05/20/25 17:04 88 18 99 Room Air 05/20/25 15:56 98.5 91 18 148/91 98 98.5 Laboratory Tests Test 05/20/25 16:47 White Blood Count 3.6 10^3/uL (4.4-10.8) L Medications Medications Dose Ordered Sig/Dom Route Start Time Stop Time Status Last Admin Dose Admin Hydromorphone HCl 0.5 mg ONCE ONCE IV 05/20/25 16:45 05/20/25 16:46 DC 05/20/25 18:31 0.5 MG Metoclopramide HCl 10 mg ONCE ONCE IV 05/20/25 16:45 05/20/25 16:46 DC 05/20/25 18:28 10 MG Sodium Chloride 1,000 ml @ 30 mls/hr Q24H ONCE IV 05/20/25 16:45 05/21/25 16:44 05/20/25 17:01 30 MLS/HR Assessment/Plan Assessment/Plan Assessment and Plan: Intractable abdominal pain secondary to Acute decompensated liver failure with ascites - Abdominal CT: small to moderate ascites - Abdominal ultrasound: moderate abdominal and pelvic ascites - Paracentesis has been done, 2550 mL of fluid removed - Studies of ascitic fluid pending: Albumin, PH, cell count and differential, body fluid culture and Gram stain - Furosemide 40 mg p.o. daily - We have counseled patient on the importance of maintaining complete alcohol cessation and low-sodium diet R/o spontaneous bacterial peritonitis - Ascitic fluid studies pending as mentioned above - Blood cultures ordered - Ceftriaxone 2 g IV daily - Metronidazole 500 mg IV Q 8 hours Alcoholic liver cirrhosis - Abdominal CT: Cirrhotic liver morphology - As above Splenomegaly likely secondary to portal hypertension - Abdominal CT: splenomegaly hypertension. Pancytopenia likely due to liver cirrhosis - Monitor H&H Nephrolithiasis - Abdominal CT: Nonobstructive left nephrolithiasis Cannabis use - I have counseled the patient on the importance of complete marijuana cessation for over 12 minutes. History of alcohol abuse - Patient states she used to drink 3 bottles of vodka a day with total cessat ion of alcohol use in March of 2025. She states she is currently not interested in more resources for maintaining sobriety. Vitamin-D deficiency - Vitamin-D 15366 units Q 7D Sick euthyroid syndrome - Elevated TSH, but normal free T4 and total T3 Diet: full liquid diet DVT prophylaxis: SCDs GI prophylaxis: Protonix 40 mg IV daily Case discussed with Dr. Gould Goals of care discussed with the patient for over 28 minutes. Full code. Plan discussed with: Patient, Other (Nurses) My Orders Orders - ROBERT OLIVEROS RESIDENT Procedure Category Date Status Time Blood Alcohol LAB 05/20/25 Logged 21:25 Magnesium LAB 05/20/25 Logged 21:25 Lactate Dehydrogenase LAB 05/20/25 Logged 21:25 Phosphorus LAB 05/20/25 Logged 21:25 Thyroid Stimulating LAB 05/20/25 Logged Hormone 21:25 Vitamin D, 25-Hydroxy LAB 05/20/25 Logged 21:25 Vitamin B12 LAB 05/20/25 Logged 21:25 Abdomen Limited US 05/20/25 Logged 21:25 Complete Blood Count LAB 05/21/25 Verified 04:00 Comprehensive LAB 05/21/25 Verified Metabolic Panel 04:00 Admit ADMIT 05/20/25 Transmitted 21:25 Allergies JONATHAN 05/20/25 In Process 21:25 Code Status CODE 05/20/25 Transmitted 21:25 Condition: Stable JONATHAN 05/20/25 In Process 21:25 Clear Liq Diet DIET 05/21/25 Transmitted Breakfast Sequential JONATHAN 05/20/25 In Process Compression Device Stat Ekg For Chest JONATHAN 05/20/25 In Process Pain 21:25 Notify Md Of Changes JONATHAN 05/20/25 In Process From Base 21:25 Emergency Dysrhythmia JONATHAN 05/20/25 In Process Protocol 21:25 Rhythm Strips Once JONATHAN 05/20/25 In Process Every Shift 21:25 Diphenhdramine PHA 05/20/25 Logged Capsule (Benadryl 21:30 Furosemide Tablet PHA 05/21/25 Logged (Lasix Tablet) 10:00 Test, Urine LAB 05/20/25 Logged 21:25 Ondansetron Hcl PHA 05/20/25 Logged (Zofran) 21:30 Ondansetron Hcl PHA 05/20/25 Logged (Zofran) 21:30 Sodium Chloride 0.9% PHA 05/20/25 Logged 21:30 Date of Service: May 20, 2025 Billing Provider: LOKESH SANTOS MD Common Visit Codes: 78164-[id number] INP/OBS CARE (HIGH) Secondary Visit Codes: [id number] CARE PLAN 30 MINUTES ROBERT OLIVEROS RESIDENT May 20, 2025 21:51 ANTHONY SANTOYO RESIDENT May 21, 2025 05:29
[2025-05-20 22:07] LABS: Magnesium 1.8 mg/dL (1.6-2.6)
[2025-05-20 22:21] LABS: Thyroid Stimulating Hormone 10.67 uIU/mL (0.55-4.78)
--- NOTE | 2025-05-20 22:24 | DVH ---
ABDOMINAL ULTRASOUND CLINICAL HISTORY: Ascites Check TECHNIQUE: Multiple grayscale and color Doppler ultrasound images were obtained of the abdomen. WID: COMPARISON: CT abdomen pelvis dated 05/20/2025 FINDINGS /impression: Moderate abdominal and pelvic ascites.
[2025-05-20] MEDS: ONDANSETRON HCL 4 MG/2 ML VIAL IV ONE (22:43)
[2025-05-20] MEDS: IOHEXOL 300 MG/ML 100ML BOTTLE IJ ONE (23:05)
[2025-05-20] MEDS: SODIUM CHLORIDE 0.9% 250 ML IV ONE (23:05)
[2025-05-20 23:16] LABS: Free T4 (Free Thyroxine) 1.08 ng/dL (0.89-1.76)
[2025-05-20 23:29] VITALS: BP 121/83; PULSE 88; RESP 2; RESP 20; TEMP 97.7; O2SAT 95
[2025-05-21 04:42] VITALS: BP 116/67; PULSE 82; RESP 18; TEMP 98.3; O2SAT 99
[2025-05-21] MEDS: KETOROLAC TROMETH 30 MG/ML 1ML VIAL IV PRN (04:42)
[2025-05-21 05:12] LABS: Hematocrit 23.3 % (36.0-46.0); Hemoglobin 7.9 g/dL (12.2-16.2); Mean Corpuscular Hemoglobin 27.8 pg (28.0-32.0); Mean Corpuscular Volume 81.8 fL (80.0-100.0); Nucleated Red Blood Cells % 0.2 %
[2025-05-21 05:27] LABS: Alanine Aminotransferase 24 U/L (7-40); Anion Gap 8 (5-15); BUN/Creatinine Ratio 20.4 (10.0-20.0); Bilirubin, Total 0.6 mg/dL (0.2-1.0); Blood Urea Nitrogen 11 mg/dL (9-23); Carbon Dioxide 24 mmol/L (20-31); Potassium 3.5 mmol/L (3.5-5.1); Sodium 140 mmol/L (136-145); Total Protein 6.8 g/dL (5.7-8.2)
[2025-05-21 05:34] LABS: Albumin 2.2 g/dL (3.2-4.8); Alkaline Phosphatase 149 U/L (46-116); Calcium 7.9 mg/dL (8.7-10.4); Chloride 108 mmol/L (98-107); Glucose 72 mg/dL (74-106)
[2025-05-21 09:00] VITALS: BP 93/59; PULSE 82; RESP 16; TEMP 98.1; O2SAT 97
[2025-05-21] MEDS: PANTOPRAZOLE 40 MG/10 ML VIAL INJ IV SCH (09:49)
[2025-05-21] MEDS: FUROSEMIDE 40 MG TAB PO SCH (09:54)
--- NOTE | 2025-05-21 12:26 | DVHDSRES ---
Discharge Summary Date of Admission Resident Creating Document: ANUPAMA IVEY RESIDENT May 20, 2025 at 21:25 Date of Discharge: May 21, 2025 Labs/Diagnostic Data: Laboratory Results Test 05/21/25 03:59 05/21/25 03:07 05/20/25 22:24 05/20/25 22:15 White Blood Count 3.3 10^3/uL (4.4-10.8) Red Blood Count 2.85 10^6/uL (4.0-5.20) Hemoglobin 7.9 g/dL (12.2-16.2) Hematocrit 23.3 % (36.0-46.0) Mean Corpuscular Volume 81.8 fL (80.0-100.0) Mean Corpuscular Hemoglobin 27.8 pg (28.0-32.0) Mean Corpuscular Hemoglobin Concent 33.9 g/dL (32.0-36.0) Red Cell Distribution Width 22.6 % (11.8-14.3) Platelet Count 100 10^3/uL (140-450) Mean Platelet Volume 8.2 fL (6.9-10.8) Neutrophils (%) (Auto) 61.3 % (37.0-80.0) Lymphocytes (%) (Auto) 30.7 % (10.0-50.0) Monocytes (%) (Auto) 5.6 % (0.0-12.0) Eosinophils (%) (Auto) 1.4 % (0.0-7.0) Basophils (%) (Auto) 1.0 % (0.0-2.0) Neutrophils # (Auto) 2.0 10 ^3/uL (1.6-8.6) Lymphocytes # (Auto) 1.0 10 ^3/uL (0.4-5.4) Monocytes # (Auto) 0.2 10 ^3/uL (0-1.3) Eosinophils # (Auto) 0 10 ^3/uL (0-0.8) Basophils # (Auto) 0 10 ^3/uL (0-0.2) Nucleated Red Blood Cells 0.2 % Sodium Level 140 mmol/L (136-145) Potassium Level 3.5 mmol/L (3.5-5.1) Chloride Level 108 mmol/L (98-107) Carbon Dioxide Level 24 mmol/L (20-31) Anion Gap 8 (5-15) Blood Urea Nitrogen 11 mg/dL (9-23) Creatinine 0.54 mg/dL (0.550-1.02) Glomerular Filtration Rate Calc 119 mL/min (>90) BUN/Creatinine Ratio 20.4 (10.0-20.0) Serum Glucose 72 mg/dL (74-106) Calcium Level 7.9 mg/dL (8.7-10.4) Total Bilirubin 0.6 mg/dL (0.2-1.0) Aspartate Amino Transferase (AST) 68 U/L (13-40) Alanine Aminotransferase (ALT) 24 U/L (7-40) Alkaline Phosphatase 149 U/L (46-116) Total Protein 6.8 g/dL (5.7-8.2) Albumin 2.2 g/dL (3.2-4.8) Body Fluid Source Peritoneal fluid Body Fluid pH 7.0 Body Fluid WBC (Manual) 50 CUMM (0-200) Body Fluid RBC (Manual) 282 CUMM (0-2000) Body Fluid Mononuclear Cells 98 % Body Fluid Polymorphonuclear Cells 2 % (0-25) Free Thyroxine (T4) Calculated 1.08 ng/dL (0.89-1.76) Total Triiodothyronine (TT3) 1.12 ng/mL (0.60-1.81) Lactic Acid Level 1.4 mmol/L (0.4-2.0) Test 05/20/25 20:51 05/20/25 17:44 05/20/25 16:47 Phosphorus Level 3.4 mg/dL (2.4-5.1) Magnesium Level 1.8 mg/dL (1.6-2.6) Ammonia < 10 umol/L (11-32) Lactate Dehydrogenase 150 U/L (120-246) Thyroid Stimulating Hormone (TSH) 10.67 uIU/mL (0.55-4.78) Plasma/Serum Blood Alcohol < 3.0 mg/dL (<10) Urine Color Yellow (Yellow) Urine Clarity Turbid (Clear) Urine pH 6.5 (5.0-9.0) Urine Specific [place] 1.023 (1.001-1.035) Urine Protein 1+ (Negative) Urine Ketones Trace (Negative) Urine Blood 2+ /uL (Negative) Urine Nitrite Negative (Negative) Urine Bilirubin Negative (Negative) Urine Urobilinogen 4 mg/dL (Negative) Urine Leukocyte Esterase Negative /uL (Negative) Urine RBC 22 /hpf (0 - 4) Urine Microscopic WBC 3 /HPF (0-5) Urine Squamous Epithelial Cells Few /hpf (<5) Urine Bacteria None seen /hpf (None Seen) Urine Mucus Few (None Seen) Urine Glucose Normal mg/dL (Normal) Urine Test Negative (Negative) Urine Opiates Screen Neg (NEGATIVE) Urine Fentanyl Screen Neg (NEGATIVE) Urine Barbiturates Screen Neg (NEGATIVE) Urine Phencyclidine Screen Neg (NEGATIVE) Urine Amphetamines Screen Neg (NEGATIVE) Urine Benzodiazepines Screen Neg (NEGATIVE) Urine Cocaine Screen Neg (NEGATIVE) Urine Cannabinoids Screen Pos (NEGATIVE) Prothrombin Time 11.7 sec (9.3-11.8) Prothrombin Time INR 1.12 (0.9-1.15) Activated Partial Thromboplast Time 28.1 SEC (24.5-34.5) Lipase 78 U/L (12-53) Vitamin B12 Level 875 pg/mL (211-911) Vitamin D 25-Hydroxy 11.8 ng/mL (30.0-100) Other Laboratory Tests 05/21/25 03:59 Brief Hx & Hospital Course: Ms. Anderson is a 39 year old female with PMHx of alcoholic liver cirrhosis, umbilical hernia, nephrolithiasis, and ovarian cysts, who presents today with chief complaint of abdominal pain. She reports the pain began around mid day today and is described as sharp and pressure, generalized, 9/10 intensity, without aggravating or relieving factors, associated with nausea, vomiting, generalized pruritus, and shortness of breath. She denies chest pain, palpitations, fever, diarrhea, hematemesis, jaundice, and disorientation. She was discharged from this institution on 05/13/2025 where she presented for similar symptoms and require paracentesis. Due to persistence of pain, the patient sought medical attention in the emergency department. On evaluation in the ED, the patient was in moderate distress, with stable vitals. Initial labs significant for pancytopenia, AST 75, ALP 171, albumin 2.4, and lipase 78. UDS positive for cannabis. UA without significant finding. abdominal CT shows cirrhotic liver morphology, splenomegaly consistent with portal hypertension, with small to moderate ascites. Abdominal ultrasound for ascites check shows moderate abdominal and pelvic ascites. Chest x-ray shows no acute cardiopulmonary disease. She was admitted for further workup and monitoring. Prior Medical History: Umbilical Hernia, Surgical history ovarian cyst removal Allergies: Denies Social: denies drugs and tobacco use, states she drinks 3 bottles of vodka a day for 15 years with cessation in March 2025 Brief history of hospitalization patient came in with Intractable abdominal pain secondary to Acute decompensated liver failure with ascites. Abdominal CT showed small to moderate ascites and Paracentesis has been done, 2550 mL of fluid removed. Studies of ascitic fluid no infection and was normal. Patient was given furosemide 40 mg and we have counseled the patient on the importance of maintaining complete alcohol cessation and low-sodium diet. We have ruled out spontaneous bacterial peritonitis. Ceftriaxone 2 g IV and metronidazole 500 mg IV was given. Patient reports feeling better and is being discharged as she is stable. We are going to continue the same medication for now as it was recently started. Patient to follow up at discharge clinic tomorrow as scheduled before. Patient has communicated understanding and agreed with the discharge plan. General: The patient alert and oriented in person place and time. Patient following commands HEENT: Normocephalic, atraumatic, normal reactive pupils, EOM intact, pink conjunctiva, pink moist mucous membrane Respiratory/pulmonary: Bilateral chest expansion, no pain on palpation of chest wall, clear lungs bilaterally, vesicular murmurs present in almost all lung herman, no associated crackles or wheezes. Cardiovascular: Normal RRR, normal S1 and S2, no murmurs Abdomen: slightly distended abdomen, normal bowel sounds, umbilical hernia present Extremities: No deformities bilateral pitting edema +1, normal pulses Skin: No rashes or pruritus, there is no sacral edema present at this time. Neurological: Intact cranial nerves with no focal neurologic deficits Operations or Procedures ABDOMINAL ULTRASOUND CLINICAL HISTORY: Ascites Check FINDINGS /impression: Moderate abdominal and pelvic ascites. --------- XY CHEST TWO VIEWS ROUTINE CLINICAL HISTORY: sob IMPRESSION: 1. No acute cardiopulmonary disease. ORDERING PHYSICIAN: BART HERNÁNDEZ MD PROCEDURE(s): ABPLIV - CT AB PEL WITH IV CON ONLY REASON: Acute abdominal pain severe ascites ORDER NUMBER(s): [id number], ACCESSION NUMBER(s): [id number] COMPUTERIZED TOMOGRAPHY ABDOMEN AND PELVIS WITH CONTRAST REASON FOR EXAM: Acute abdominal pain. Severe ascites IMPRESSION: Cirrhotic liver morphology. Splenomegaly consistent with portal hypertension. Nonobstructive left nephrolithiasis. Small to moderate ascites. The majority of the abdominal distention is secondary to intra-abdominal fat. ORDERING PHYSICIAN: BART HERNÁNDEZ MD PROCEDURE(s): LRIBS - L RIB X RAY IMPRESSION: No pulmonary airspace consolidation. Condition at Discharge: Stable Final Diagnosis/Problems List Intractable abdominal pain secondary to Acute decompensated liver failure with ascites ruled out spontaneous bacterial peritonitis Alcoholic liver cirrhosis Splenomegaly likely secondary to portal hypertension Pancytopenia likely due to liver cirrhosis Nephrolithiasis Cannabis use History of alcohol abuse Vitamin-D deficiency Sick euthyroid syndrome Discharge Disposition: Home Discharge Instruct/Medications Diet: Consistent carbohydrate, Cardiac 2g Na,low cholest Activity: No Restrictions, As Tolerated Follow Up/Referral: Follow up with PCP in 10 days follow up at discharge clinic tomorrow as planned before Medications: Continue same medications as before Scheduled Diphenhydramine Hcl (Benadryl Capsule), 25 MG PO PRN, (Reported) Furosemide (Furosemide), 1 TAB PO DAILY, (Reported) Vit W/ Ferrous Fumara ( One Daily), 1 TAB PO DAILY, (Reported) Spironolactone (Spironolactone), 1 TAB PO DAILY Sulfamethoxazole-Trimethoprim (Bactrim), 1 TAB PO BID Discharge Statement: "Patient was advised to return to the ER or call 911 if any headaches, dizziness, shortness of breath, chest pain, abdominal pain, bleeding, fevers, or worsening of medical condition. Patient was counseled about treatment plan, medications, possible side effects, patientverbalized understanding. All questions were answered to the best of my ability. This discharge took greater then 30 minutes in planning, reviewing documentation, counseling the patient, and discussing with other team members." ASSESSMENT ASSESSMENT Assessment Intractable abdominal pain secondary to Acute decompensated liver failure with ascites Date of Service: May 21, 2025 Billing Provider: CHANTAL BLANC MD, SREYA RESIDENT May 21, 2025 12:26
[2025-05-21 12:49] VITALS: BP 95/57; PULSE 67; RESP 17; TEMP 98.4; O2SAT 96
[2025-05-21 13:44] VITALS: BP 95/67; PULSE 67; RESP 17; TEMP 98.4; O2SAT 96
[2025-05-22 13:07] LABS: Albumin, Body Fluid 0.5 g/dL (Not Estab.); Glucose, Body Fluid 96.0 mg/dL (.); LD, Body Fluid 56.0 IU/L (.)
== END 2025-05-21 14:49 | disposition home or self-care (01) | DRG 280 ==
LOC: EDBD 15:46 → EDUNIT# 15:46 → ER 15:46 → OVERFLOW 21:25 → EAST 05-21 02:48
PROVIDERS: ADMIT Student in an Organized Health Care Education/Training Program; ATTEND Student in an Organized Health Care Education/Training Program
DX: K70.31 Alcoholic cirrhosis of liver with ascites (principal); K85.90 Acute pancreatitis without necrosis or infection, unspecified; D61.818 Other pancytopenia; N20.0 Calculus of kidney; K76.6 Portal hypertension; E55.9 Vitamin D deficiency, unspecified; E07.81 Sick-euthyroid syndrome; R16.1 Splenomegaly, not elsewhere classified; D64.9 Anemia, unspecified; I10 Essential (primary) hypertension
CPT/HCPCS: 36415; 71046; 71101; 74177; 76705; 80053; 80307; 80320; 81001; 81025; 82140; 82306; 82607; 83605; 83615; 83690; 83735; 83986; 84100; 84439; 84443; 84480; 85025; 85610; 85730; 87040; 87086; 89051; 96361; 96374; 96375; G0378; J1885; J2470; J3490

== ENCOUNTER 2025-06-27 21:50 | Inpatient (IN) | payer MEDICAID ==
[~2025-06-27] VITALS: Ht 160 cm; Wt 66.2 kg
--- NOTE | 2025-06-27 23:46 | DVH ---
CHEST RADIOGRAPH Indication: Volume overload Technique: Single frontal view of the chest was obtained COMPARISON: XY CHEST TWO VIEWS ROUTINE on DOS: 05/20/25, XY L RIB X RAY on DOS: 05/20/25 FINDINGS: Lines and Tubes: None Lungs: Clear Pleura: No effusion. No pneumothorax. Cardiomediastinal contours: Unremarkable Bones: Unremarkable IMPRESSION: 1. No acute disease.
[2025-06-27 23:49] LABS: Hematocrit 22.3 % (36.0-46.0); Hemoglobin 7.6 g/dL (12.2-16.2)
[2025-06-27 23:50] LABS: Mean Corpuscular Hemoglobin 31.0 pg (28.0-32.0); Mean Corpuscular Volume 90.7 fL (80.0-100.0); Nucleated Red Blood Cells % 0.0 %
[2025-06-28 00:04] LABS: Alanine Aminotransferase 18 U/L (7-40); Anion Gap 10 (5-15); BUN/Creatinine Ratio 27.9 (10.0-20.0); Blood Urea Nitrogen 17 mg/dL (9-23); Carbon Dioxide 20 mmol/L (20-31); Chloride 107 mmol/L (98-107); Potassium 3.9 mmol/L (3.5-5.1); Sodium 137 mmol/L (136-145); Total Protein 7.6 g/dL (5.7-8.2)
--- NOTE | 2025-06-28 00:04 | ED.PDOC ---
GI ASSESSMENT HPI Comments 39 y/o F presents with daughter for c/c of diffused abdominal distension and bilateral leg swelling. Significant history for alcohol-induced liver cirrhosis with ascites. Patient denies any pain, shortness of breath, or further acute symptoms. Last alcohol drink was in March,. Last paracentesis was 1 month ago. She is compliant with her Furosemide and Spirolactone medications. She is on prenatals, currently, for unknown reason (denies being or planning to be ). Past medical history: alcohol-induced liver cirrhosis with ascites Past surgical history: denies HPI: Poor Historian. REVIEW OF SYSTEMS: CONSTITUTIONAL: Denies acute: fever, diaphoresis, chills, generalized weakness. HEAD: Denies acute: headache, photophobia Eyes: Denies acute: Double vision, vision loss, eye pain, eye discharge. EARS: Denies acute: tinnitus, hearing loss, ear discharge, ear pain, THROAT: Denies acute: sore throat, swelling, difficulty swallowing , pain with swallowing, change in voice. NECK: Denies acute: neck pain, neck swelling, stiff neck. HEART: Denies acute : chest pain, palpitations, LUNGS: Denies acute: SOB, wheezing, cough, hemoptysis ABDOMEN: Denies acute: Nausea, Vomiting, diarrhea, melena , hematemesis, hematochezia SKIN: Denies acute: rash, redness, lesions, itchiness. EXTREMITIES: Denies acute: calf pain, numbness, tingling, weakness, denies pain in extremity. Denies acute: Low back pain. Neuro: Denies acute: focal neurological deficit, motor or sensory focal neurological deficit, tremors, seizure like activity, confusion, dizziness, change in mental status, loss of bowel or bladder function, cauda equina like symptoms. : Denies acute: dysuria, hematuria, flank pain, increase in urinary frequency. PSYCH: Denies acute: hallucination, suicidal ideation, homicidal ideation. FEMALE: Denies acute: abnormal vaginal bleeding, foul odor, unusual discharge. PHYSICAL EXAM: General: ----moderate----acute distress, awake and alert. Head: normocephalic, atraumatic. No raccoon's eyes, no de la cruz sign. Neck: supple, trachea is midline, no swelling. Throat: Normal phonation. Eyes:, no erythema, no purulent discharge, no proptosis, no icterus. Heart: regular rate, regular rhythm, no significant murmur appreciated. Lungs: no apparent respiratory distress, Able to speak in full sentences. No wheezing, no rhonchi, no crackles. No stridors Clear to auscultation bilaterally. Abdomen: Generalized mild tender to palpation, noted abdomen is distended, soft, no guarding, no rebound, + bowel sounds. Neuro: Awake, Alert, oriented to name, self, situation, follows commands GCS=15. Speech is normal. Skin: no petechia, no purpura, no cyanosis, non-pale, not jaundice. Lower extremities: --3/4 b/l - Pitting edema no deformity, no focal swelling, no calf TTP. Makes eye contact. moves all four extremities. Face: no apparent facial droop. ED COURSE: DISCLAIMER: This medical document was created using an electronic medical record system with voice recognition software and computerized dictation system. Although this document has been carefully reviewed, there might still be some phonetic and typ ographical errors. Occasional wrong-word or "sound-alike" substitutions may have occurred due to the inherent limitations of voice recognition software. These areas are purely typographical due to imperfections of the software programs and do not reflect any compromise in the patient's medical care. Please read the chart carefully and recognize, using context, where these substitutions have occurred. Chief Complaint: Abdominal Pain Time Seen by MD: 23:50 Primary Care Provider: UNKNOWN Reviewed Notes: Allergies Allergies: Coded Allergies: NO KNOWN ALLERGIES (Unverified , 11/27/17) Home Meds Active Scripts Spironolactone (Spironolactone) 100 Mg Tab, 1 TAB PO DAILY, #90 TAB 3 Refills Prov:SAMANTHA MCDONALD 05/14/25 Sulfamethoxazole-Trimethoprim (Bactrim) 1 Tab Tab, 1 TAB PO BID for 5 Days, #10 TAB 0 Refills Prov:JUAN HAN 09/22/22 Reported Medications Spironolactone (Spironolactone) 50 Mg Tab, 1 TAB PO DAILY 06/28/25 Furosemide (Furosemide) 40 Mg Tab, 1 TAB PO DAILY 10/7/25 Diphenhydramine Hcl (BENADRYL CAPSULE) 25 Mg Cp, 25 MG PO PRN for ITCHING, CAP 05/12/25 Vit W/ Ferrous Fumara ( One Daily) Daily Tab, 1 TAB PO DAILY, #90 TAB 3 Refills 04/01/19 Information Source: Patient Mode of Arrival: Wheelchair Past Medical History PAST MEDICAL HISTORY: HTN, 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 Was a procedure done?: No GI differential Dx Differential Diagnosis: Other ( DDX include Diverticulitis, colitis, gastro enteritis, acute abdomen, SBO, enteritis, constipation, volvulus, appendicitis, Gallbladder disease, choledocolithiasis, ascending cholangitis, pancreatitis, intraAbdominal mass/neoplasm, hepatitis, UTI, pylonephritis, kidney stone, aneurysm, dissection, Inflammatory bowel disease, gastroparesis, ischemic bowel,,,,,,Food poisoning, bacterial/parasitic/viral etiology, trauma, diabetes DKA,ovarian torsion, ovarian cyst/mass, tubo-ovarian abscess, , ectopic , PID, STD.) X-Ray, Labs, Meds, VS Vital Signs Date Time Temp Pulse Resp B/P (MAP) Pulse Ox O2 Delivery O2 Flow Rate FiO2 06/28/25 06:37 98.1 85 17 129/84 (99) 100 98.1 06/28/25 05:55 98 Room Air* 0 21 06/28/25 03:16 98.2 93 17 111/82 (92) 100 98.2 06/28/25 02:50 135/105 06/27/25 21:54 97.7 119 16 132/84 99 97.7 Lab Test 06/28/25 00:44 06/27/25 23:34 Range/Units Urine Color Yellow Yellow Urine Clarity Turbid H Clear Urine pH 6.5 5.0-9.0 Urine Specific [place] 1.030 1.001-1.035 Urine Protein 3+ H Negative Urine Ketones Negative Negative Urine Blood 2+ H Negative /uL Urine Nitrite Negative Negative Urine Bilirubin Negative Negative Urine Urobilinogen 2 H Negative mg/dL Urine Leukocyte Esterase Negative Negative /uL Urine RBC 14 0 - 4 /hpf Urine Microscopic WBC 7 H 0-5 /HPF Urine Squamous Epithelial Cells Few <5 /hpf Urine Renal Epithelial Cells Few None Seen /hpf Urine Bacteria Few H None Seen /hpf Urine Hyaline Casts Few 0 - 2 /lpf Urine Mucus Few None Seen Urine Yeast (Budding) Occasional None Seen /hpf Urine Glucose Normal Normal mg/dL White Blood Count 3.3 L 4.4-10.8 10^3/uL Red Blood Count 2.45 L 4.0-5.20 10^6/uL Hemoglobin 7.6 L 12.2-16.2 g/dL Hematocrit 22.3 L 36.0-46.0 % Mean Corpuscular Volume 90.7 80.0-100.0 fL Mean Corpuscular Hemoglobin 31.0 28.0-32.0 pg Mean Corpuscular Hemoglobin Concent 34.2 32.0-36.0 g/dL Red Cell Distribution Width 16.7 H 11.8-14.3 % Platelet Count 153 140-450 10^3/uL Mean Platelet Volume 7.6 6.9-10.8 fL Neutrophils (%) (Auto) 71.6 37.0-80.0 % Lymphocytes (%) (Auto) 22.9 10.0-50.0 % Monocytes (%) (Auto) 4.3 0.0-12.0 % Eosinophils (%) (Auto) 0.6 0.0-7.0 % Basophils (%) (Auto) 0.6 0.0-2.0 % Neutrophils # (Auto) 2.3 1.6-8.6 10 ^3/uL Lymphocytes # (Auto) 0.7 0.4-5.4 10 ^3/uL Monocytes # (Auto) 0.1 0-1.3 10 ^3/uL Eosinophils # (Auto) 0 0-0.8 10 ^3/uL Basophils # (Auto) 0 0-0.2 10 ^3/uL Nucleated Red Blood Cells 0.0 % Sodium Level 137 136-145 mmol/L Potassium Level 3.9 3.5-5.1 mmol/L Chloride Level 107 98-107 mmol/L Carbon Dioxide Level 20 20-31 mmol/L Anion Gap 10 5-15 Blood Urea Nitrogen 17 9-23 mg/dL Creatinine 0.61 0.550-1.02 mg/dL Glomerular Filtration Rate Calc 115 >90 mL/min BUN/Creatinine Ratio 27.9 H 10.0-20.0 Serum Glucose 129 H 74-106 mg/dL Lactic Acid Level 1.8 0.4-2.0 mmol/L Calcium Level 8.0 L 8.7-10.4 mg/dL Total Bilirubin 0.4 0.2-1.0 mg/dL Aspartate Amino Transferase (AST) 39 13-40 U/L Alanine Aminotransferase (ALT) 18 7-40 U/L Alkaline Phosphatase 170 H 46-116 U/L Troponin I High Sensitivity < 3 L </=34 ng/L B-Type Natriuretic Peptide 26.79 0-100 pg/mL Total Protein 7.6 5.7-8.2 g/dL Albumin 2.6 L 3.2-4.8 g/dL Current Medications Medications (Trade) Dose Ordered Sig/Dom Route Start Time Stop Time Status Last Admin Furosemide (Lasix Injection) 60 mg ONCE ONCE IV 06/27/25 23:30 06/27/25 23:31 DC 06/28/25 02:50 Acetaminophen/ Hydrocodone Bitart (Julian 5/325MG Tab) 1 tab ONCE ONCE PO 06/28/25 03:00 06/28/25 03:01 DC 06/28/25 04:18 Albumin Human 100 ml @ 100 mls/hr ONCE ONCE IV 06/28/25 07:15 06/28/25 08:14 DC 06/28/25 08:00 [place] [id number] Ph: [phone] DIAGNOSTIC IMAGING Diagnostic Imaging Report : [id number] Signed PATIENT: MOLLY AJ ACCT: [id number] UNIT: [id number] : 1985 LOC: ER ROOM / BED: / AGE / SEX: 39 / F ADM STATUS: REG ER SERVICE [id number] ORDERING PHYSICIAN: DARIUSZ LEVIN DO PROCEDURE(s): CXRP - CHEST PORTABLE REASON: Volume overload ORDER NUMBER(s): [id number], ACCESSION NUMBER(s): [id number] CHEST RADIOGRAPH Indication: Volume overload Technique: Single frontal view of the chest was obtained COMPARISON: XY CHEST TWO VIEWS ROUTINE on DOS: 05/20/25, XY L RIB X RAY on DOS: 05/20/25 FINDINGS: Lines and Tubes: None Lungs: Clear Pleura: No effusion. No pneumothorax. Cardiomediastinal contours: Unremarkable Bones: Unremarkable IMPRESSION: 1. No acute disease. ATED BY: SLAVA LABOY MD DICTATED DATE/TIME: 06/27/252343 SIGNED BY: SLAVA LABOY MD SIGNED DATE/TIME: 06/27/252343 CC: Time of 1ST Reevaluation: 23:50 Reevaluation 1ST: Unchanged Patient Education/Counseling: Diagnosis, Treatment Family Education/Counseling: Diagnosis, Treatment Comments MDM: patient presented with the above HPI.---abdominal distention/ascites---workup was initiated. patient was found with the above mentioned diagnosis. Patient is presenting hoping to receive paracentesis which she gets routinely. the following medications were ordered: please refer to order lists of meds and tests obtained by myself Dr. Levin. Patient ED course and VS have been stabilized. Patient has been reassessed in the ED and remained in a stable condition. Pertinent incidental findings were discussed with the patient and/or family. Patient/family voices understanding and is agreeable with plan. Patient has been observed in the ED adequate length of time to insure improvement/stability. Escalation of care considered: Consideration of escalation to observation or admission Albumin was replaced. Patient was given Lasix. Patient was ADMITTED to the medicine team for further evaluation and treatment of their presentation. All the reports of any imaging studies that were ordered by myself were reviewed by myself. SEPSIS Sepsis Screen Date sepsis recognized/suspect: Jun 27, 2025 Time Sepsis recognized/suspect: 2155 Recent Procedure: No On Antibiotic Therapy: No Respiratory Rate >20: No Heart Rate >90: Yes Temp<36 C (96.8 F) or >38.3 C: No SBP <90 or MAP <65 mmHG: No New Acute Mental Status Change: No Is the patient on CPAP, BIPAP,: No Physician Orders Regulatory Consultant (06/27/25 ) Chest Portable (06/27/25 23:21) Vital Signs Date Time Temp Pulse Resp B/P (MAP) Pulse Ox O2 Delivery O2 Flow Rate FiO2 06/28/25 06:37 98.1 85 17 129/84 (99) 100 98.1 06/28/25 05:55 98 Room Air* 0 21 06/28/25 03:16 98.2 93 17 111/82 (92) 100 98.2 06/28/25 02:50 135/105 06/27/25 21:54 97.7 119 16 132/84 99 97.7 Laboratory Tests Test 06/27/25 23:34 Lactic Acid Level 1.8 mmol/L (0.4-2.0) White Blood Count 3.3 10^3/uL (4.4-10.8) L Medications Medications Dose Ordered Sig/Dom Route Start Time Stop Time Status Last Admin Dose Admin Albumin Human 100 ml @ 100 mls/hr ONCE ONCE IV 06/28/25 07:15 06/28/25 08:14 DC 06/28/25 08:00 Departure 1 Departure Time of Disposition: 01:27 Impression: Primary Impression: Abdominal ascites Additional Impressions: Liver cirrhosis Hypoalbuminemia Disposition: ADMITTED INPATIENT Admit to: [facility] Condition: Guarded Discharged With: Self Critical Care Note Critical Care Time?: No I personally scribed for DARIUSZ LEVIN DO ([email or web address]) on 06/28/25 at 00:04. Electronically submitted by Blas Landaverde [email or web address]). DARIUSZ LEVIN DO Jun 28, 2025 00:04
[2025-06-28 00:05] LABS: Bilirubin, Total 0.4 mg/dL (0.2-1.0)
[2025-06-28 00:12] LABS: Albumin 2.6 g/dL (3.2-4.8); Alkaline Phosphatase 170 U/L (46-116); Calcium 8.0 mg/dL (8.7-10.4); Glucose 129 mg/dL (74-106)
[2025-06-28 02:08] LABS: Urine Budding Yeast OCCASIONAL /hpf (None Seen); Urine Protein, UAD 3+ (Negative)
[2025-06-28] MEDS: FUROSEMIDE INJECTION 10 ML ONE (02:30)
[2025-06-28] MEDS: HYDROcodone-ACET 5/325MG TAB ONE ×2 (02:31→04:16)
[2025-06-28] MEDS: FUROSEMIDE 100 MG/10ML VIAL IV ONE (02:50)
[2025-06-28] MEDS: HYDROcodone-ACET 5/325MG TAB PO ONE (04:18)
[2025-06-28 05:55] VITALS: O2SAT 98
[2025-06-28] MEDS: ALBUMIN 25% 100 ML IV ONE (08:00)
[2025-06-28] MEDS ORDERED: SPIR50TA5 PO (08:19)
[2025-06-28] MEDS ORDERED: LACTULOSE 20Gm/30ML SOLN PO PRN (08:30)
--- NOTE | 2025-06-28 08:54 | DVH ---
US ABDOMEN LIMITED HISTORY: Evaluate ascites COMPARISON: US ABDOMEN LIMITED on DOS: 05/20/25, US ABDOMEN LIMITED on DOS: 05/06/25, US PELVIC on DOS: 04/25/25 TECHNIQUE: Transverse and longitudinal sonographic images were obtained of all four quadrants of the abdomen and pelvis. FINDINGS: IMPRESSION: There is mild ascites.
[2025-06-28] MEDS: PANTOPRAZOLE 40 MG/10 ML VIAL INJ IV SCH (08:57)
[2025-06-28] MEDS: SPIRONOLACTONE 25 MG TAB PO SCH (08:58)
[2025-06-28] MEDS: FUROSEMIDE 40 MG TAB PO SCH (08:58)
[2025-06-28] MEDS: ONDANSETRON HCL 4 MG/2 ML VIAL IV PRN (09:01)
[2025-06-28] MEDS: MORPHINE SULFATE INJ 2 MG/ml SYRG IV PRN (09:01)
--- NOTE | 2025-06-28 09:01 | DVHHP2 ---
History of Present Illness Reason for Visit: Abdominal pain, abdominal distention, edema History of Present Illness 39-year-old female with known alcohol liver cirrhosis presents with progressive abdominal pain, abdominal distention, and bilateral lower extremity swelling for several days. Symptoms concerned for worsening ascites, volume overload, or hepatic decompensation. History of drinking three bottles of vodka daily, reports cessation in March 2025. Reports marijuana use, denies tobacco use last paracentesis a month ago. Past Medical History As stated in HPI Past Surgical History Denies Family History Reviewed, non-contributory to the management of this case. ALCOHOL: none Drugs: Marijuana Review of Systems Constitutional: Yes: Malaise Cardiovascular: Edema Gastrointestinal: Abdominal Pain, Other (Abdominal ascites, distended) Allergies: Coded Allergies: NO KNOWN ALLERGIES (Unverified , 11/27/17) Exam Vital Signs Vital Signs Date Time Temp Pulse Resp B/P (MAP) Pulse Ox O2 Delivery O2 Flow Rate FiO2 06/28/25 06:37 98.1 85 17 129/84 (99) 100 98.1 06/28/25 05:55 Room Air* 0 21 General Appearance: Alert, Oriented X3, Cooperative, mild distress HEENT: Atraumatic, PERRLA Respiratory: Clear to auscultation, Normal air movement Cardiovascular: Regular rate, Normal S1, Normal S2 Abdominal: Other (Abdominal distention, ascites) Extremities: Other (Bilateral lower extremity +2 pitting edema) Skin: No rashes Neuro: Normal gait, Normal speech Labs/Xrays Labs Test 06/28/25 00:44 06/27/25 23:34 Range/Units Urine Color Yellow Yellow Urine Clarity Turbid H Clear Urine pH 6.5 5.0-9.0 Urine Specific [place] 1.030 1.001-1.035 Urine Protein 3+ H Negative Urine Ketones Negative Negative Urine Blood 2+ H Negative /uL Urine Nitrite Negative Negative Urine Bilirubin Negative Negative Urine Urobilinogen 2 H Negative mg/dL Urine Leukocyte Esterase Negative Negative /uL Urine RBC 14 0 - 4 /hpf Urine Microscopic WBC 7 H 0-5 /HPF Urine Squamous Epithelial Cells Few <5 /hpf Urine Renal Epithelial Cells Few None Seen /hpf Urine Bacteria Few H None Seen /hpf Urine Hyaline Casts Few 0 - 2 /lpf Urine Mucus Few None Seen Urine Yeast (Budding) Occasional None Seen /hpf Urine Glucose Normal Normal mg/dL White Blood Count 3.3 L 4.4-10.8 10^3/uL Red Blood Count 2.45 L 4.0-5.20 10^6/uL Hemoglobin 7.6 L 12.2-16.2 g/dL Hematocrit 22.3 L 36.0-46.0 % Mean Corpuscular Volume 90.7 80.0-100.0 fL Mean Corpuscular Hemoglobin 31.0 28.0-32.0 pg Mean Corpuscular Hemoglobin Concent 34.2 32.0-36.0 g/dL Red Cell Distribution Width 16.7 H 11.8-14.3 % Platelet Count 153 140-450 10^3/uL Mean Platelet Volume 7.6 6.9-10.8 fL Neutrophils (%) (Auto) 71.6 37.0-80.0 % Lymphocytes (%) (Auto) 22.9 10.0-50.0 % Monocytes (%) (Auto) 4.3 0.0-12.0 % Eosinophils (%) (Auto) 0.6 0.0-7.0 % Basophils (%) (Auto) 0.6 0.0-2.0 % Neutrophils # (Auto) 2.3 1.6-8.6 10 ^3/uL Lymphocytes # (Auto) 0.7 0.4-5.4 10 ^3/uL Monocytes # (Auto) 0.1 0-1.3 10 ^3/uL Eosinophils # (Auto) 0 0-0.8 10 ^3/uL Basophils # (Auto) 0 0-0.2 10 ^3/uL Nucleated Red Blood Cells 0.0 % Sodium Level 137 136-145 mmol/L Potassium Level 3.9 3.5-5.1 mmol/L Chloride Level 107 98-107 mmol/L Carbon Dioxide Level 20 20-31 mmol/L Anion Gap 10 5-15 Blood Urea Nitrogen 17 9-23 mg/dL Creatinine 0.61 0.550-1.02 mg/dL Glomerular Filtration Rate Calc 115 >90 mL/min BUN/Creatinine Ratio 27.9 H 10.0-20.0 Serum Glucose 129 H 74-106 mg/dL Lactic Acid Level 1.8 0.4-2.0 mmol/L Calcium Level 8.0 L 8.7-10.4 mg/dL Total Bilirubin 0.4 0.2-1.0 mg/dL Aspartate Amino Transferase (AST) 39 13-40 U/L Alanine Aminotransferase (ALT) 18 7-40 U/L Alkaline Phosphatase 170 H 46-116 U/L Troponin I High Sensitivity < 3 L </=34 ng/L B-Type Natriuretic Peptide 26.79 0-100 pg/mL Total Protein 7.6 5.7-8.2 g/dL Albumin 2.6 L 3.2-4.8 g/dL PROCEDURE(s): CXRP - CHEST PORTABLE REASON: Volume overload ORDER NUMBER(s): [id number], ACCESSION NUMBER(s): [id number] CHEST RADIOGRAPH Indication: Volume overload Technique: Single frontal view of the chest was obtained COMPARISON: XY CHEST TWO VIEWS ROUTINE on DOS: 05/20/25, XY L RIB X RAY on DOS: 05/20/25 FINDINGS: Lines and Tubes: None Lungs: Clear Pleura: No effusion. No pneumothorax. Cardiomediastinal contours: Unremarkable Bones: Unremarkable IMPRESSION: 1. No acute disease. SEPSIS Sepsis Screen Date sepsis recognized/suspect: Jun 27, 2025 Time Sepsis recognized/suspect: 2155 Recent Procedure: No On Antibiotic Therapy: No Respiratory Rate >20: No Heart Rate >90: Yes Temp<36 C (96.8 F) or >38.3 C: No SBP <90 or MAP <65 mmHG: No New Acute Mental Status Change: No Is the patient on CPAP, BIPAP,: No Physician Orders Admit (06/28/25 08:11) Code Status (06/28/25 08:11) Ondansetron Hcl (Zofran) (06/28/25 08:15) Complete Blood Count (06/29/25 04:00) Comprehensive Metabolic Panel (06/29/25 04:00) Cardiac Diet-2gna,Lofat,Lochol (06/28/25 Breakfast) Condition: Fair (06/28/25 08:11) Morphine Sulfate Injection (06/28/25 08:15) Abdomen Complete Sonogram (06/28/25 08:11) Vital Signs Date Time Temp Pulse Resp B/P (MAP) Pulse Ox O2 Delivery O2 Flow Rate FiO2 06/28/25 06:37 98.1 85 17 129/84 (99) 100 98.1 06/28/25 05:55 98 Room Air* 0 21 06/28/25 03:16 98.2 93 17 111/82 (92) 100 98.2 06/28/25 02:50 135/105 Laboratory Tests Test 06/27/25 23:34 Lactic Acid Level 1.8 mmol/L (0.4-2.0) White Blood Count 3.3 10^3/uL (4.4-10.8) L Medications Medications Dose Ordered Sig/Dom Route Start Time Stop Time Status Last Admin Dose Admin Acetaminophen/ Hydrocodone Bitart 1 tab ONCE ONCE PO 06/28/25 03:00 06/28/25 03:01 DC 06/28/25 04:18 1 TAB Albumin Human 100 ml @ 100 mls/hr ONCE ONCE IV 06/28/25 07:15 06/28/25 08:14 DC 06/28/25 08:00 100 MLS/HR Furosemide 60 mg ONCE ONCE IV 06/27/25 23:30 06/27/25 23:31 DC 06/28/25 02:50 60 MG Assessment/Plan Assessment/Plan # intractable abdominal pain # acute decompensated liver failure with ascites # hx alcohol abuse Admit to medical-surgical unit Ultrasound of abdomen to evaluate ascites for possible paracentesis Continue spironolactone and Lasix Lactulose prn # anemia, likely secondary to cirrhosis Type and screen Monitor H&H Transfuse 1 unit PRBC for hemoglobin less than seven FOBT if positive consult GI PPI # hypoalbuminemia with chronic liver dysfunction and fluid overload Monitor IV albumin if performing large-volume paracentesis # marijuana Marijuana Cessation counseled Medical plan discussed with patient Plan discussed with: Patient My Orders Orders - PELON CRAVEN Procedure Category Date Status Time Admit ADMIT 06/28/25 Verified 08:11 Code Status CODE 06/28/25 Verified 08:11 Ondansetron Hcl PHA 06/28/25 Verified (Zofran) 08:15 Complete Blood Count LAB 06/29/25 Verified 04:00 Comprehensive LAB 06/29/25 Verified Metabolic Panel 04:00 Cardiac DIET 06/28/25 Verified Diet-2gna,Lofat,Lochol Breakfast Condition: Fair JONATHAN 06/28/25 Verified 08:11 Morphine Sulfate PHA 06/28/25 Verified Injection 08:15 Abdomen Complete US 06/28/25 Verified Sonogram 08:11 Date of Service: Jun 28, 2025 Billing Provider: JUAT,PELON C PROCUREMENT PROFESSIONAL Common Visit Codes: [id number] INP/OBS CARE (HIGH) PELON CRAVEN PROCUREMENT PROFESSIONAL Jun 28, 2025 09:01
[2025-06-28 09:25] LABS: Hematocrit 23.4 % (36.0-46.0); Hemoglobin 7.8 g/dL (12.2-16.2)
[2025-06-28 16:08] VITALS: BP 127/83; PULSE 70; RESP 18; TEMP 97.7; O2SAT 100
[2025-06-28 17:00] VITALS: BP 127/83; PULSE 72; RESP 18; TEMP 97.7; O2SAT 100
[2025-06-28 20:00] VITALS: PULSE 88; RESP 17; O2SAT 99
[2025-06-28 20:48] VITALS: BP 114/74; PULSE 88; RESP 17; TEMP 98.3; O2SAT 100
[2025-06-28] MEDS: MORPHINE SULFATE INJ 2 MG/ml SYRG ONE (22:55)
[2025-06-29 01:20] VITALS: BP 111/71; PULSE 96; RESP 16; TEMP 98.8; O2SAT 99
[2025-06-29 05:00] VITALS: BP 112/74; PULSE 95; RESP 18; TEMP 98.3; O2SAT 98
[2025-06-29] MEDS: MORPHINE SULFATE INJ 2 MG/ml SYRG ONE ×2 (05:46→14:17)
[2025-06-29 06:26] LABS: Hemoglobin 7.8 g/dL (12.2-16.2); Nucleated Red Blood Cells % 0.1 %
[2025-06-29 06:30] LABS: Hematocrit 22.5 % (36.0-46.0); Mean Corpuscular Hemoglobin 31.0 pg (28.0-32.0); Mean Corpuscular Volume 89.1 fL (80.0-100.0)
[2025-06-29 06:41] LABS: Alanine Aminotransferase 15 U/L (7-40); Anion Gap 8 (5-15); BUN/Creatinine Ratio 26.3 (10.0-20.0); Blood Urea Nitrogen 20 mg/dL (9-23); Carbon Dioxide 22 mmol/L (20-31); Chloride 106 mmol/L (98-107); Glucose 87 mg/dL (74-106); Potassium 4.5 mmol/L (3.5-5.1); Sodium 136 mmol/L (136-145); Total Protein 6.9 g/dL (5.7-8.2)
[2025-06-29 06:42] LABS: Albumin 2.4 g/dL (3.2-4.8); Alkaline Phosphatase 126 U/L (46-116); Bilirubin, Total 0.5 mg/dL (0.2-1.0); Calcium 8.1 mg/dL (8.7-10.4)
[2025-06-29 08:41] VITALS: BP 104/57; PULSE 91; RESP 16; TEMP 97.3; O2SAT 95
[2025-06-29] MEDS ORDERED: VANCOMYCIN PER PHARMACY 0 MG IV SCH (09:15)
[2025-06-29] MEDS ORDERED: VANCOMYCIN 1GM/250ML KIT 250 ML IV ONE (09:15)
--- NOTE | 2025-06-29 10:32 | DVH ---
INDICATION: cellulitis/Abscess/Fascitis COMPARISON: US LT LOWER DVT on DOS: 04/26/25 TECHNIQUE: CT of the left was performed without contrast. Volume transverse images were obtained and reconstructed in multiple planes using bone and soft tissue algorithms. CONTRAST: None Radiation Dose Information: CT Dose: CTDI volume is 7.8 mGy. Dose-length product is 468 mGy*cm FINDINGS: No acute fracture or dislocation. Diffuse soft tissue swelling most pronounced dorsal of the foot. No loculated collection. No soft tissue gas. No radiopaque foreign bodies. Mild degenerative changes of the left foot. IMPRESSION: Diffuse soft swelling most pronounced in dorsum of the left foot suggestive of cellulitis. No definite abscess although it's evaluation is limited on noncontrast CT. No soft tissue gas. All CT scans at this medical facility are performed using dose modulation techniques as appropriate to a performed exam including the following: Automated exposure control was utilized; adjustment of the MA and/or KV according to patient size; and use of iterative reconstruction technique.
[2025-06-29] MEDS ORDERED: VANCOMYCIN 1.25GM/250ML 250 ML IV SCH (11:00)
--- NOTE | 2025-06-29 11:00 | DVH ---
CLINICAL HISTORY: rule out dvt TECHNIQUE: Color and duplex doppler imagine of the bilateral lower extremity veins was performed. Vessel compression and augmentation if possible was also performed. COMPARISON: US LT LOWER DVT on DOS: 04/26/25, US LT LOWER DVT on DOS: 06/19/24 FINDINGS: Right Lower Extremity: Right common femoral vein: Normal compressibility and flow. Right superficial femoral vein: Normal compressibility and flow. Right popliteal vein: Normal compressibility and flow. Left Lower Extremity: Left common femoral vein: Normal compressibility and flow. Left superficial femoral vein: Normal compressibility and flow. Left popliteal vein: Normal compressibility and flow. IMPRESSION: NO SONOGRAPHIC EVIDENCE FOR DEEP VENOUS THROMBOSIS IN THE BILATERAL LOWER EXTREMITY VEINS.
--- NOTE | 2025-06-29 12:26 | DVHPN2 ---
Progress Note Date Seen: Jun 29, 2025 Medical Necessity Reason Pt with a Central, PICC or Fol: No Subjective Review of Systems Patient is 39 years old man with a past medical history of alcoholic cirrhosis of liver, splenomegaly, umbilical hernia, nephrolithiasis, ovarian cyst came with a complaint abdominal pain bolus 3 days, as per patient she has been having diffuse abdominal pain, 8/10, constant, no aggravating or relieving factor for 3 days. patient also reported bilateral leg swelling for last 4 days and leg pain is patient with the left leg for last 2 months,: Stent, sharp in nature. Patient denied any diarrhea/constipation, fever/chest pain and shortness of breaths. Patient reported here wanting to brought him soon before and also had passenger 5 times before in [facility]. Initial lab workup revealed leukopenia with WBC 3.3, moderately severe anemia with hemoglobin 7.8, platelet 145, alkaline phosphatase 126, albumin 2.6. CXR no acute disease. Ultrasound of the liver- There is mild ascites. CT scan of the left lower extremity Diffuse soft swelling most pronounced in dorsum of the left foot suggestive of cellulitis. Ultrasound of the bilateral lower extremity negative for DVT. Panel revealed serum iron 30, ferritin 33.6. PMH-alcoholic cirrhosis of liver, splenomegaly, umbilical hernia, nephrolithiasis, ovarian cyst PSH- denied Allergy- NKDA Personal History/ Social History- ex alcoholic last drinking was in March, denies smoking, marijuana use last in March, Cardiovascular- deny acute chest pain or shortness of breath or cough or palpitation Respiratory denies cough or short of breath or wheezing Gastrointestinal- abdominal distention, pain abdomen, nausea or vomiting Musculoskeletal-denies acute joint swelling or tenderness or redness Extremities-bilateral lower extremity swelling and pain, especially in the left leg pain Neurological- denies acute dysarthria, dysphagia, change in vision Psychiatry- denies depression or SI or HI Skin- denies acute rash or purpura Patient was seen today at bedside, labs and chart reviewed. Patient reports ongoing abdominal pain and leg pain.Ultrasound of the liver- There is mild ascites. CT scan of the left lower extremity Diffuse soft swelling most pronounced in dorsum of the left foot suggestive of cellulitis. Ultrasound of the bilateral lower extremity negative for DVT. Ordered paracentesis by IR. As prior ascites is too small to do paracentesis. Ordered doxycycline for cellulitis and patient is on ceftriaxone for possible SBP. Ordered blood culture. Ordered ferrous sulfate for iron-deficiency anemia. Objective vital signs Vital Sign Date Time Temp Pulse Resp B/P (MAP) Pulse Ox O2 Delivery O2 Flow Rate FiO2 06/29/25 11:34 104/65 06/29/25 08:41 97.3 91 16 95 97.3 06/28/25 20:00 Room Air* 0 21 Total Intake and Output 06/28/25 06/28/25 06/29/25 15:00 23:00 07:00 Intake Total 100 ml 0 ml 800 ml Balance 100 ml 0 ml 800 ml medications Current Medications Medications Dose Ordered Sig/Dom Route Start Time Stop Time Status Last Admin Dose Admin Ondansetron HCl 4 mg Q4HP PRN IV 06/28/25 08:15 06/28/25 15:01 4 MG Morphine Sulfate 2 mg Q4HPRN PRN IV 06/28/25 08:15 06/29/25 05:38 2 MG Pantoprazole Sodium 40 mg DAILY IV 06/28/25 10:00 06/29/25 11:33 40 MG Furosemide 40 mg DAILY PO 06/28/25 10:00 06/29/25 11:34 40 MG Spironolactone 100 mg DAILY PO 06/28/25 10:00 06/29/25 11:34 100 MG Lactulose 30 ml TIDPRN PRN PO 06/28/25 08:30 Ceftriaxone Sodium/Dextrose 50 ml @ 50 mls/hr DAILY IV 06/29/25 09:15 06/29/25 11:33 50 MLS/HR Vancomycin HCl 0 ml @ 0 mls/hr PER PHARMACY IV 06/29/25 09:15 Vancomycin HCl 250 ml @ 200 mls/hr Q12H IV 06/29/25 11:00 Examination General examination- awake, alertm, oriented HEENT- PEERLA, no acute nasal discharge Cardiovascular- S1-S2 audible, rate and rhythm regular, no murmur Respiratory- CTAB, no wheeze or rhonchi Gastrointestinal-distended abdomen with mild tenderness diffuse, bowel sound+. Musculoskeletal-no acute joint swelling or tenderness or redness Lower extremity- bilateral leg swelling, tenderness on the medial aspect of the left leg with some skin color changes and also in the medial aspect of the left thigh Neurological- cranial nerves intact, no acute dysarthria or dysphagia Psychiatry- denies depression or SI or HI Skin- no acute rash or purpura laboratory and microbiology Laboratory Tests 06/29/25 06:00 Test 06/29/25 06:00 Range/Units Serum Glucose 87 74-106 mg/dL Problem List/Assessment/Plan Problem List/Assessment/Plan Assessment and plan # acute decompensated liver failure # pancytopenia likely due to portal hypertension # ascites # bilateral leg swelling likely due to above # alcoholic cirrhosis of liver # suspected SBP # MELD 8 -Ultrasound of the liver- There is mild ascites. - CT scan of the left lower extremity Diffuse soft swelling most pronounced in dorsum of the left foot suggestive of cellulitis. - Ultrasound of the bilateral lower extremity negative for DVT. -continue Lasix 40 mg p.o. daily -continue spironolactone 100 mg p.o. daily -lactulose 30 mL p.o. daily -continue ceftriaxone 2 g IV daily -ordered paracentesis -monitor vitals # pancytopenia likely due to portal hypertension # severe iron-deficiency anemia # leukopenia # anemia # thrombocytopenia -ordered iron panel, serum creatinine -PRBC blood transfusion if hemoglobin < 7 -ordered iron supplement # Cellulitis of the lower extremity - CT scan of the left lower extremity Diffuse soft swelling most pronounced in dorsum of the left foot suggestive of cellulitis. -continue ceftriaxone and doxycycline as prescribed -monitor clinically -pending MRSA screening -pending blood culture # umbilical hernia -continue current conservative management -follow up outpatient with the surgeon #Ovarian cyst -follow up outpatient with the primary care physician # nephrolithiasis -follow up outpatient with the primary care physician Diet-regular diet Goals of care, Code status full code ; discussed with >15 minutes PUD prophylaxis: Pantoprazole DVT prophylaxis: Lovenox Plan discussed with Dr. Hearn , nursing staff, Total time spent on patient evaluation, chart review, assessment and plan, discussion discussion >35 minutes Plan discussed with: Patient, Other (RN) My Orders My Orders Orders - MELANIA MILLER RESIDENT Procedure Category Date Status Time Left Lower Extremity CT 06/29/25 Resulted W/O Con 09:08 Ceftriaxone 2gm/50ml PHA 06/29/25 In Process (Rocephin 2gm/50ml) 09:15 Vancomycin Per PHA 06/29/25 In Process Pharmacy 09:15 Vancomycin PHA 06/29/25 In Process 1.25gm/250ml 11:00 Creatinine LAB 06/30/25 Verified 04:00 Complete Blood Count LAB 06/30/25 Verified 04:00 Vancomycin Per JONATHAN 06/30/25 In Process Pharmacy Protoc 23:00 Vancomycin,Trough LAB 06/30/25 Verified 22:00 * Radiologist Consult CONS 06/29/25 Transmitted 11:55 Ferritin LAB 06/29/25 Logged 11:57 Iron LAB 06/29/25 Logged 11:57 Stool Occult Blood LAB 06/29/25 Logged 11:57 Blood Culture KINJAL 06/29/25 Logged 11:58 Mrsa Screen KINJAL 06/29/25 Logged 11:58 Drug Screen LAB 06/29/25 Logged 12:00 Blood Alcohol LAB 06/29/25 Logged 12:00 Date of Service: Jun 29, 2025 Billing Provider: KARISSA HEARN MD Common Visit Codes: [id number] INP/OBS CARE(HIGH) MELANIA MILLER RESIDENT Jun 29, 2025 12:26
[2025-06-29 13:00] VITALS: BP 106/74; PULSE 91; RESP 16; TEMP 97.8; O2SAT 98
[2025-06-29 13:12] LABS: INR 1.09 (0.9-1.15); Partial Thromboplastin Time 30.7 SEC (24.5-34.5); Prothrombin Time 11.5 sec (9.3-11.8)
[2025-06-29] MEDS: VANCOMYCIN 1GM/250ML KIT 250 ML IV SCH (14:38)
[2025-06-29] MEDS: FUROSEMIDE 40 MG/4 ML VIAL IV SCH (16:15)
[2025-06-29] MEDS: DOXYCYCLINE 100MG/100ML 100 ML IV SCH (16:24)
[2025-06-29] MEDS: LACTULOSE 20Gm/30ML SOLN PO SCH (16:30)
[2025-06-29 16:38] VITALS: BP 113/67; PULSE 97; RESP 20; TEMP 97.9; O2SAT 97
[2025-06-29] MEDS: IRON SUCROSE COMPLEX 110 ML IV SCH (18:37)
[2025-06-29 21:00] VITALS: BP 118/66; PULSE 90; RESP 17; TEMP 98.6; O2SAT 97
[2025-06-30] VITALS (8 sets, daily range): BP systolic 100–136; BP diastolic 50–94; PULSE 71–96; RESP 16–19; TEMP 96.4–98.8; O2SAT 94–98
[2025-06-30 05:45] LABS: Hematocrit 21.5 % (36.0-46.0); Hemoglobin 7.4 g/dL (12.2-16.2); Mean Corpuscular Hemoglobin 30.1 pg (28.0-32.0); Mean Corpuscular Volume 87.2 fL (80.0-100.0); Nucleated Red Blood Cells % 0.1 %
[2025-06-30 06:00] LABS: Alanine Aminotransferase 13 U/L (7-40); Anion Gap 9 (5-15); BUN/Creatinine Ratio 24.6 (10.0-20.0); Bilirubin, Total 0.4 mg/dL (0.2-1.0); Blood Urea Nitrogen 16 mg/dL (9-23); Carbon Dioxide 23 mmol/L (20-31); Chloride 106 mmol/L (98-107); Glucose 88 mg/dL (74-106); Magnesium 1.8 mg/dL (1.6-2.6); Potassium 4.3 mmol/L (3.5-5.1); Sodium 138 mmol/L (136-145); Total Protein 6.6 g/dL (5.7-8.2)
[2025-06-30 06:12] LABS: Albumin 2.3 g/dL (3.2-4.8); Alkaline Phosphatase 120 U/L (46-116); Calcium 8.1 mg/dL (8.7-10.4)
[2025-06-30] MEDS: MAGNESIUM SULFATE 1GM/100ML 100 ML IV ONE (07:00)
[2025-06-30] MEDS: FERROUS SULFATE 325mg EC TAB PO SCH (10:00)
--- NOTE | 2025-06-30 12:23 | DVHPN2 ---
Progress Note Date Seen: Jun 30, 2025 Medical Necessity Reason Pt with a Central, PICC or Fol: No Subjective Review of Systems Patient is 39 years old man with a past medical history of alcoholic cirrhosis of liver, splenomegaly, umbilical hernia, nephrolithiasis, ovarian cyst came with a complaint abdominal pain bolus 3 days, as per patient she has been having diffuse abdominal pain, 8/10, constant, no aggravating or relieving factor for 3 days. patient also reported bilateral leg swelling for last 4 days and leg pain is patient with the left leg for last 2 months,: Stent, sharp in nature. Patient denied any diarrhea/constipation, fever/chest pain and shortness of breaths. Patient reported here wanting to brought him soon before and also had passenger 5 times before in [facility]. Initial lab workup revealed leukopenia with WBC 3.3, moderately severe anemia with hemoglobin 7.8, platelet 145, alkaline phosphatase 126, albumin 2.6. CXR no acute disease. Ultrasound of the liver- There is mild ascites. CT scan of the left lower extremity Diffuse soft swelling most pronounced in dorsum of the left foot suggestive of cellulitis. Ultrasound of the bilateral lower extremity negative for DVT. Panel revealed serum iron 30, ferritin 33.6. PMH-alcoholic cirrhosis of liver, splenomegaly, umbilical hernia, nephrolithiasis, ovarian cyst PSH- denied Allergy- NKDA Personal History/ Social History- ex alcoholic last drinking was in March, denies smoking, marijuana use last in March, Cardiovascular- deny acute chest pain or shortness of breath or cough or palpitation Respiratory denies cough or short of breath or wheezing Gastrointestinal- abdominal distention, pain abdomen, nausea or vomiting Musculoskeletal-denies acute joint swelling or tenderness or redness Extremities-bilateral lower extremity swelling and pain, especially in the left leg pain Neurological- denies acute dysarthria, dysphagia, change in vision Psychiatry- denies depression or SI or HI Skin- denies acute rash or purpura Patient was seen today at bedside, labs and chart reviewed. MRSA screen negative. Blood culture no growth so far.. Because of the small ascites IR is not able to do paracentesis. Leg swelling improving. Patient is on doxycycline and ceftriaxone. Tolerating well. Objective vital signs Vital Sign Date Time Temp Pulse Resp B/P (MAP) Pulse Ox O2 Delivery O2 Flow Rate FiO2 06/30/25 09:00 98.3 79 18 109/72 (84) 96 98.3 06/29/25 20:00 Room Air* 0 21 Total Intake and Output 06/29/25 06/29/25 06/30/25 15:00 23:00 07:00 Intake Total 500 ml 520 ml Balance 500 ml 520 ml medications Current Medications Medications Dose Ordered Sig/Dom Route Start Time Stop Time Status Last Admin Dose Admin Ondansetron HCl 4 mg Q4HP PRN IV 06/28/25 08:15 06/28/25 15:01 4 MG Morphine Sulfate 2 mg Q4HPRN PRN IV 06/28/25 08:15 06/30/25 04:34 2 MG Pantoprazole Sodium 40 mg DAILY IV 06/28/25 10:00 06/29/25 11:33 40 MG Spironolactone 100 mg DAILY PO 06/28/25 10:00 06/29/25 11:34 100 MG Ceftriaxone Sodium/Dextrose 50 ml @ 50 mls/hr DAILY IV 06/29/25 09:15 06/29/25 11:33 50 MLS/HR Vancomycin HCl 250 ml @ 200 mls/hr Q12H IV 06/29/25 11:00 Cancel Doxycycline Hyclate 100 ml @ 50 mls/hr Q12H IV 06/29/25 16:15 06/30/25 04:27 50 MLS/HR Furosemide 40 mg DAILY IV 06/29/25 16:15 Iron Sucrose 110 ml @ 110 mls/hr DAILY@1200 IV 06/29/25 16:30 06/30/25 16:29 06/29/25 18:37 110 MLS/HR Ferrous Sulfate 325 mg DAILY PO 06/30/25 10:00 Lactulose 30 ml DAILY PO 06/29/25 16:30 Examination General examination- awake, alertm, oriented HEENT- PEERLA, no acute nasal discharge Cardiovascular- S1-S2 audible, rate and rhythm regular, no murmur Respiratory- CTAB, no wheeze or rhonchi Gastrointestinal-distended abdomen with mild tenderness diffuse, bowel sound+. Musculoskeletal-no acute joint swelling or tenderness or redness Lower extremity- bilateral leg swelling, tenderness on the medial aspect of the left leg with some skin color changes and also in the medial aspect of the left thigh Neurological- cranial nerves intact, no acute dysarthria or dysphagia Psychiatry- denies depression or SI or HI Skin- no acute rash or purpura laboratory and microbiology Laboratory Tests 06/30/25 05:00 Test 06/30/25 05:00 Range/Units Serum Glucose 88 74-106 mg/dL Problem List/Assessment/Plan Problem List/Assessment/Plan Assessment and plan # acute decompensated liver failure # pancytopenia likely due to portal hypertension # ascites # bilateral leg swelling likely due to above # alcoholic cirrhosis of liver # suspected SBP # MELD 8 -Ultrasound of the liver- There is mild ascites. - CT scan of the left lower extremity Diffuse soft swelling most pronounced in dorsum of the left foot suggestive of cellulitis. - Ultrasound of the bilateral lower extremity negative for DVT. -continue Lasix 40 mg p.o. daily -continue spironolactone 100 mg p.o. daily -lactulose 30 mL p.o. daily -continue ceftriaxone 2 g IV daily -MRSA screen negative. Blood culture no growth so far.. Because of the small ascites IR is not able to do paracentesis -monitor vitals -strict I&O -fluid restriction 1200 mL per 24 hours # pancytopenia likely due to portal hypertension # severe iron-deficiency anemia # leukopenia # anemia # thrombocytopenia -ordered iron panel, serum creatinine -PRBC blood transfusion if hemoglobin < 7 -ordered iron supplement # Cellulitis of the lower extremity - CT scan of the left lower extremity Diffuse soft swelling most pronounced in dorsum of the left foot suggestive of cellulitis. -continue ceftriaxone and doxycycline as prescribed -monitor clinically -MRSA screen negative. Blood culture no growth so far.. # umbilical hernia -continue current conservative management -follow up outpatient with the surgeon #Ovarian cyst -follow up outpatient with the primary care physician # nephrolithiasis -follow up outpatient with the primary care physician # protein calorie malnutrition -ordered dietary consult Diet-regular diet Goals of care, Code status full code ; discussed with >15 minutes PUD prophylaxis: Pantoprazole DVT prophylaxis: Lovenox Plan discussed with Dr. Hearn , nursing staff, RN Total time spent on patient evaluation, chart review, assessment and plan, discussion discussion >35 minutes Plan discussed with: Patient, Other (RN) My Orders My Orders Orders - MELANIA MILLER Procedure Category Date Status Time Doxycycline PHA 06/29/25 In Process 100mg/100ml 16:15 Furosemide Injection PHA 06/29/25 In Process (Lasix Injection) 16:15 Iron Sucrose Complex PHA 06/29/25 In Process (Venofer) 16:30 Ferrous Sulfate Tablet PHA 06/30/25 In Process 10:00 Lactulose Oral PHA 06/29/25 In Process 16:30 Strict I & O JONATHAN 06/30/25 In Process 06:51 Date of Service: Jun 30, 2025 Billing Provider: KARISSA HEARN MD Common Visit Codes: [id number] INP/OBS CARE(HIGH) MELANIA MILLER RESIDENT Jun 30, 2025 12:23
[2025-06-30] MEDS: FUROSEMIDE 20 MG/2 ML VIAL IV ONE (12:30)
[2025-06-30] MEDS: HYDROcodone-ACET 5/325MG TAB PO ONE (22:30)
[2025-07-01 01:00] VITALS: BP_SYST 107; BP_SYST 138; BP_DIAS 66; BP_DIAS 82; PULSE 80; PULSE 94; RESP 18; RESP 20; TEMP 97.3; TEMP 97.5; O2SAT 95
[2025-07-01 05:00] VITALS: BP 112/73; PULSE 92; RESP 18; TEMP 97.4; O2SAT 96
[2025-07-01 06:29] LABS: Hemoglobin 7.6 g/dL (12.2-16.2)
[2025-07-01 06:39] LABS: Hematocrit 21.9 % (36.0-46.0); Mean Corpuscular Hemoglobin 32.0 pg (28.0-32.0); Mean Corpuscular Volume 92.8 fL (80.0-100.0); Nucleated Red Blood Cells % 0.2 %
[2025-07-01 06:49] LABS: Alanine Aminotransferase 12 U/L (7-40); Anion Gap 9 (5-15); BUN/Creatinine Ratio 26.9 (10.0-20.0); Blood Urea Nitrogen 14 mg/dL (9-23); Carbon Dioxide 23 mmol/L (20-31); Magnesium 1.8 mg/dL (1.6-2.6); Potassium 3.6 mmol/L (3.5-5.1); Sodium 140 mmol/L (136-145); Total Protein 6.7 g/dL (5.7-8.2)
[2025-07-01 06:54] LABS: Albumin 2.3 g/dL (3.2-4.8); Alkaline Phosphatase 139 U/L (46-116); Bilirubin, Total 0.3 mg/dL (0.2-1.0); Calcium 8.1 mg/dL (8.7-10.4); Chloride 108 mmol/L (98-107); Glucose 106 mg/dL (74-106)
[2025-07-01 08:00] VITALS: PULSE 84; RESP 16; O2SAT 97
[2025-07-01 09:00] VITALS: BP 118/82; PULSE 84; RESP 16; TEMP 98.4; O2SAT 97
--- NOTE | 2025-07-01 10:23 | DVHDSRES ---
Discharge Summary Date of Admission Resident Creating Document: MELANIA MILLER RESIDENT Jun 28, 2025 at 08:11 Date of Discharge: Jul 01, 2025 Admitting Diagnosis Acute decompensated liver failure Suspected cellulitis of the leg Labs/Diagnostic Data: Laboratory Results Test 07/01/25 05:10 06/30/25 09:06 06/29/25 13:50 06/29/25 12:21 White Blood Count 3.5 10^3/uL (4.4-10.8) Red Blood Count 2.36 10^6/uL (4.0-5.20) Hemoglobin 7.6 g/dL (12.2-16.2) Hematocrit 21.9 % (36.0-46.0) Mean Corpuscular Volume 92.8 fL (80.0-100.0) Mean Corpuscular Hemoglobin 32.0 pg (28.0-32.0) Mean Corpuscular Hemoglobin Concent 34.5 g/dL (32.0-36.0) Red Cell Distribution Width 16.1 % (11.8-14.3) Platelet Count 146 10^3/uL (140-450) Mean Platelet Volume 7.8 fL (6.9-10.8) Neutrophils (%) (Auto) 67.3 % (37.0-80.0) Lymphocytes (%) (Auto) 26.7 % (10.0-50.0) Monocytes (%) (Auto) 4.0 % (0.0-12.0) Eosinophils (%) (Auto) 1.4 % (0.0-7.0) Basophils (%) (Auto) 0.6 % (0.0-2.0) Neutrophils # (Auto) 2.4 10 ^3/uL (1.6-8.6) Lymphocytes # (Auto) 0.9 10 ^3/uL (0.4-5.4) Monocytes # (Auto) 0.1 10 ^3/uL (0-1.3) Eosinophils # (Auto) 0 10 ^3/uL (0-0.8) Basophils # (Auto) 0 10 ^3/uL (0-0.2) Nucleated Red Blood Cells 0.2 % Sodium Level 140 mmol/L (136-145) Potassium Level 3.6 mmol/L (3.5-5.1) Chloride Level 108 mmol/L (98-107) Carbon Dioxide Level 23 mmol/L (20-31) Anion Gap 9 (5-15) Blood Urea Nitrogen 14 mg/dL (9-23) Creatinine 0.52 mg/dL (0.550-1.02) Glomerular Filtration Rate Calc 120 mL/min (>90) BUN/Creatinine Ratio 26.9 (10.0-20.0) Serum Glucose 106 mg/dL (74-106) Calcium Level 8.1 mg/dL (8.7-10.4) Magnesium Level 1.8 mg/dL (1.6-2.6) Total Bilirubin 0.3 mg/dL (0.2-1.0) Aspartate Amino Transferase (AST) 28 U/L (13-40) Alanine Aminotransferase (ALT) 12 U/L (7-40) Alkaline Phosphatase 139 U/L (46-116) Total Protein 6.7 g/dL (5.7-8.2) Albumin 2.3 g/dL (3.2-4.8) Stool Occult Blood Negative (Negative) Stool Occult Blood Sample #3 (Negative) Plasma/Serum Blood Alcohol < 3.0 mg/dL (<10) Prothrombin Time 11.5 sec (9.3-11.8) Prothrombin Time INR 1.09 (0.9-1.15) Activated Partial Thromboplast Time 30.7 SEC (24.5-34.5) Iron Level 30 ug/dL (50-170) Ferritin 33.6 ng/mL (10-291) Test 06/28/25 09:13 06/28/25 00:44 06/27/25 23:34 Ammonia < 10 umol/L (11-32) Urine Color Yellow (Yellow) Urine Clarity Turbid (Clear) Urine pH 6.5 (5.0-9.0) Urine Specific Sharps 1.030 (1.001-1.035) Urine Protein 3+ (Negative) Urine Ketones Negative (Negative) Urine Blood 2+ /uL (Negative) Urine Nitrite Negative (Negative) Urine Bilirubin Negative (Negative) Urine Urobilinogen 2 mg/dL (Negative) Urine Leukocyte Esterase Negative /uL (Negative) Urine RBC 14 /hpf (0 - 4) Urine Microscopic WBC 7 /HPF (0-5) Urine Squamous Epithelial Cells Few /hpf (<5) Urine Renal Epithelial Cells Few /hpf (None Seen) Urine Bacteria Few /hpf (None Seen) Urine Hyaline Casts Few /lpf (0 - 2) Urine Mucus Few (None Seen) Urine Yeast (Budding) Occasional /hpf (None Urine Glucose Normal mg/dL (Normal) Lactic Acid Level 1.8 mmol/L (0.4-2.0) Troponin I High Sensitivity < 3 ng/L (</=34) B-Type Natriuretic Peptide 26.79 pg/mL (0-100) Other Laboratory Tests 07/01/25 05:10 Brief Hx & Hospital Course: Patient is 39 years old man with a past medical history of alcoholic cirrhosis of liver, splenomegaly, umbilical hernia, nephrolithiasis, ovarian cyst came with a complaint abdominal pain bolus 3 days, as per patient she has been having diffuse abdominal pain, 8/10, constant, no aggravating or relieving factor for 3 days. patient also reported bilateral leg swelling for last 4 days and leg pain is patient with the left leg for last 2 months,: Stent, sharp in nature. Patient denied any diarrhea/constipation, fever/chest pain and shortness of breaths. Patient reported here wanting to brought him soon before and also had passenger [facility] times before in [facility]. Initial lab workup revealed leukopenia with WBC 3.3, moderately severe anemia with hemoglobin 7.8, platelet 145, alkaline phosphatase 126, albumin 2.6. CXR no acute disease. Ultrasound of the liver- There is mild ascites. CT scan of the left lower extremity Diffuse soft swelling most pronounced in dorsum of the left foot suggestive of cellulitis. Ultrasound of the bilateral lower extremity negative for DVT. Iron Panel revealed serum iron 30, ferritin 33.6. Patient was treated conservatively. Paracentesis was not done by IR due to mild ascites. Patient's symptoms improved. Blood culture no growth, MRSA screening negative. Patient's leg swelling and abdominal distention has improved. Patient's pain also improved. Patient is being discharged home with oral antibiotic doxycycline 100 mg p.o. b.i.d. for 10 days. Patient was hemodynamically stable on discharge. Patient was advised to follow up with the DC clinic and PCP. General examination- awake, alert, oriented HEENT- PEERLA, no acute nasal discharge Cardiovascular- S1-S2 audible, rate and rhythm regular, no murmur Respiratory- CTAB, no wheeze or rhonchi Gastrointestinal-distended abdomen with mild tenderness diffuse, bowel sound+. Musculoskeletal-no acute joint swelling or tenderness or redness Lower extremity- bilateral leg swelling, tenderness on the medial aspect of the left leg with some skin color changes and also in the medial aspect of the left thigh Neurological- cranial nerves intact, no acute dysarthria or dysphagia Psychiatry- denies depression or SI or HI Skin- no acute rash or purpura Patient was seen today at bedside, labs and chart reviewed. MRSA screen negative. Blood culture no growth so far.. Because of the small ascites IR is not able to do paracentesis. Leg swelling improving. Patient is on doxycycline and ceftriaxone. Tolerating well. Case discussed with dr Hearn Operations or Procedures [place] [id number] Ph: [phone] DIAGNOSTIC IMAGING Diagnostic Imaging Report : [id number] Signed PATIENT: MOLLY AJ ACCT: [id number] UNIT: [id number] : 1985 LOC: ER ROOM / BED: / AGE / SEX: 39 / F ADM STATUS: REG ER SERVICE 20 ORDERING PHYSICIAN: DARIUSZ LEVIN DO PROCEDURE(s): CXRP - CHEST PORTABLE REASON: Volume overload ORDER NUMBER(s): [id number], ACCESSION NUMBER(s): [id number] CHEST RADIOGRAPH Indication: Volume overload Technique: Single frontal view of the chest was obtained COMPARISON: XY CHEST TWO VIEWS ROUTINE on DOS: 05/20/25, XY L RIB X RAY on DOS: 05/20/25 FINDINGS: Lines and Tubes: None Lungs: Clear Pleura: No effusion. No pneumothorax. Cardiomediastinal contours: Unremarkable Bones: Unremarkable IMPRESSION: 1. No acute disease. ATED BY: SLAVA LABOY MD DICTATED DATE/TIME: 06/27/252343 SIGNED BY: SLAVA LABOY MD SIGNED DATE/TIME: 06/27/252343 CC: [address] [id number] Ph: [phone] DIAGNOSTIC IMAGING Diagnostic Imaging Report : [id number] Signed PATIENT: MOLLY AJ ACCT: [id number] UNIT: [id number] : 1985 LOC: OVERFLOW ROOM / BED: 1011-ER / A AGE / SEX: 39 / F ADM STATUS: ADM IN SERVICE 0811 ORDERING PHYSICIAN: PELON CRAVEN PROCEDURE(s): ABDL - ABDOMEN LIMITED REASON: Evaluate ascites ORDER NUMBER(s): [id number], ACCESSION NUMBER(s): [id number] US ABDOMEN LIMITED HISTORY: Evaluate ascites COMPARISON: US ABDOMEN LIMITED on DOS: 05/20/25, US ABDOMEN LIMITED on DOS: 05/06/25, US PELVIC on DOS: 04/25/25 TECHNIQUE: Transverse and longitudinal sonographic images were obtained of all four quadrants of the abdomen and pelvis. FINDINGS: IMPRESSION: There is mild ascites. ATED BY: JOSUE GREEN MD DICTATED DATE/TIME: 06/28/25850 SIGNED BY: JOSUE GREEN MD SIGNED DATE/TIME: 06/28/25850 CC: [place] [id number] Ph: [phone] DIAGNOSTIC IMAGING Diagnostic Imaging Report : [id number] Signed PATIENT: MOLLY AJ ACCT: [id number] UNIT: [id number] : 1985 LOC: [facility] ROOM / BED: 0244A / 3 AGE / SEX: 39 / F ADM STATUS: ADM IN SERVICE 0908 ORDERING PHYSICIAN: MELANIA MILLER RESIDENT PROCEDURE(s): LLEX - LEFT LOWER EXTREMITY W/O CON REASON: cellulitis/Abscess/Fascitis ORDER NUMBER(s): [id number], ACCESSION NUMBER(s): [id number] INDICATION: cellulitis/Abscess/Fascitis COMPARISON: US LT LOWER DVT on DOS: 04/26/25 TECHNIQUE: CT of the left was performed without contrast. Volume transverse images were obtained and reconstructed in multiple planes using bone and soft tissue algorithms. CONTRAST: None Radiation Dose Information: CT Dose: CTDI volume is 7.8 mGy. Dose-length product is 468 mGy*cm FINDINGS: No acute fracture or dislocation. Diffuse soft tissue swelling most pronounced dorsal of the foot. No loculated collection. No soft tissue gas. No radiopaque foreign bodies. Mild degenerative changes of the left foot. IMPRESSION: Diffuse soft swelling most pronounced in dorsum of the left foot suggestive of cellulitis. No definite abscess although it's evaluation is limited on noncontrast CT. No soft tissue gas. All CT scans at this medical facility are performed using dose modulation techniques as appropriate to a performed exam including the following: Automated exposure control was utilized; adjustment of the MA and/or KV according to patient size; and use of iterative reconstruction technique. ATED BY: KELBY NG MD DICTATED DATE/TIME: 06/29/25 102 SIGNED BY: KELBY NG MD SIGNED DATE/TIME: 06/29/25 102 CC: [place] [id number] Ph: [phone] DIAGNOSTIC IMAGING Diagnostic Imaging Report : [id number] Signed PATIENT: MOLLY AJ ACCT: [id number] UNIT: [id number] : 1985 LOC: [facility] ROOM / BED: [facility]24[facility] / 3 AGE / SEX: 39 / F ADM STATUS: ADM IN SERVICE 7 ORDERING PHYSICIAN: KENNEDY MACHADO RESIDENT PROCEDURE(s): BLDVT - BiLat Lower DVT REASON: rule out dvt ORDER NUMBER(s): [id number], ACCESSION NUMBER(s): [id number] CLINICAL HISTORY: rule out dvt TECHNIQUE: Color and duplex doppler imagine of the bilateral lower extremity veins was performed. Vessel compression and augmentation if possible was also performed. COMPARISON: US LT LOWER DVT on DOS: 04/26/25, US LT LOWER DVT on DOS: 06/19/24 FINDINGS: Right Lower Extremity: Right common femoral vein: Normal compressibility and flow. Right superficial femoral vein: Normal compressibility and flow. Right popliteal vein: Normal compressibility and flow. Left Lower Extremity: Left common femoral vein: Normal compressibility and flow. Left superficial femoral vein: Normal compressibility and flow. Left popliteal vein: Normal compressibility and flow. IMPRESSION: NO SONOGRAPHIC EVIDENCE FOR DEEP VENOUS THROMBOSIS IN THE BILATERAL LOWER EXTREMITY VEINS. ATED BY: NESSA VARGAS MD DICTATED DATE/TIME: 06/29/25 105 SIGNED BY: NESSA VARGAS MD SIGNED DATE/TIME: 06/29/25 105 CC: Condition at Discharge: Stable Final Diagnosis/Problems List # acute decompensated liver failure # pancytopenia likely due to portal hypertension # ascites # bilateral leg swelling likely due to above # alcoholic cirrhosis of liver # suspected SBP # pancytopenia likely due to portal hypertension # severe iron-deficiency anemia # leukopenia # anemia # thrombocytopenia # Cellulitis of the lower extremity # umbilical hernia #Ovarian cyst # nephrolithiasis # protein calorie malnutrition Discharge Disposition: Home Discharge Instruct/Medications Diet: Regular Activity: Light activity Follow Up/Referral: Discharge clinic 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 Medications: See prescriptions above Scheduled Diphenhydramine Hcl (Benadryl Capsule), 25 MG PO PRN, (Reported) Doxycycline (Monohydrate) (Doxycycline), 100 MG PO BID Ferrous Sulfate (Ferrous Sulfate), 325 MG PO DAILY Folic Acid (Folic Acid), 1 MG PO DAILY Furosemide (Furosemide), 1 TAB PO DAILY, (Reported) Pantoprazole Sodium Sesquihydr (Pantoprazole Sodium), 40 MG PO DAILY Vit W/ Ferrous Fumara ( One Daily), 1 TAB PO DAILY, (Reported) Spironolactone (Spironolactone), 1 TAB PO DAILY Spironolactone (Spironolactone), 1 TAB PO DAILY, (Reported) Sulfamethoxazole-Trimethoprim (Bactrim), 1 TAB PO BID Thiamine HCl (Thiamine Hydrochloride), 100 MG PO DAILY Discharge Statement: "Patient was advised to return to the ER or call 911 if any headaches, dizziness, shortness of breath, chest pain, abdominal pain, bleeding, fevers, or worsening of medical condition. Patient was counseled about treatment plan, medications, possible side effects, patientverbalized understanding. All questions were answered to the best of my ability. This discharge took greater then 30 minutes in planning, reviewing documentation, counseling the patient, and discussing with other team members." ASSESSMENT ASSESSMENT Assessment Date of Service: Jul 01, 2025 Billing Provider: MELANIA MILLER RESIDENT Common Visit Codes: 69331-AZY/OBS DISCH DAY >30min MELANIA MILLER RESIDENT Jul 01, 2025 10:23 KENNEDY MACHADO RESIDENT Jul 01, 2025 16:11
[2025-07-01] MEDS: HYDROcodone-ACET 5/325MG TAB PO PRN (10:49)
[2025-07-01 12:47] VITALS: BP 113/68; PULSE 92; RESP 16; TEMP 98.5; O2SAT 97
[2025-07-01] MEDS ORDERED: DOXY100C79 PO (13:03)
[2025-07-01 13:43] VITALS: BP 113/68; PULSE 92; RESP 16; TEMP 98.8; O2SAT 97
[2025-07-01] MEDS ORDERED: THIA100T13 PO (13:59)
[2025-07-01] MEDS ORDERED: PANT40T PO (13:59)
[2025-07-01] MEDS ORDERED: FOLI-119 PO (13:59)
[2025-07-01] MEDS ORDERED: FER325T PO (14:46)
== END 2025-07-01 16:25 | disposition home or self-care (01) | DRG 280 ==
LOC: ER 21:50 → OVERFLOW 06-28 08:11 → EAST 06-28 16:05
PROVIDERS: ADMIT Internal Medicine Geriatric Medicine; ATTEND Internal Medicine Geriatric Medicine
DX: K70.31 Alcoholic cirrhosis of liver with ascites (principal); K70.40 Alcoholic hepatic failure without coma; K65.2 Spontaneous bacterial peritonitis; E46 Unspecified protein-calorie malnutrition; D61.818 Other pancytopenia; L03.116 Cellulitis of left lower limb; E88.09 Other disorders of plasma-protein metabolism, not elsewhere classified; K76.6 Portal hypertension; R65.10 Systemic inflammatory response syndrome (SIRS) of non-infectious origin without acute organ dysfunction; I10 Essential (primary) hypertension; D50.9 Iron deficiency anemia, unspecified; E87.70 Fluid overload, unspecified; K42.9 Umbilical hernia without obstruction or gangrene; N20.0 Calculus of kidney; Z82.49 Family history of ischemic heart disease and other diseases of the circulatory system; Z87.891 Personal history of nicotine dependence; Z79.899 Other long term (current) drug therapy; Z68.25 Body mass index [BMI] 25.0-25.9, adult
CPT/HCPCS: 36415; 71045; 73700; 76705; 80053; 80320; 81001; 82140; 82270; 82728; 83540; 83605; 83735; 83880; 84484; 85014; 85018; 85025; 85610; 85730; 86850; 86870; 86900; 86901; 87040; 87081; 93970; G0378; J1756; J2470